=== PATIENT | male | born 1960 | race Caucasian/White ===

== ENCOUNTER 2021-04-14 01:14 | Inpatient (IN) | payer MEDICARE, MEDICAID, SELFPAY ==
[2021-04-14] VITALS (17 sets, daily range): BP systolic 129–168; BP diastolic 70–92; PULSE 85–109; RESP 11–24; TEMP 36.8–37.6; O2SAT 97–100; BMI 27.8
--- NOTE | ~2021-04-14 | CT_ITS ---
EXAMINATION: CT CHEST WITHOUT CONTRAST CT ABDOMEN AND PELVIS WITHOUT AND WITH CONTRAST CLINICAL INFORMATION: Shortness of breath. Cough. Nausea, vomiting, diarrhea. Melena. Pain. COMPARISON: None TECHNIQUE: Multidetector volumetric CT imaging of the chest was done. Noncontrast CT of the abdomen and pelvis performed followed by administration of 80 mL of Omnipaque 350 IV contrast. Acquisition of the abdomen and pelvis then performed during the arterial phase and after a 2 minute delay. Axial MIP volume rendering provided. Sagittal and coronal reformatted images were obtained. This CT examination was performed using dose optimization techniques as appropriate, variously including the following: *Automated exposure control *Adjustment of mA and/or kV according to patient size (this includes techniques or standardized protocols for targeted exams where dose is matched to indication/reason for exam; i.e. extremities or head) *Use of iterative reconstruction technique DLP: 1909 mGy-cm FINDINGS: LUNGS: The central airways are patent. Mild centrilobular emphysema. No dense consolidation. Linear atelectasis/scarring of the anterior right middle lobe. No pneumothorax. Small calcified granuloma at the left lung base. MEDIASTINUM: Normal heart size with coronary artery calcification. No pericardial effusion. No mediastinal lymphadenopathy. PLEURA: There is no pleural effusion. No pleural mass or thickening. AXILLA: No lymphadenopathy. LIVER, GALLBLADDER, AND BILIARY TREE: The liver is normal in size, shape, and attenuation. No focal hepatic lesion or biliary ductal dilatation is present. The gallbladder is unremarkable with no evidence of radiopaque gallstones, gallbladder wall thickening, or obvious pericholecystic inflammatory changes. PANCREAS: Unremarkable. SPLEEN: Unremarkable. ADRENAL GLANDS: Unremarkable. KIDNEYS AND URETERS: The kidneys are normal in size, shape, and attenuation. No hydronephrosis, hydroureter, or calculi seen. No perinephric stranding. BLADDER: Unremarkable. GASTROINTESTINAL TRACT: The stomach is unremarkable. Normal caliber of the small bowel. There is no obstruction. Diffuse colonic diverticulosis noted without diverticulitis. No colonic wall thickening or inflammatory change. There is a normal appendix. Mild to moderate colonic stool burden. There is no blush of contrast intraluminally to suggest an active arterial bleed. No pooling of contrast on the 2 minute delayed acquisition. ABDOMINAL WALL: No significant hernia is appreciated. LYMPH NODES: Normal. VASCULAR: Normal caliber aorta with mild atherosclerotic calcifications. PELVIC VISCERA: The prostate and seminal vesicles are unremarkable. OSSEOUS STRUCTURES: No acute or suspicious osseous abnormality. Mild degenerative changes throughout the spine. Cervical fusion hardware anteriorly at C6-C7 noted. Mild degenerative changes of the hips. Partially fused bilateral sacroiliac joints. CT/CT gi bleed abd pel wo/w con IMPRESSION: 1. Mild emphysema in the lungs. No consolidation. 2. No evidence of active GI bleed. Colonic diverticulosis without diverticulitis. Fleischner guidelines were followed.
--- NOTE | 2021-04-14 01:43 | ED.NAVMDI ---
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 Patient is a sometimes cigarette smoker and states that approximately 5 days ago he awoke in the middle the night and immediately became nauseous and began vomiting with dizziness and shortness of breath. Patient states that since that time he is consistently had nausea and vomiting that he denies any blood was present. In addition, patient has had numerous episodes of diarrhea that have become watery in nature but he denies any presence gross blood or darkness to it. Patient states this evening he began developing some chest pain and has been unable to keep his medications down for the past 2 days which include his methadone. Related Data Allergies Allergy/AdvReac Type Severity Reaction Status Date / Time prochlorperazine Allergy Unknown TINGLING Verified 04/14/21 02:01 [From COMPAZINE] Review of Systems Review of Systems: Pertinent positives and negatives as stated in HPI 10 point review of systems otherwise negative. [facility] Past Medical History Source: nursing notes reviewed Social History Social History Advance Directives: No Physical Exam Vital Signs: Vital Signs: Last Vital Signs Temp 98.6 F 04/14/21 05:31 Pulse 92 04/14/21 05:31 Resp 16 04/14/21 05:31 BP 148/82 H 04/14/21 05:31 Pulse Ox 98 04/14/21 04:01 BMI result Body Mass Index 27.8 VITAL SIGNS: Reviewed. GENERAL: Well developed, well nourished, in no acute distress. HEAD: Normocephalic/atraumatic EYES: PERRLA, EOMI with conjunctival pallor OROPHARYNX: no oral lesions noted, posterior pharynx clear, with pale mucosa NECK: Supple, no adenopathy LUNGS: Normal breath sounds, with tachypnea SpO2<100> CARDIOVASCULAR: Regular rate and rhythm without noted murmurs, no JVD or lower extremity edema. ABDOMEN: Soft, mild abdominal discomfort, non-distended with bowel sounds. JIM: No skin tags or external hemorrhoids noted, melena noted to finger, good rectal tone. MUSCULOSKELETAL: No tenderness, deformities, or effusions noted on gross inspection. EXTREMITIES: No cyanosis, clubbing or edema. SKIN: Inspection of the skin reveals no rashes, but discoloration noted between pallor/jaundice NEUROLOGIC: Alert and oriented x 4. Strength and sensation to light touch were grossly intact x 4. Course Course Course Narrative: 60-year-old male with history and clinical presentation concerning for anemia and possibly liver problems. On review of all investigations patient is severely anemic with MCV-97.8, and RBC-1.35. Retic Count-7.6%. Patient T&S with 3U RBCs ordered. All investigations reviewed to include imaging and this case was discussed with the inpatient hospitalist who accepts admission. MDM - Nausea/Vomiting/Diarrhea Lab Data Result diagrams: 04/14/21 02:45 04/14/21 02:45 Labs: Lab Results 04/14/21 04/14/21 04/14/21 Range/Units 01:48 02:45 02:45 WBC 10.4 (4.8-10.8) X10*3/uL RBC 1.35 L (4.60-5.80) X10*6/uL Hgb 4.4 L* (14.0-18.0) g/dl Hct 13.2 L* (42.0-52.0) % MCV 97.8 (80.0-98.0) fL MCH 32.6 (27.0-33.0) pg MCHC 33.3 (31.0-36.0) g/dl RDW 14.3 (11.0-16.0) % Plt Count 195 (160-400) X10*3/uL MPV 8.8 L (9.4-12.4) fL Immature Gran % (Auto) 2.1 H (0.0-0.4) % Neut % (Auto) 73.7 H (45-73) % Lymph % (Auto) 16.5 L (20-40) % [place] % (Auto) 7.3 (2-11) % Eos % (Auto) 0.3 (0-4) % Baso % (Auto) 0.1 (0-2) % Lymph # (Auto) 1.7 (1.2-4.9) X10*3/uL [place] # (Auto) 0.8 (0.1-1.2) X10*3/uL Eos # (Auto) 0.0 (0.0-0.4) X10*3/uL Baso # (Auto) 0.0 (0.0-0.2) X10*3/uL Abs Immat Gran (auto) 0.22 H (0.00-0.03) X10*3/uL Absolute Neuts (auto) 7.7 (2.0-8.3) x10*3/uL Absolute Nucleated RBC 0.070 H (0.0-0.012) X10*3/uL Nucleated RBC % (auto) 0.7 H (0.0-0.2) /100WBC Absolute Retic (0.026-0.095) X10*6/uL Percent Retic (0.5-1.8) % Immature Retic Fraction (2.3-13.4) % Retic Hgb Equivalent (30.0-35.0) pg Sodium 139 (135-145) mmol/L Potassium 3.7 (3.3-5.1) mmol/L Chloride 107 (96-108) mmol/L Carbon Dioxide 25 (22-29) mmol/L Anion Gap 11 L (12-20) BUN 12 (9-16) mg/dL Creatinine 0.80 (0.5-1.4) mg/dL Estim Creat Clear Calc 109.1 Estimated GFR > 60 Random Glucose 111 (60-115) mg/dL Lactic Acid (0.5-2.0) mmol/L Calcium 8.2 L (8.4-10.2) mg/dL Magnesium 2.0 (1.6-2.6) mg/dL Total Bilirubin < 0.2 (0.0-1.0) mg/dL AST 11 (5-37) U/L ALT 8 (0-40) U/L Alkaline Phosphatase 46 (39-117) U/L Lactate Dehydrogenase 125 (118-273) U/L Troponin I High Sens (<3.5-35.0) ng/L B-Natriuretic Peptide (<100) pg/mL Total Protein 5.2 L (6.5-8.0) g/dL Albumin 3.5 (3.5-5.0) g/dL Lipase 11 (8-78) U/L Urine Color Urine Appearance Urine pH (5.0-8.0) Ur Specific [place] (1.005-1.025) Urine Protein (NEG-TRACE) MG/DL Urine Glucose (UA) (NEG) MG/DL Urine Ketones (NEG) MG/DL Urine Blood (NEG) Urine Nitrite (NEG) Ur Leukocyte Esterase (NEG) Stool Occult Blood (NEGATIVE) COVID-19 (KEILY) Negative (Negative) COVID-19 Clin Com See Note Blood Type Antibody Screen Crossmatch 04/14/21 04/14/21 04/14/21 Range/Units 02:45 02:45 03:01 WBC (4.8-10.8) X10*3/uL RBC (4.60-5.80) X10*6/uL Hgb (14.0-18.0) g/dl Hct (42.0-52.0) % MCV (80.0-98.0) fL MCH (27.0-33.0) pg MCHC (31.0-36.0) g/dl RDW (11.0-16.0) % Plt Count (160-400) X10*3/uL MPV (9.4-12.4) fL Immature Gran % (Auto) (0.0-0.4) % Neut % (Auto) (45-73) % Lymph % (Auto) (20-40) % [place] % (Auto) (2-11) % Eos % (Auto) (0-4) % Baso % (Auto) (0-2) % Lymph # (Auto) (1.2-4.9) X10*3/uL [place] # (Auto) (0.1-1.2) X10*3/uL Eos # (Auto) (0.0-0.4) X10*3/uL Baso # (Auto) (0.0-0.2) X10*3/uL Abs Immat Gran (auto) (0.00-0.03) X10*3/uL Absolute Neuts (auto) (2.0-8.3) x10*3/uL Absolute Nucleated RBC (0.0-0.012) X10*3/uL Nucleated RBC % (auto) (0.0-0.2) /100WBC Absolute Retic (0.026-0.095) X10*6/uL Percent Retic (0.5-1.8) % Immature Retic Fraction (2.3-13.4) % Retic Hgb Equivalent (30.0-35.0) pg Sodium (135-145) mmol/L Potassium (3.3-5.1) mmol/L Chloride (96-108) mmol/L Carbon Dioxide (22-29) mmol/L Anion Gap (12-20) BUN (9-16) mg/dL Creatinine (0.5-1.4) mg/dL Estim Creat Clear Calc Estimated GFR Random Glucose (60-115) mg/dL Lactic Acid 1.2 (0.5-2.0) mmol/L Calcium (8.4-10.2) mg/dL Magnesium (1.6-2.6) mg/dL Total Bilirubin (0.0-1.0) mg/dL AST (5-37) U/L ALT (0-40) U/L Alkaline Phosphatase (39-117) U/L Lactate Dehydrogenase (118-273) U/L Troponin I High Sens 3.5 (<3.5-35.0) ng/L B-Natriuretic Peptide 96 (<100) pg/mL Total Protein (6.5-8.0) g/dL Albumin (3.5-5.0) g/dL Lipase (8-78) U/L Urine Color Urine Appearance Urine pH (5.0-8.0) Ur Specific [place] (1.005-1.025) Urine Protein (NEG-TRACE) MG/DL Urine Glucose (UA) (NEG) MG/DL Urine Ketones (NEG) MG/DL Urine Blood (NEG) Urine Nitrite (NEG) Ur Leukocyte Esterase (NEG) Stool Occult Blood (NEGATIVE) COVID-19 (KEILY) (Negative) COVID-19 Clin Com Blood Type A Positive Antibody Screen NEGATIVE Crossmatch See Detail 04/14/21 04/14/21 04/14/21 Range/Units 03:01 03:39 03:53 WBC (4.8-10.8) X10*3/uL RBC (4.60-5.80) X10*6/uL Hgb (14.0-18.0) g/dl Hct (42.0-52.0) % MCV (80.0-98.0) fL MCH (27.0-33.0) pg MCHC (31.0-36.0) g/dl RDW (11.0-16.0) % Plt Count (160-400) X10*3/uL MPV (9.4-12.4) fL Immature Gran % (Auto) (0.0-0.4) % Neut % (Auto) (45-73) % Lymph % (Auto) (20-40) % [place] % (Auto) (2-11) % Eos % (Auto) (0-4) % Baso % (Auto) (0-2) % Lymph # (Auto) (1.2-4.9) X10*3/uL [place] # (Auto) (0.1-1.2) X10*3/uL Eos # (Auto) (0.0-0.4) X10*3/uL Baso # (Auto) (0.0-0.2) X10*3/uL Abs Immat Gran (auto) (0.00-0.03) X10*3/uL Absolute Neuts (auto) (2.0-8.3) x10*3/uL Absolute Nucleated RBC (0.0-0.012) X10*3/uL Nucleated RBC % (auto) (0.0-0.2) /100WBC Absolute Retic 0.105 H (0.026-0.095) X10*6/uL Percent Retic 7.6 H (0.5-1.8) % Immature Retic Fraction 50.5 H (2.3-13.4) % Retic Hgb Equivalent 35.8 H (30.0-35.0) pg Sodium (135-145) mmol/L Potassium (3.3-5.1) mmol/L Chloride (96-108) mmol/L Carbon Dioxide (22-29) mmol/L Anion Gap (12-20) BUN (9-16) mg/dL Creatinine (0.5-1.4) mg/dL Estim Creat Clear Calc Estimated GFR Random Glucose (60-115) mg/dL Lactic Acid (0.5-2.0) mmol/L Calcium (8.4-10.2) mg/dL Magnesium (1.6-2.6) mg/dL Total Bilirubin (0.0-1.0) mg/dL AST (5-37) U/L ALT (0-40) U/L Alkaline Phosphatase (39-117) U/L Lactate Dehydrogenase (118-273) U/L Troponin I High Sens (<3.5-35.0) ng/L B-Natriuretic Peptide (<100) pg/mL Total Protein (6.5-8.0) g/dL Albumin (3.5-5.0) g/dL Lipase (8-78) U/L Urine Color YELLOW Urine Appearance CLEAR Urine pH 7.5 (5.0-8.0) Ur Specific [place] 1.010 (1.005-1.025) Urine Protein NEG (NEG-TRACE) MG/DL Urine Glucose (UA) NEG (NEG) MG/DL Urine Ketones 5 (NEG) MG/DL Urine Blood NEG (NEG) Urine Nitrite NEG (NEG) Ur Leukocyte Esterase NEG (NEG) Stool Occult Blood POSITIVE (NEGATIVE) COVID-19 (KEILY) (Negative) COVID-19 Clin Com Blood Type Antibody Screen Crossmatch Discharge Plan Discharge Clinical Impression: Gastroenteritis, Dehydration, Acute blood loss anemia Patient Disposition: Admitted As Inpatient
[2021-04-14] MEDS: ondansetron HCL 4 MG/2 ML VIAL IVPUSH ×5 (01:54→21:56)
[2021-04-14] MEDS: Acetaminophen 325 MG TABLET 975 MG PO (01:54)
[2021-04-14] MEDS: 0.9 % Sodium Chloride 2,000 ML 999 ML IV (02:01)
[2021-04-14 02:09] LABS: COVID-19 Test Negative (Negative); IDNOW Serial# 9DD0AD1C
[2021-04-14 02:50] LABS: MANUAL DIFF FLAG NO
[2021-04-14 02:51] LABS: Basophils Percent Auto 0.1 % (0-2); Eosinophils Percent Auto 0.3 % (0-4); Imm Gran Abs Auto 0.22 X10*3/uL (0.00-0.03); Imm Gran Pct Auto 2.1 % (0.0-0.4); Lymphocytes Absolute Auto 1.7 X10*3/uL (1.2-4.9); Lymphocytes Percent Auto 16.5 % (20-40); Mean Corpuscular HGB Conc 33.3 g/dl (31.0-36.0); Mean Corpuscular Hemoglobin 32.6 pg (27.0-33.0); Mean Corpuscular Volume 97.8 fL (80.0-98.0); Mean Platelet Volume 8.8 fL (9.4-12.4); Monocytes Absolute Auto 0.8 X10*3/uL (0.1-1.2); Monocytes Percent Auto 7.3 % (2-11); NRBC Pct Auto 0.7 /100WBC (0.0-0.2); Neutrophils Absolute Auto 7.7 x10*3/uL (2.0-8.3); Neutrophils Percent Auto 73.7 % (45-73); Platelet Count 195 X10*3/uL (160-400); Red Blood Count 1.35 X10*6/uL (4.60-5.80); Red Cell Distribution Width 14.3 % (11.0-16.0); White Blood Count 10.4 X10*3/uL (4.8-10.8)
[2021-04-14 02:54] LABS: Hematocrit 13.2 % (42.0-52.0); Hemoglobin 4.4 g/dl (14.0-18.0)
--- NOTE | 2021-04-14 03:00 | PC.NURSE ---
Assumed care of pt Pt arrived via EMS Pt c/o n/v/d x 5 days. Denies any abdominal pain Pt also c/o SOB with exertion Per pt, has not gotten Covid Vaccine. Denies any sick contacts or recent travel Will continue to monitor
[2021-04-14 03:04] LABS: Lactic Acid 1.2 mmol/L (0.5-2.0)
[2021-04-14 03:08] LABS: Immature Retic Fraction 50.5 % (2.3-13.4); Retic HGB Equivalent 35.8 pg (30.0-35.0); Reticulocyte Percent 7.6 % (0.5-1.8); Reticulocytes Absolute 0.105 X10*6/uL (0.026-0.095)
[2021-04-14 03:09] LABS: Alanine Aminotransferase 8 U/L (0-40); Albumin Level 3.5 g/dL (3.5-5.0); Alkaline Phosphatase 46 U/L (39-117); Anion Gap 11 (12-20); Aspartate Amino Transferase 11 U/L (5-37); Bilirubin Total < 0.2 mg/dL (0.0-1.0); Blood Urea Nitrogen 12 mg/dL (9-16); Calcium 8.2 mg/dL (8.4-10.2); Carbon Dioxide 25 mmol/L (22-29); Chloride 107 mmol/L (96-108); Creatinine Clr Calc Pharmacy 109.1; Estimated Glomerular Filt Rate > 60; Glucose Random 111 mg/dL (60-115); Lipase 11 U/L (8-78); Potassium 3.7 mmol/L (3.3-5.1); Sodium 139 mmol/L (135-145); Total Protein 5.2 g/dL (6.5-8.0)
[2021-04-14 03:16] LABS: B Type Natriuretic Peptide 96 pg/mL (<100); Troponin-I High Sensitivity 3.5 ng/L (<3.5-35.0)
[2021-04-14 03:33] LABS: Lactate Dehydrogenase 125 U/L (118-273)
[2021-04-14 03:45] LABS: Appearance Urine CLEAR; Color Urine YELLOW; Glucose Urine UA NEG (NEG); Leukocyte Esterase Urine NEG (NEG); Nitrite Urine NEG (NEG); PH 7.5 (5.0-8.0); Urine Blood NEG (NEG); Urine Ketones 5 MG/DL (NEG); Urine Protein NEG (NEG-TRACE)
--- NOTE | 2021-04-14 03:45 | PC.NURSE ---
Pt given urinal per request. Pt c/o inability to void. Per pt, secondary to ADHD meds. Bladder scan = >230 mL. As this nurse was putting back bladder scanner, pt attempted to void in urinal and had output of 300 cc. output clear and pale yellow urine Will continue to monitor
[2021-04-14 03:56] LABS: OBS Int Ctl Valid YES; OBS1 POSITIVE (NEGATIVE)
[2021-04-14] MEDS: Pantoprazole Sodium 40 MG/10 ML VIAL 80 MG IVPUSH (04:03)
[2021-04-14] MEDS: HYDROmorphone HCl 1 MG/ML SYRINGE IVPUSH (04:20)
[2021-04-14] MEDS: iohexoL 350 MG/ML 100 ML INFUS..BTL 80 ML IV (04:59)
--- NOTE | 2021-04-14 05:54 | PC.NURSE ---
First unit of PRBC infusing through warmer with WAYNE Anand as second check. Pt tolerating first unit Pt continious to c/o nausea and pain. MD made aware Will continue to monitor
--- NOTE | 2021-04-14 06:55 | P.HPHOSP_ITS ---
History of Present Illness Date of Service: 04/14/21 Chief Complaint: abd pain This is a 60-year-old male who reports history of hypertension who presents to the hospital with complaints of abdominal pain nausea or vomiting for the past 5 days. Patient reports generalized abdominal pain, diarrhea that is dark/tarry in color, no fever or chills, has SOB, no chest pain. no urinary symptoms. no headache or change in vision, has dizziness. He denies use of NSAIDs. All other review of system negative On arrival to the ED patient hemodynamically stable with no significant abnormal vitals satting 100% on room air Labs are significant for hemoglobin of 4.4 hematocrit of 13.2, no previous for comparison. BUN normal, UA negative. Chest CT and abdominal CT negative. Abdominal CT showed diverticulosis with no diverticulitis. Guaiac positive Patient receiving 2 units of PRBC and will be admitted for further management Review of Systems Review of Systems: Yes all other systems are reviewed and are negative [facility] Medical History (Updated 04/14/21 @ 06:59 by Rachael Lopez MD) Hypertension Family History (Updated 04/14/21 @ 07:00 by Rachael Lopez MD) Other No family history of disorders Surgical History (Updated 04/14/21 @ 07:00 by Rachael Lopez MD) No pertinent past surgical history Social History Advance Directives: No Meds Allergies Allergy/AdvReac Type Severity Reaction Status Date / Time prochlorperazine Allergy Unknown TINGLING Verified 04/14/21 02:01 [From COMPAZINE] Physical Exam Vital Signs and Narrative: Vital Signs: Last Vital Signs Temp 98.2 F 04/14/21 06:55 Pulse 109 H 04/14/21 06:55 Resp 13 04/14/21 06:55 BP 156/84 H 04/14/21 06:55 Pulse Ox 100 04/14/21 06:16 BMI result Body Mass Index 27.8 Const: General: cooperative and no acute distress Orientation/consciousness: patient oriented x3 Eyes: General: appearance normal, both eyes and all related structures Pupils: Equal, round and reactive pupils present Resp: Effort & Inspection: normal respiratory effort, able to speak in complete sentences and abnormal respiratory pattern Auscultation: clear to auscultation bilaterally Cardio: Rate: regular rate Rhythm: regular rhythm GI: Other: abd tenderness with minimal palpation, soft abdo, guarding Skin: General skin exam: no rashes or lesions noted Neuro: General: patient oriented x3 Cranial nerves: Yes Equal, round and reactive pupils present Cognition (Neuro): normal cognition Extrem: General: Yes normal to inspection and Yes no pedal edema Results Labs CBC and Chem 7: 04/14/21 02:45 04/14/21 02:45 Labs: Laboratory Results - last 24 hr 04/14/21 04/14/21 04/14/21 01:48 02:45 02:45 MCV 97.8 MCH 32.6 MCHC 33.3 RDW 14.3 Plt Count 195 MPV 8.8 L Immature Gran % (Auto) 2.1 H Neut % (Auto) 73.7 H Lymph % (Auto) 16.5 L [place] % (Auto) 7.3 Eos % (Auto) 0.3 Baso % (Auto) 0.1 Lymph # (Auto) 1.7 [place] # (Auto) 0.8 Eos # (Auto) 0.0 Baso # (Auto) 0.0 Abs Immat Gran (auto) 0.22 H Absolute Neuts (auto) 7.7 Absolute Nucleated RBC 0.070 H Nucleated RBC % (auto) 0.7 H Absolute Retic Percent Retic Immature Retic Fraction Retic Hgb Equivalent Anion Gap 11 L Estim Creat Clear Calc 109.1 Estimated GFR > 60 Random Glucose 111 Lactic Acid Calcium 8.2 L Magnesium 2.0 Total Bilirubin < 0.2 AST 11 ALT 8 Alkaline Phosphatase 46 Lactate Dehydrogenase 125 Troponin I High Sens B-Natriuretic Peptide Total Protein 5.2 L Albumin 3.5 Lipase 11 Urine Color Urine Appearance Urine pH Ur Specific [place] Urine Protein Urine Glucose (UA) Urine Ketones Urine Blood Urine Nitrite Ur Leukocyte Esterase Stool Occult Blood COVID-19 (KEILY) Negative COVID-19 Clin Com See Note Blood Type Antibody Screen Crossmatch 04/14/21 04/14/21 04/14/21 02:45 02:45 03:01 MCV MCH MCHC RDW Plt Count MPV Immature Gran % (Auto) Neut % (Auto) Lymph % (Auto) [place] % (Auto) Eos % (Auto) Baso % (Auto) Lymph # (Auto) [place] # (Auto) Eos # (Auto) Baso # (Auto) Abs Immat Gran (auto) Absolute Neuts (auto) Absolute Nucleated RBC Nucleated RBC % (auto) Absolute Retic Percent Retic Immature Retic Fraction Retic Hgb Equivalent Anion Gap Estim Creat Clear Calc Estimated GFR Random Glucose Lactic Acid 1.2 Calcium Magnesium Total Bilirubin AST ALT Alkaline Phosphatase Lactate Dehydrogenase Troponin I High Sens 3.5 B-Natriuretic Peptide 96 Total Protein Albumin Lipase Urine Color Urine Appearance Urine pH Ur Specific [place] Urine Protein Urine Glucose (UA) Urine Ketones Urine Blood Urine Nitrite Ur Leukocyte Esterase Stool Occult Blood COVID-19 (KEILY) COVID-19 Clin Com Blood Type A Positive Antibody Screen NEGATIVE Crossmatch See Detail 04/14/21 04/14/21 04/14/21 03:01 03:39 03:53 MCV MCH MCHC RDW Plt Count MPV Immature Gran % (Auto) Neut % (Auto) Lymph % (Auto) [place] % (Auto) Eos % (Auto) Baso % (Auto) Lymph # (Auto) [place] # (Auto) Eos # (Auto) Baso # (Auto) Abs Immat Gran (auto) Absolute Neuts (auto) Absolute Nucleated RBC Nucleated RBC % (auto) Absolute Retic 0.105 H Percent Retic 7.6 H Immature Retic Fraction 50.5 H Retic Hgb Equivalent 35.8 H Anion Gap Estim Creat Clear Calc Estimated GFR Random Glucose Lactic Acid Calcium Magnesium Total Bilirubin AST ALT Alkaline Phosphatase Lactate Dehydrogenase Troponin I High Sens B-Natriuretic Peptide Total Protein Albumin Lipase Urine Color YELLOW Urine Appearance CLEAR Urine pH 7.5 Ur Specific [place] 1.010 Urine Protein NEG Urine Glucose (UA) NEG Urine Ketones 5 Urine Blood NEG Urine Nitrite NEG Ur Leukocyte Esterase NEG Stool Occult Blood POSITIVE COVID-19 (KEILY) COVID-19 Clin Com Blood Type Antibody Screen Crossmatch Imaging Radiologist's Impressions: Impressions Abdomen/Pelvis CT 04/14/21 04:50 IMPRESSION: 1. Mild emphysema in the lungs. No consolidation. 2. No evidence of active GI bleed. Colonic diverticulosis without diverticulitis. Fleischner guidelines were followed. Chest CT 04/14/21 04:50 IMPRESSION: 1. Mild emphysema in the lungs. No consolidation. 2. No evidence of active GI bleed. Colonic diverticulosis without diverticulitis. Fleischner guidelines were followed. Assessment and Plan (1) Acute blood loss anemia: Status: Acute (2) Abdominal pain: Status: Acute (3) Nausea vomiting and diarrhea: Status: Acute (4) Gastroenteritis: Status: Acute 60-year-old male with past medical history of hypertension presents the hospital with complaints of abdominal pain nausea vomiting as well as dark diarrhea found to have acute anemia # acute blood loss anemia - guaiac positive - normal BUN - denies history of NSAID use - possibly secondary to gastroenteritis - transfused 2 units of PRBC - follow CBC post transfusion - GI consulted - IV PPI BID # abdominal pain, nausea vomiting, diarrhea - abd CT negative - possibly secondary to gastroenteritis - will obtain C diff, as well as stool culture - supportive measure - pain control # on methadone - care team consulted as pt will be npo # HTN - stable - not on home medications - monitor DVT ppx: SCDs Quality Stroke Does the patient have a stroke diagnosis?: No VTE Prior VTE?: No VTE Risk Level:: Medical - moderate - high VTE Device Contraindication: N/A - Device Ordered VTE Drug Contraindication: N/A - Med Ordered
[2021-04-14] MEDS: HYDROmorphone HCl 1 MG/ML SYRINGE 0.5 MG IVPUSH ×3 (07:34→22:00)
--- NOTE | 2021-04-14 08:24 | PM.GICN ---
History of Present Illness Data of Consult Service Date: 04/14/21 Requesting physician: Rachael Lopez Primary Care Provider: Unknown Physician HPI Reason for consult: anemia 60-year-old male w/ history of hypertension, ADHD and OA who I am seeing for assessment for acute anemia. he has had severe burning diffuse abdominal pain 10/10 in severity without radiation which is constant for the last 5 days and is worse with eating food. he has noted coffee colored emesis and nausea, as well as dark tarry stools. Prior to this he was normal, denies weight loss, but brown shave poor appetite last few days. no chest pain. no urinary symptoms. no headache or change in vision, has dizziness. no fever or chills. He denies use of NSAIDs. remote hx of drug use, but no alcohol . Never had EGD or colonoscopy. Labs are significant for hemoglobin of 4.4 hematocrit of 13.2, no previous for comparison.? BUN normal, UA negative.? Chest CT and abdominal CT negative.? Abdominal CT showed diverticulosis with no diverticulitis. Guaiac positive. Patient receiving 2 units of PRBC Review of Systems Review of Systems: Constitutional : No Weight loss, No Fever, No Chills ENT/Mouth : No sore throat, No Rhinorrhea Eyes: No Swelling, No Redness Cardiovascular : No Chest Pain, No SOB, No Edema Respiratory : No Cough, No Sputum, No Wheezing Gastrointestinal : see HPI Genitourinary : NO Dysuria, No Urinary Frequency, No Hematuria, No Urgency Musculoskeletal : + joint pain, No Myalgias, No Joint Swelling Skin : No Skin Lesions, No rash Neuro : No Weakness, No Numbness, No Dizziness, No Headache Psych : No Anxiety/Panic, No Depression Heme/Lymph: No Bruising, No Lymphadenopathy Endocrine : No Polyuria, No Polydipsia All other systems reviewed and are negative. [facility] Past Medical History Medical History (Updated 04/14/21 @ 06:59 by Rachael Lopez MD) Hypertension Family History Family History (Updated 04/14/21 @ 07:00 by Rachael Lopez MD) Other No family history of disorders Surgical History Surgical History (Updated 04/14/21 @ 07:00 by Rachael Lopez MD) No pertinent past surgical history Social History Social History Advance Directives: No Meds Allergies Allergy/AdvReac Type Severity Reaction Status Date / Time prochlorperazine Allergy Unknown [place] Verified 04/14/21 02:01 [From COMPAZINE] Active Medications: Current Medications Acetaminophen (Acetaminophen 325 Mg Tablet) 650 mg PO Q6H PRN PRN Reason: Pain, Mild (Pain Scale 1-3) Hydromorphone HCl (Hydromorphone Hcl 1 Mg/Ml Syringe) 0.5 mg IVPUSH Q4H PRN; Protocol PRN Reason: Pain, Severe (Pain Scale 7-10) Last Admin: 04/14/21 07:34 Dose: 0.5 mg Documented by: Lactated Ringer's (Lr) 1,000 mls @ 100 mls/hr IVCONT .Q10H CATHLEEN Ondansetron HCl (Ondansetron Hcl 4 Mg/2 Ml Vial) 4 mg IVPUSH Q8H PRN PRN Reason: Nausea and Vomiting Last Admin: 04/14/21 07:34 Dose: 4 mg Documented by: Pantoprazole Sodium (Pantoprazole Sodium 40 Mg/10 Ml Vial) 40 mg IVPUSH BID@0630,1630 [facility] Sodium Chloride (0.9 % Sodium Chloride Flush 3 Ml Syringe) 3 ml IVFLUSH QSHIFT [facility] Home Medications Medication Instructions Recorded Confirmed Last Taken Type amlodipine 10 mg tablet 1 tab PO DAILY 04/14/21 Unknown History dextroamphetamine-amphetamine ER 1 cap PO BEDTIME 04/14/21 Unknown History 30 mg 24hr capsule,extend release gabapentin 800 mg tablet 1 tab PO TID 04/14/21 Unknown History lisinopril 40 mg tablet 40 mg PO DAILY 04/14/21 Unknown History methadone 10 mg/mL oral concentrate 110 mg PO DAILY 04/14/21 Unknown History Physical Exam Vital Signs: Vital Signs: Last Vital Signs Temp 98.2 F 04/14/21 07:23 Pulse 88 04/14/21 07:23 Resp 18 04/14/21 07:23 BP 162/84 H 04/14/21 07:23 Pulse Ox 97 04/14/21 07:23 BMI result Body Mass Index 27.8 Const: General: cooperative (pallor noted ) Orientation/consciousness: patient oriented x3 Eyes: General: appearance normal, both eyes and all related structures Pupils: Equal, round and reactive pupils present Resp: Effort & Inspection: normal respiratory effort, able to speak in complete sentences and abnormal respiratory pattern Auscultation: clear to auscultation bilaterally Cardio: Rate: regular rate Rhythm: regular rhythm GI: Other: abd tenderness with minimal palpation, soft abdo, guarding Skin: General skin exam: no rashes or lesions noted Neuro: General: patient oriented x3 Cranial nerves: Yes Equal, round and reactive pupils present Cognition (Neuro): normal cognition Extrem: General: Yes normal to inspection and Yes no pedal edema Results Labs CBC & Chem 7: 04/14/21 02:45 04/14/21 02:45 Labs: Short CBC 04/14/21 Range/Units 02:45 WBC 10.4 (4.8-10.8) X10*3/uL Hgb 4.4 L* (14.0-18.0) g/dl Hct 13.2 L* (42.0-52.0) % Plt Count 195 (160-400) X10*3/uL BMP 04/14/21 02:45 Sodium 139 Potassium 3.7 Chloride 107 Carbon Dioxide 25 BUN 12 Creatinine 0.80 Calcium 8.2 L Liver Function 04/14/21 Range/Units 02:45 Total Bilirubin < 0.2 (0.0-1.0) mg/dL AST 11 (5-37) U/L ALT 8 (0-40) U/L Alkaline Phosphatase 46 (39-117) U/L Albumin 3.5 (3.5-5.0) g/dL Urine 04/14/21 Range/Units 03:39 Urine Color YELLOW Urine Appearance CLEAR Urine pH 7.5 (5.0-8.0) Ur Specific [place] 1.010 (1.005-1.025) Urine Protein NEG (NEG-TRACE) MG/DL Urine Glucose (UA) NEG (NEG) MG/DL Imaging CT scan - abdomen: Attestation: I personally reviewed and interpreted this imaging study as follows: My impression: atherosclerosis, constipation, diverticulosis Assessment and Plan (1) Acute blood loss anemia: Status: Acute 1/ Acute blood loss anemia possibly due to PUD, j carlos vee tear, colitis, gastroenteritis, no acute findings on imaging, no evidence of aorto enteric fistula or ischemic bowel, no bone marrow failure with good retic count PLAN: 1/ EGD and colonoscopy tomorrow 2/ can allow clears if tolerated 3/ scheduled anti emetic 4/ PPI -pantoprazole 40 mg IV BID 5/ check Hep b, C status Procedures Date of Service Date of Service: 04/14/21
--- NOTE | 2021-04-14 08:26 | P.PNIM_ITS ---
Subjective Subjective Date of Service: 04/14/21 Physical Exam Vital Signs: Vital Signs: Last Vital Signs Temp 98.2 F 04/14/21 07:23 Pulse 88 04/14/21 07:23 Resp 18 04/14/21 07:23 BP 162/84 H 04/14/21 07:23 Pulse Ox 97 04/14/21 07:23 BMI result Body Mass Index 27.8 Objective Data Active Medications Acetaminophen (Acetaminophen 325 Mg Tablet) 650 mg PO Q6H PRN PRN Reason: Pain, Mild (Pain Scale 1-3) Hydromorphone HCl (Hydromorphone Hcl 1 Mg/Ml Syringe) 0.5 mg IVPUSH Q4H PRN; Protocol PRN Reason: Pain, Severe (Pain Scale 7-10) Last Admin: 04/14/21 07:34 Dose: 0.5 mg Documented by: ALEXANDRO Lactated Ringer's (Lr) 1,000 mls @ 100 mls/hr IVCONT .Q10H CATHLEEN Ondansetron HCl (Ondansetron Hcl 4 Mg/2 Ml Vial) 4 mg IVPUSH Q8H PRN PRN Reason: Nausea and Vomiting Last Admin: 04/14/21 07:34 Dose: 4 mg Documented by: ALEXANDRO Pantoprazole Sodium (Pantoprazole Sodium 40 Mg/10 Ml Vial) 40 mg IVPUSH BID@0630,1630 [facility] Sodium Chloride (0.9 % Sodium Chloride Flush 3 Ml Syringe) 3 ml IVFLUSH QSHIFT [facility] Labs CBC & Chem 7: 04/14/21 02:45 04/14/21 02:45 Labs: Laboratory Results - last 24 hr 04/14/21 04/14/21 04/14/21 01:48 02:45 02:45 MCV 97.8 MCH 32.6 MCHC 33.3 RDW 14.3 Plt Count 195 MPV 8.8 L Immature Gran % (Auto) 2.1 H Neut % (Auto) 73.7 H Lymph % (Auto) 16.5 L [place] % (Auto) 7.3 Eos % (Auto) 0.3 Baso % (Auto) 0.1 Lymph # (Auto) 1.7 [place] # (Auto) 0.8 Eos # (Auto) 0.0 Baso # (Auto) 0.0 Abs Immat Gran (auto) 0.22 H Absolute Neuts (auto) 7.7 Absolute Nucleated RBC 0.070 H Nucleated RBC % (auto) 0.7 H Absolute Retic Percent Retic Immature Retic Fraction Retic Hgb Equivalent Anion Gap 11 L Estim Creat Clear Calc 109.1 Estimated GFR > 60 Random Glucose 111 Lactic Acid Calcium 8.2 L Magnesium 2.0 Total Bilirubin < 0.2 AST 11 ALT 8 Alkaline Phosphatase 46 Lactate Dehydrogenase 125 Troponin I High Sens B-Natriuretic Peptide Total Protein 5.2 L Albumin 3.5 Lipase 11 Urine Color Urine Appearance Urine pH Ur Specific [place] Urine Protein Urine Glucose (UA) Urine Ketones Urine Blood Urine Nitrite Ur Leukocyte Esterase Stool Occult Blood COVID-19 (KEILY) Negative COVID-19 Clin Com See Note Blood Type Antibody Screen Crossmatch 04/14/21 04/14/21 04/14/21 02:45 02:45 03:01 MCV MCH MCHC RDW Plt Count MPV Immature Gran % (Auto) Neut % (Auto) Lymph % (Auto) [place] % (Auto) Eos % (Auto) Baso % (Auto) Lymph # (Auto) [place] # (Auto) Eos # (Auto) Baso # (Auto) Abs Immat Gran (auto) Absolute Neuts (auto) Absolute Nucleated RBC Nucleated RBC % (auto) Absolute Retic Percent Retic Immature Retic Fraction Retic Hgb Equivalent Anion Gap Estim Creat Clear Calc Estimated GFR Random Glucose Lactic Acid 1.2 Calcium Magnesium Total Bilirubin AST ALT Alkaline Phosphatase Lactate Dehydrogenase Troponin I High Sens 3.5 B-Natriuretic Peptide 96 Total Protein Albumin Lipase Urine Color Urine Appearance Urine pH Ur Specific [place] Urine Protein Urine Glucose (UA) Urine Ketones Urine Blood Urine Nitrite Ur Leukocyte Esterase Stool Occult Blood COVID-19 (KEILY) COVID-19 Clin Com Blood Type A Positive Antibody Screen NEGATIVE Crossmatch See Detail 04/14/21 04/14/21 04/14/21 03:01 03:39 03:53 MCV MCH MCHC RDW Plt Count MPV Immature Gran % (Auto) Neut % (Auto) Lymph % (Auto) [place] % (Auto) Eos % (Auto) Baso % (Auto) Lymph # (Auto) [place] # (Auto) Eos # (Auto) Baso # (Auto) Abs Immat Gran (auto) Absolute Neuts (auto) Absolute Nucleated RBC Nucleated RBC % (auto) Absolute Retic 0.105 H Percent Retic 7.6 H Immature Retic Fraction 50.5 H Retic Hgb Equivalent 35.8 H Anion Gap Estim Creat Clear Calc Estimated GFR Random Glucose Lactic Acid Calcium Magnesium Total Bilirubin AST ALT Alkaline Phosphatase Lactate Dehydrogenase Troponin I High Sens B-Natriuretic Peptide Total Protein Albumin Lipase Urine Color YELLOW Urine Appearance CLEAR Urine pH 7.5 Ur Specific [place] 1.010 Urine Protein NEG Urine Glucose (UA) NEG Urine Ketones 5 Urine Blood NEG Urine Nitrite NEG Ur Leukocyte Esterase NEG Stool Occult Blood POSITIVE COVID-19 (KEILY) COVID-19 Clin Com Blood Type Antibody Screen Crossmatch Quality Stroke Does the patient have a stroke diagnosis?: No VTE Prior VTE?: No VTE Risk Level:: Medical - moderate - high VTE Device Contraindication: N/A - Device Ordered VTE Drug Contraindication: N/A - Med Ordered
--- NOTE | 2021-04-14 08:50 | PHA.MEDREC ---
Pharmacy Consult ? Medication Reconciliation Pharmacy has completed the medication reconciliation. Pt states he gets methadone 110mg daily at the [facility]. Salina Wheeler, TashD
--- NOTE | 2021-04-14 09:17 | PC.NURSE ---
Pt continues to complain of pain in neck despite dalaudid IV. skin is slightly jaundice, pt is axox3. aware of inlvement of Jennifer BLACK for pain med management and likely endoscopy/colonoscopy. IS Also aware of NPO status. 2nd unite of blood is transfusing. no reactions noted. Unlabored resp. LS CTA. phlebotomy to return after unit 3 for labs.
--- NOTE | 2021-04-14 10:11 | MHC.CM.PN ---
CM MET WITH PT WHO REPORTS HE LIVES WITH HIS S/O AND IS INDEPENDENT WITH ALL CARE PT REPORTS HE HAS A CANE AND NO OTHER DME PT DENIES USING HOME OR COMMUNITY SERVICES PT REPORTS HIS PCP IS VISHNU MITCHELL PT COMPLETED A HCP TODAY NAMING HIS SISTER, KELI VO [phone]) HIS AGENT. IMM DELIVERED, ORIGINAL AT BEDSIDE, COPY SENT TO [facility] CURRENT DC PLAN IS HOME WITH NO SERVICES S/O TO TRANSPORT
--- NOTE | 2021-04-14 10:28 | PC.NURSE ---
SHort stay states that patient is on schedule for tomorrow./ Start colon prep tonight.
--- NOTE | 2021-04-14 10:58 | MHC.RECOVRN ---
Met with pt regarding substance use and methadone dose. Pt connected to [facility]. Pt reports receiving 6 take home bottles of 110 mg, has them through the . Reports last dose was on 04/12 due to not being able to keep anything down. Pt also reports heroin, a few bags IN daily. LA obtained, awaiting return call from [facility].
[2021-04-14] MEDS: Lactated Ringers 1,000 ML 100 ML IVCONT ×2 (11:03→17:10)
--- NOTE | 2021-04-14 11:20 | PC.NURSE ---
pt continues to complain of pain. awaits authorization for methadone. this rn requesting additional nausea meds
--- NOTE | 2021-04-14 11:22 | MHC.RECOVRN ---
Verified 110 mg methadone with Micki at [facility]. Discussed with Karol Barksdale NP, who will order medication.
[2021-04-14] MEDS: Metoclopramide HCl 10 MG/2 ML VIAL 5 MG IVPUSH (11:42)
[2021-04-14 12:00] LABS: Glucose, Whole Blood 108 mg/dL (60-115)
--- NOTE | 2021-04-14 13:29 | PM.EVENT ---
Event Note Date of Service: 04/14/21 Event Note: Patient seen and examined by hospitalist service this morning. Seen again sees still has some abdominal discomfort physical exam: Unchanged H&P. Assessment plan: Anemia normochromic, workup pending, GI evaluation,, PPI, transfuse PRBC, CBC post transfusion. Clear liquid, continue Zofran egd in am npo past midnight
[2021-04-14] MEDS: Gabapentin 400 MG CAPSULE 800 MG PO (14:18)
[2021-04-14] MEDS: methADONE HCl 20 MG/2 ML ORAL.CONC 110 MG PO (14:20)
--- NOTE | 2021-04-14 14:50 | PM.EVENT ---
Event Note Date of Service: 04/14/21 Event Note: Methadone 110mg daily confirmed with [facility]. Patient missed one dose, on 04/13/21. As this was less than 48 hours, okay to resume regular daily dosing. Methaodne 110mg daily, start today, order placed. Provider Dr. Hernandez notified via secure messaging system.
--- NOTE | 2021-04-14 15:41 | PC.NURSE ---
RN to RN james Mccurdy in ED Overflow
[2021-04-14 16:08] LABS: Hemoglobin 7.9 g/dl (14.0-18.0)
[2021-04-14 16:50] LABS: Ferritin 156 ng/mL (20-250)
[2021-04-14 17:07] LABS: Folate 17.1 ng/mL (> or = 4.0); Vitamin B12 457 pg/mL (200-900)
[2021-04-14] MEDS: Pantoprazole Sodium 40 MG/10 ML VIAL IVPUSH (17:08)
--- NOTE | 2021-04-14 20:08 | PC.NURSE ---
Assumed care of pt at 1900. Pt ambulatory to and from bathroom, states he feels better , IVF infusing. Pharmacy contacted for golytely. Pt aware of POC. Awaiting inpatient bed assignment
[2021-04-14] MEDS: PEG 3350/Na Sulf,Bicarb,Cl/KCL 4,000 ML SOLN.RECON 4000 ML PO (21:16)
[2021-04-15] VITALS (13 sets, daily range): BP systolic 110–140; BP diastolic 60–80; PULSE 70–95; RESP 14–20; TEMP 36.2–36.9; O2SAT 94–99; BMI 27.8
--- NOTE | 2021-04-15 01:54 | PC.NURSE ---
Pt w/ first BM since initiation of golytely, dark brown in color but mostly liquid
--- NOTE | 2021-04-15 02:09 | PC.NURSE ---
Report called to inpatient RN. Pt to floor in stable condition w/ all belongings, sent w/ remainder of norily
[2021-04-15] MEDS: ondansetron HCL 4 MG/2 ML VIAL IVPUSH ×4 (02:33→20:45)
[2021-04-15] MEDS: HYDROmorphone HCl 1 MG/ML SYRINGE 0.5 MG IVPUSH (02:33)
[2021-04-15] MEDS: Lactated Ringers 1,000 ML 100 ML IVCONT ×2 (02:33→11:26)
[2021-04-15] MEDS: Pantoprazole Sodium 40 MG/10 ML VIAL IVPUSH ×2 (06:30→17:47)
[2021-04-15 07:26] LABS: MANUAL DIFF FLAG NO
[2021-04-15 07:30] LABS: Basophils Percent Auto 0.4 % (0-2); Eosinophils Absolute Auto 0.1 X10*3/uL (0.0-0.4); Eosinophils Percent Auto 1.3 % (0-4); Hematocrit 21.7 % (42.0-52.0); Hemoglobin 7.2 g/dl (14.0-18.0); Imm Gran Abs Auto 0.16 X10*3/uL (0.00-0.03); Lymphocytes Percent Auto 25.9 % (20-40); Mean Corpuscular HGB Conc 33.2 g/dl (31.0-36.0); Mean Corpuscular Hemoglobin 31.9 pg (27.0-33.0); Mean Platelet Volume 9.1 fL (9.4-12.4); Monocytes Absolute Auto 0.7 X10*3/uL (0.1-1.2); Monocytes Percent Auto 8.5 % (2-11); Neutrophils Absolute Auto 4.9 x10*3/uL (2.0-8.3); Neutrophils Percent Auto 61.9 % (45-73); Platelet Count 215 X10*3/uL (160-400); Red Blood Count 2.26 X10*6/uL (4.60-5.80); Red Cell Distribution Width 15.8 % (11.0-16.0); White Blood Count 7.9 X10*3/uL (4.8-10.8)
[2021-04-15 07:35] LABS: NRBC Pct Auto 1.4 /100WBC (0.0-0.2)
[2021-04-15 07:47] LABS: Anion Gap 10 (12-20); Blood Urea Nitrogen 9 mg/dL (9-16); Calcium 8.4 mg/dL (8.4-10.2); Carbon Dioxide 28 mmol/L (22-29); Chloride 105 mmol/L (96-108); Creatinine Clr Calc Pharmacy 109.1; Estimated Glomerular Filt Rate > 60; Glucose Random 86 mg/dL (60-115); Potassium 3.3 mmol/L (3.3-5.1); Sodium 140 mmol/L (135-145)
--- NOTE | 2021-04-15 07:51 | P.PNIM_ITS ---
Subjective Subjective Date of Service: 04/15/21 Interval History: nauseated , anemia Review of Systems Still has epigastric discomfort and pain, nausea. Unable to tolerate diet yet. Physical Exam Verdana 4l Vital Signs: Verdana 4d Verdana 4d Vital Signs: Verdana 4d Verdana 4Bd Last Vital Signs Verdana 4d Spring Assembler New 4d Spring Assembler New 4d Temp 98.1 F 04/15/21 03:05 Spring Assembler New 4d Pulse 78 04/15/21 03:05 Spring Assembler New 4d Resp 18 04/15/21 03:05 BP 119/62 04/15/21 03:05 Pulse Ox 97 04/15/21 03:05 BMI result Body Mass Index 27.8 Appearance: Alert.? Oriented X3.? not in distress.? Eyes: Pupils equal, round and reactive to light.? Sclera nonicteric.? ENT: Pharynx normal.? Moist mucous membranes. cvs: rrr, [id number] , no murmur res: clear to auscultation ,no rhonchii or wheezing abd: no rebound or guarding, has epigastric discomfort, bs present. ext pulses present , no cyanosis ,Gait well balanced well coordinated. neuro: axo3 , nonfocal. Objective Data Active Medications Acetaminophen (Acetaminophen 325 Mg Tablet) 650 mg PO Q6H PRN PRN Reason: Pain, Mild (Pain Scale 1-3) Amlodipine Besylate (Amlodipine Besylate 10 Mg Tablet) 10 mg PO DAILY [facility]; Protocol Amphetamine/Dextroamphetamine (Dextroamphetamine/Amphetamine Xr 10 Mg Cap.Er.24h) 30 mg PO DAILY [facility] Gabapentin (Gabapentin 400 Mg Capsule) 800 mg PO TID [facility] Last Admin: 04/14/21 23:28 Dose: Not Given Documented by: CAROL Non-Admin Reason: Patient Refused Hydromorphone HCl (Hydromorphone Hcl 1 Mg/Ml Syringe) 0.5 mg IVPUSH Q4H PRN; Protocol PRN Reason: Pain, Severe (Pain Scale 7-10) Last Admin: 04/15/21 02:33 Dose: 0.5 mg Documented by: ADDIE Lactated Ringer's (Lr) 1,000 mls @ 100 mls/hr IVCONT .Q10H [facility] Last Admin: 04/15/21 02:33 Dose: 100 mls/hr Documented by: ADDIE Influenza Virus Vaccine (Flu Vacc [id number](6mos Up)/Pf 0.5 Ml Syringe) 0.5 ml IM .ONCE ONE Stop: 04/15/21 10:01 Methadone HCl (Methadone Hcl 20 Mg/2 Ml Oral.Conc) 110 mg PO DAILY [facility] Last Admin: 04/14/21 14:20 Dose: 110 mg Documented by: MEMO Ondansetron HCl (Ondansetron Hcl 4 Mg/2 Ml Vial) 4 mg IVPUSH Q6H [facility] Last Admin: 04/15/21 02:33 Dose: 4 mg Documented by: ADDIE Pantoprazole Sodium (Pantoprazole Sodium 40 Mg/10 Ml Vial) 40 mg IVPUSH BID @0630,1630 [facility] Last Admin: 04/15/21 06:30 Dose: 40 mg Documented by: ADDIE Sodium Chloride (0.9 % Sodium Chloride Flush 3 Ml Syringe) 3 ml IVFLUSH QSHIFT [facility] Last Admin: 04/15/21 01:24 Dose: Not Given Documented by: CAROL Non-Admin Reason: Med Not Available Labs CBC & Chem 7: 04/15/21 06:48 04/15/21 06:48 Labs: Laboratory Results - last 24 hr 04/14/21 04/14/21 04/14/21 02:45 03:01 11:56 MCV MCH MCHC RDW Plt Count MPV Immature Gran % (Auto) Neut % (Auto) Lymph % (Auto) [place] % (Auto) Eos % (Auto) Baso % (Auto) Lymph # (Auto) [place] # (Auto) Eos # (Auto) Baso # (Auto) Abs Immat Gran (auto) Absolute Neuts (auto) Absolute Nucleated RBC Nucleated RBC % (auto) Smear Path Review SEE NOTE Anion Gap Estim Creat Clear Calc Estimated GFR POC Glucose 108 Random Glucose Calcium Ferritin Vitamin B12 Folate Blood Type A Positive Antibody Screen NEGATIVE Crossmatch See Detail 04/14/21 04/14/21 04/15/21 15:55 15:55 06:48 MCV 96.0 MCH 31.9 MCHC 33.2 RDW 15.8 Plt Count 215 MPV 9.1 L Immature Gran % (Auto) 2.0 H Neut % (Auto) 61.9 Lymph % (Auto) 25.9 [place] % (Auto) 8.5 Eos % (Auto) 1.3 Baso % (Auto) 0.4 Lymph # (Auto) 2.0 [place] # (Auto) 0.7 Eos # (Auto) 0.1 Baso # (Auto) 0.0 Abs Immat Gran (auto) 0.16 H Absolute Neuts (auto) 4.9 Absolute Nucleated RBC 0.110 H Nucleated RBC % (auto) 1.4 H Smear Path Review Anion Gap Estim Creat Clear Calc Estimated GFR POC Glucose Random Glucose Calcium Ferritin 156 Vitamin B12 457 Folate 17.1 Blood Type Antibody Screen Crossmatch 04/15/21 06:48 MCV MCH MCHC RDW Plt Count MPV Immature Gran % (Auto) Neut % (Auto) Lymph % (Auto) [place] % (Auto) Eos % (Auto) Baso % (Auto) Lymph # (Auto) [place] # (Auto) Eos # (Auto) Baso # (Auto) Abs Immat Gran (auto) Absolute Neuts (auto) Absolute Nucleated RBC Nucleated RBC % (auto) Smear Path Review Anion Gap 10 L Estim Creat Clear Calc 109.1 Estimated GFR > 60 POC Glucose Random Glucose 86 Calcium 8.4 Ferritin Vitamin B12 Folate Blood Type Antibody Screen Crossmatch Microbiology Microbiology Results: Microbiology 04/14/21 03:23 Blood Culture - Preliminary Blood - Venous No growth after 24 hours. 04/14/21 03:23 Blood Culture - Preliminary Blood - Venous No growth after 24 hours. Assessment and Plan (1) Gastroenteritis: Status: Acute (2) Acute blood loss anemia: Status: Acute Plan 60-year-old male with past medical history of hypertension presents the hospital with complaints of abdominal pain nausea vomiting as well as dark diarrhea found to have acute anemia 1. acute blood loss anemia due to Gi bleed - guaiac positive,possibly secondary to gastroenteritis transfused 3 units of PRBC h/h maintained in 7 range after prbc 's IV PPI BID, zofran 2. abdominal pain, nausea vomiting, diarrhea - abd CT negative - possibly secondary to gastroenteritis no stool yet available for obtain C diff, as well as stool culture - supportive measure - pain control 3. on methadone - care team consulted as pt will be npo 4. HTN - stable - not on home medications - monitor Quality Stroke Does the patient have a stroke diagnosis?: No VTE Prior VTE?: No VTE Risk Level:: Medical - moderate - high VTE Device Contraindication: N/A - Device Ordered VTE Drug Contraindication: N/A - Med Ordered
[2021-04-15 07:53] LABS: HBS Num1 0.53 mIU/mL (0-7.99); HBc Num1 0.04 S/CO (0.00-0.79); HBsAGNum1 0.17 S/CO (0.00-0.99); Hepatitis A Antibody IgM 0.12 Index (0-0.79); Hepatitis B Core Antibody Nonreactive (Nonreactive); Hepatitis B Surface Antigen Negative (Negative); ~HepC Num1 0.06 S/CO (0.00-0.79); ~Hepatitis A Antibody IgM Nonreactive (Nonreactive); ~Hepatitis B Surface Antibody NONREACTIVE (Nonreactive); ~Hepatitis C Antibody Nonreactive (Nonreactive)
[2021-04-15] MEDS: methADONE HCl 20 MG/2 ML ORAL.CONC 110 MG PO (08:27)
[2021-04-15] MEDS: Dextroamphetamine/Amphetamine XR 10 MG CAP.ER.24H 30 MG PO (08:28)
[2021-04-15] MEDS: Gabapentin 400 MG CAPSULE 800 MG PO ×3 (08:28→20:45)
[2021-04-15] MEDS: amLODIPine Besylate 10 MG TABLET PO (08:28)
[2021-04-15] MEDS: Metoclopramide HCl 10 MG/2 ML VIAL 5 MG IVPUSH (11:26)
--- NOTE | 2021-04-15 13:00 | MHC.SHP ---
Pre-Procedural Eval Section A Date of Service: 04/15/21 The patient is an INPATIENT: Yes The History & Physical has been completed within 30 days and I have reviewed it.: Yes Section B Chief Complaint: acute anemia Allergies: Allergies Allergy/AdvReac Type Severity Reaction Status Date / Time prochlorperazine Allergy Unknown TINGLING Verified 04/14/21 02:01 [From COMPAZINE] Plan I have reviewed the history and physical and performed a pertinent physical examination on my patient. No changes have occurred unless specified.
--- NOTE | 2021-04-15 13:58 | P.CONAN_ITS ---
FORM[facility]LY [facility] Active Problems Active Problems: All Active Problems (Updated 04/14/21 @ 06:59 by Rachael Lopez MD) Abdominal pain (Acute) Nausea vomiting and diarrhea (Acute) Gastroenteritis (Acute) Dehydration (Acute) Acute blood loss anemia (Acute) Past Medical History Medical History (Updated 04/14/21 @ 06:59 by Rachael Lopez MD) Hypertension Family History Family History (Updated 04/14/21 @ 07:00 by Rachael Lopez MD) Other No family history of disorders Family history of problems with anesthesia: No Surgical History Surgical History (Updated 04/14/21 @ 07:00 by Rachael Lopez MD) No pertinent past surgical history History of Problems with Anesthesia: No Social History Social History Household Members: Spouse and Family Housing: House Do you presently have visiting nurse or other home services: No Alcohol intake: never Patient Tobacco Use Status: Current someday Tobacco user Tobacco use type: Cigarette Cigarettes Per Day: 0.5 Substance Use Type: Heroin service: No Current occupational status: unemployed Meds Allergies Allergy/AdvReac Type Severity Reaction Status Date / Time prochlorperazine Allergy Unknown [place]INGL[place] Verified 04/14/21 02:01 [From COMPAZINE] Active Medications: Current Medications Acetaminophen (Acetaminophen 325 Mg Tablet) 650 mg PO Q6H PRN PRN Reason: Pain, Mild (Pain Scale 1-3) Amlodipine Besylate (Amlodipine Besylate 10 Mg Tablet) 10 mg PO DAILY [facility]; Protocol Last Admin: 04/15/21 08:28 Dose: 10 mg Documented by: Amphetamine/Dextroamphetamine (Dextroamphetamine/Amphetamine Xr 10 Mg Cap.Er.24h) 30 mg PO DAILY [facility] Last Admin: 04/15/21 08:28 Dose: 30 mg Documented by: Gabapentin (Gabapentin 400 Mg Capsule) 800 mg PO TID [facility] Last Admin: 04/15/21 08:28 Dose: 800 mg Documented by: Hydromorphone HCl (Hydromorphone Hcl 1 Mg/Ml Syringe) 0.5 mg IVPUSH Q4H PRN; Protocol PRN Reason: Pain, Severe (Pain Scale 7-10) Last Admin: 04/15/21 02:33 Dose: 0.5 mg Documented by: Lactated Ringer's (Lr) 1,000 mls @ 100 mls/hr IVCONT .Q10H [facility] Last Admin: 04/15/21 11:26 Dose: 100 mls/hr Documented by: Methadone HCl (Methadone Hcl 20 Mg/2 Ml Oral.Conc) 110 mg PO DAILY [facility] Last Admin: 04/15/21 08:27 Dose: 110 mg Documented by: Ondansetron HCl (Ondansetron Hcl 4 Mg/2 Ml Vial) 4 mg IVPUSH Q6H [facility] Last Admin: 04/15/21 08:29 Dose: 4 mg Documented by: Pantoprazole Sodium (Pantoprazole Sodium 40 Mg/10 Ml Vial) 40 mg IVPUSH BID@0630,1630 [facility] Last Admin: 04/15/21 06:30 Dose: 40 mg Documented by: Sodium Chloride (0.9 % Sodium Chloride Flush 3 Ml Syringe) 3 ml IVFLUSH QSHIFT [facility] Last Admin: 04/15/21 08:28 Dose: Not Given Documented by: Home Medications Medication Instructions Recorded Confirmed Last Taken Type amlodipine 10 mg 1 tab PO DAILY 04/14/21 04/14/21 Unknown History tablet dextroamphetamine- 1 cap PO DAILY 04/14/21 04/14/21 Unknown History amphetamine ER 30 mg 24hr capsule,extend release gabapentin 800 mg 1 tab PO TID 04/14/21 04/14/21 Unknown History tablet lisinopril 40 mg 40 mg PO DAILY 04/14/21 04/14/21 Unknown History tablet methadone 10 mg/mL 110 mg PO DAILY 04/14/21 04/14/21 Unknown History oral concentrate Exam Exam Date and Time: April 15, 2021 1358 Height,Weight and Vital Signs: Height 6 ft Weight 93.1 kg Last Vital Signs Temp 97.2 F 04/15/21 12:00 Pulse 73 04/15/21 12:00 Resp 20 04/15/21 12:00 BP 136/62 04/15/21 12:00 Pulse Ox 97 04/15/21 12:00 Pertinent Lab Results Pertinent Lab Results: Laboratory Tests 04/14/21 04/14/21 04/14/21 01:48 02:45 02:45 WBC 10.4 RBC 1.35 L Hgb 4.4 L* Hct 13.2 L* MCV 97.8 MCH 32.6 MCHC 33.3 RDW 14.3 Plt Count 195 MPV 8.8 L Immature Gran % (Auto) 2.1 H Neut % (Auto) 73.7 H Lymph % (Auto) 16.5 L [place] % (Auto) 7.3 Eos % (Auto) 0.3 Baso % (Auto) 0.1 Lymph # (Auto) 1.7 [place] # (Auto) 0.8 Eos # (Auto) 0.0 Baso # (Auto) 0.0 Abs Immat Gran (auto) 0.22 H Absolute Neuts (auto) 7.7 Absolute Nucleated RBC 0.070 H Nucleated RBC % (auto) 0.7 H Smear Path Review SEE NOTE Absolute Retic Percent Retic Immature Retic Fraction Retic Hgb Equivalent Sodium 139 Potassium 3.7 Chloride 107 Carbon Dioxide 25 Anion Gap 11 L BUN 12 Creatinine 0.80 Estim Creat Clear Calc 109.1 Estimated GFR > 60 POC Glucose Random Glucose 111 Lactic Acid Calcium 8.2 L Magnesium 2.0 Ferritin Total Bilirubin < 0.2 AST 11 ALT 8 Alkaline Phosphatase 46 Lactate Dehydrogenase 125 Troponin I High Sens B-Natriuretic Peptide Total Protein 5.2 L Albumin 3.5 Lipase 11 Vitamin B12 Folate Urine Color Urine Appearance Urine pH Ur Specific [place] Urine Protein Urine Glucose (UA) Urine Ketones Urine Blood Urine Nitrite Ur Leukocyte Esterase Stool Occult Blood COVID-19 (KEILY) Negative COVID-19 Clin Com See Note Hepatitis A IgM Ab Hep Bs Antigen Hep Bs Antibody Hep B Core Total Ab Hepatitis C Ab (EIA) Blood Type Antibody Screen Crossmatch 04/14/21 04/14/21 04/14/21 02:45 02:45 03:01 WBC RBC Hgb Hct MCV MCH MCHC RDW Plt Count MPV Immature Gran % (Auto) Neut % (Auto) Lymph % (Auto) [place] % (Auto) Eos % (Auto) Baso % (Auto) Lymph # (Auto) [place] # (Auto) Eos # (Auto) Baso # (Auto) Abs Immat Gran (auto) Absolute Neuts (auto) Absolute Nucleated RBC Nucleated RBC % (auto) Smear Path Review Absolute Retic Percent Retic Immature Retic Fraction Retic Hgb Equivalent Sodium Potassium Chloride Carbon Dioxide Anion Gap BUN Creatinine Estim Creat Clear Calc Estimated GFR POC Glucose Random Glucose Lactic Acid 1.2 Calcium Magnesium Ferritin Total Bilirubin AST ALT Alkaline Phosphatase Lactate Dehydrogenase Troponin I High Sens 3.5 B-Natriuretic Peptide 96 Total Protein Albumin Lipase Vitamin B12 Folate Urine Color Urine Appearance Urine pH Ur Specific [place] Urine Protein Urine Glucose (UA) Urine Ketones Urine Blood Urine Nitrite Ur Leukocyte Esterase Stool Occult Blood COVID-19 (KEILY) COVID-19 Clin Com Hepatitis A IgM Ab Hep Bs Antigen Hep Bs Antibody Hep B Core Total Ab Hepatitis C Ab (EIA) Blood Type A Positive Antibody Screen NEGATIVE Crossmatch See Detail 04/14/21 04/14/21 04/14/21 03:01 03:39 03:53 WBC RBC Hgb Hct MCV MCH MCHC RDW Plt Count MPV Immature Gran % (Auto) Neut % (Auto) Lymph % (Auto) [place] % (Auto) Eos % (Auto) Baso % (Auto) Lymph # (Auto) [place] # (Auto) Eos # (Auto) Baso # (Auto) Abs Immat Gran (auto) Absolute Neuts (auto) Absolute Nucleated RBC Nucleated RBC % (auto) Smear Path Review Absolute Retic 0.105 H Percent Retic 7.6 H Immature Retic Fraction 50.5 H Retic Hgb Equivalent 35.8 H Sodium Potassium Chloride Carbon Dioxide Anion Gap BUN Creatinine Estim Creat Clear Calc Estimated GFR POC Glucose Random Glucose Lactic Acid Calcium Magnesium Ferritin Total Bilirubin AST ALT Alkaline Phosphatase Lactate Dehydrogenase Troponin I High Sens B-Natriuretic Peptide Total Protein Albumin Lipase Vitamin B12 Folate Urine Color YELLOW Urine Appearance CLEAR Urine pH 7.5 Ur Specific [place] 1.010 Urine Protein NEG Urine Glucose (UA) NEG Urine Ketones 5 Urine Blood NEG Urine Nitrite NEG Ur Leukocyte Esterase NEG Stool Occult Blood POSITIVE COVID-19 (KEILY) COVID-19 Clin Com Hepatitis A IgM Ab Hep Bs Antigen Hep Bs Antibody Hep B Core Total Ab Hepatitis C Ab (EIA) Blood Type Antibody Screen Crossmatch 04/14/21 04/14/21 04/14/21 11:56 15:55 15:55 WBC RBC Hgb Hct MCV MCH MCHC RDW Plt Count MPV Immature Gran % (Auto) Neut % (Auto) Lymph % (Auto) [place] % (Auto) Eos % (Auto) Baso % (Auto) Lymph # (Auto) [place] # (Auto) Eos # (Auto) Baso # (Auto) Abs Immat Gran (auto) Absolute Neuts (auto) Absolute Nucleated RBC Nucleated RBC % (auto) Smear Path Review Absolute Retic Percent Retic Immature Retic Fraction Retic Hgb Equivalent Sodium Potassium Chloride Carbon Dioxide Anion Gap BUN Creatinine Estim Creat Clear Calc Estimated GFR POC Glucose 108 Random Glucose Lactic Acid Calcium Magnesium Ferritin 156 Total Bilirubin AST ALT Alkaline Phosphatase Lactate Dehydrogenase Troponin I High Sens B-Natriuretic Peptide Total Protein Albumin Lipase Vitamin B12 457 Folate 17.1 Urine Color Urine Appearance Urine pH Ur Specific [place] Urine Protein Urine Glucose (UA) Urine Ketones Urine Blood Urine Nitrite Ur Leukocyte Esterase Stool Occult Blood COVID-19 (KEILY) COVID-19 Clin Com Hepatitis A IgM Ab Hep Bs Antigen Hep Bs Antibody Hep B Core Total Ab Hepatitis C Ab (EIA) Blood Type Antibody Screen Crossmatch 04/14/21 04/14/21 04/15/21 15:55 15:55 06:48 WBC 7.9 RBC 2.26 L D Hgb 7.9 L D 7.2 L Hct 23.0 L D 21.7 L MCV 96.0 MCH 31.9 MCHC 33.2 RDW 15.8 Plt Count 215 MPV 9.1 L Immature Gran % (Auto) 2.0 H Neut % (Auto) 61.9 Lymph % (Auto) 25.9 [place] % (Auto) 8.5 Eos % (Auto) 1.3 Baso % (Auto) 0.4 Lymph # (Auto) 2.0 [place] # (Auto) 0.7 Eos # (Auto) 0.1 Baso # (Auto) 0.0 Abs Immat Gran (auto) 0.16 H Absolute Neuts (auto) 4.9 Absolute Nucleated RBC 0.110 H Nucleated RBC % (auto) 1.4 H Smear Path Review Absolute Retic Percent Retic Immature Retic Fraction Retic Hgb Equivalent Sodium Potassium Chloride Carbon Dioxide Anion Gap BUN Creatinine Estim Creat Clear Calc Estimated GFR POC Glucose Random Glucose Lactic Acid Calcium Magnesium Ferritin Total Bilirubin AST ALT Alkaline Phosphatase Lactate Dehydrogenase Troponin I High Sens B-Natriuretic Peptide Total Protein Albumin Lipase Vitamin B12 Folate Urine Color Urine Appearance Urine pH Ur Specific [place] Urine Protein Urine Glucose (UA) Urine Ketones Urine Blood Urine Nitrite Ur Leukocyte Esterase Stool Occult Blood COVID-19 (KEILY) COVID-19 Clin Com Hepatitis A IgM Ab Nonreactive Hep Bs Antigen Negative Hep Bs Antibody NONREACTIVE Hep B Core Total Ab Nonreactive Hepatitis C Ab (EIA) Nonreactive Blood Type Antibody Screen Crossmatch 04/15/21 06:48 WBC RBC Hgb Hct MCV MCH MCHC RDW Plt Count MPV Immature Gran % (Auto) Neut % (Auto) Lymph % (Auto) [place] % (Auto) Eos % (Auto) Baso % (Auto) Lymph # (Auto) [place] # (Auto) Eos # (Auto) Baso # (Auto) Abs Immat Gran (auto) Absolute Neuts (auto) Absolute Nucleated RBC Nucleated RBC % (auto) Smear Path Review Absolute Retic Percent Retic Immature Retic Fraction Retic Hgb Equivalent Sodium 140 Potassium 3.3 Chloride 105 Carbon Dioxide 28 Anion Gap 10 L BUN 9 Creatinine 0.80 Estim Creat Clear Calc 109.1 Estimated GFR > 60 POC Glucose Random Glucose 86 Lactic Acid Calcium 8.4 Magnesium Ferritin Total Bilirubin AST ALT Alkaline Phosphatase Lactate Dehydrogenase Troponin I High Sens B-Natriuretic Peptide Total Protein Albumin Lipase Vitamin B12 Folate Urine Color Urine Appearance Urine pH Ur Specific [place] Urine Protein Urine Glucose (UA) Urine Ketones Urine Blood Urine Nitrite Ur Leukocyte Esterase Stool Occult Blood COVID-19 (KEILY) COVID-19 Clin Com Hepatitis A IgM Ab Hep Bs Antigen Hep Bs Antibody Hep B Core Total Ab Hepatitis C Ab (EIA) Blood Type Antibody Screen Crossmatch Airway Mallampati Class: II (Missing 2 teeth) TM Dist: >3cm Neck ROM: Full Heart: rrr Lungs: cta Assessment and Plan Assessment Anesthesia Assessment: Anesthesia Plan Discussed and Chart Reviewed Final Anesthetic Review Family History of Problems with Anesthesia: No History of Problems with Anesthesia: No NPO: Yes ASA Class: III Final Preanesthetic Review: No Changes in Pt Med Stat, Meds/Allgs Chart Reviewed and Consent Obtained/Reviewed Patient Risk: Intermediate Procedure Risk: Intermediate Anesthetic Plan Anesthetic Plan: MAC: Disposition: Standard PACU
--- NOTE | 2021-04-15 14:17 | PC.NURSE ---
15min check for blood complted pt to or anesthesia will monitor patient and blood transfusion
--- NOTE | 2021-04-15 14:32 | PM.OP ---
Brief Operative Note Date of Service: 04/15/21 Pre-op diagnosis: acute blood loss anemia Post-op diagnosis: same Procedure: see op note Surgeon: Lin Almanza MD Anesthesia: MAC Was an Financial Reporting Consultant used for this Procedure?: No Estimated blood loss (mL): 0 Condition: stable Disposition: PACU
--- NOTE | 2021-04-15 14:33 | W.PM.OPN ---
Operative Note Operative Note Date of Service: 04/15/21 Narrative: Procedure Description: EGD FLEXIBLE TRANSORAL UPPER GASTROINTESTINAL ENDOSCOPY UPPER ENDOSCOPY Consent: Indications for the procedure and potential complications of bleeding, perforation, reaction to medications and missed diagnosis were discussed with the patient and informed consent was obtained. Instrument: Olympus GIF H 190 J mid size upper endoscope Monitoring: Vital signs and clinical assessment, continuous EKG monitoring, Pulse oximetry, Carbon Dioxide monitoring and blood pressure monitoring were done throughout the procedure. Procedure: The patient was placed in the left lateral decubitis position and pre-procedure medications were administered and a bite block was placed. The endoscope was inserted into the mouth and advanced under direct vision to the third part of duodenum. A careful inspection was made as the upper endoscope was withdrawn including a retroflexed examination of the proximal stomach; Findings and interventions are described below. Findings: Larynx:normal Esophagus: GE junction at 44 cm, diaphragm hiatus at 44 cm, erosive esophagitis LA grade A with schatzki ring noted. Stomach: Patchy gastric erythema with erosions in antrum. Biopsies were obtained. Grade 2 flap valve on retroflexed examination of the cardia. Duodenum: moderate bulbar duodenitis, x 2 ulcers 10-12 mm with surrounding edema and erythema at the duodenal sweep along with an erosion. ulcers were Henrry grade III (low risk of rebleeding <5%) Intervention: Biopsies as noted above for h pylori Impression/Findings: erosive esophagitis erosive gastritis duodenal ulcers schatzki ring PLAN: High dose PPI for 3 months avoid nsaids if h pylori pos treat can eat and can go home tonight or tomorrow o/p colonoscopy and clinic f/u reflux precautions
[2021-04-16] VITALS: BP 123/71; PULSE 68; RESP 16; TEMP 36.8; O2SAT 98
[2021-04-16] MEDS: Lactated Ringers 1,000 ML 100 ML IVCONT (00:50)
[2021-04-16] MEDS: 0.9 % Sodium Chloride Flush 3 ML SYRINGE IVFLUSH ×2 (00:51→06:43)
[2021-04-16] MEDS: ondansetron HCL 4 MG/2 ML VIAL IVPUSH ×2 (03:48→10:26)
[2021-04-16 04:00] VITALS: BP 120/74; PULSE 73; RESP 16; TEMP 37; O2SAT 95
[2021-04-16] MEDS: Pantoprazole Sodium 40 MG/10 ML VIAL IVPUSH (05:38)
[2021-04-16 06:43] LABS: Hematocrit 25.5 % (42.0-52.0); Hemoglobin 8.4 g/dl (14.0-18.0); Mean Corpuscular HGB Conc 32.9 g/dl (31.0-36.0); Mean Corpuscular Hemoglobin 31.9 pg (27.0-33.0); Mean Platelet Volume 9.1 fL (9.4-12.4); NRBC Pct Auto 0.5 /100WBC (0.0-0.2); Platelet Count 219 X10*3/uL (160-400); Red Blood Count 2.63 X10*6/uL (4.60-5.80); Red Cell Distribution Width 16.9 % (11.0-16.0); White Blood Count 6.5 X10*3/uL (4.8-10.8)
--- NOTE | 2021-04-16 06:56 | HO.POSTANES ---
Post Anesthesia Evaluation Post Anesthesia Evaluation Vital Signs: Vital Signs Temp Pulse Resp BP Pulse Ox 04/16/21 04:00 98.6 F 73 16 120/74 95 04/16/21 00:00 98.2 F 68 16 123/71 98 04/15/21 19:23 98.5 F 76 18 115/74 99 Anesthesia: Monitored Mental Status: Awake Pain Control: Satisfactory Nausea/Vomiting: None Hydration: Adequate Anesthesia-Related Issues: No Anes. Related Issues
[2021-04-16 07:55] VITALS: BP 119/70; PULSE 76; RESP 20; TEMP 36.9; O2SAT 97
--- NOTE | 2021-04-16 07:55 | P.DS_ITS ---
DS: Providers Provider Date of Service: 04/16/21 Date of admission: 04/14/21 06:53 Primary care physician: Unknown Physician Consults: 04/14/21 06:52 Consult to Gastroenterology Routine Consulting Provider: Dae Alvarez Reason for consultation: GI bleed Has provider been notified: No 04/14/21 06:58 Consult to Care Team Routine Comment: Reason for consultation: methadone- pt needs to be npo due to gi bleed DS: Diagnosis Discharge Diagnosis (1) Gastroenteritis: Status: Acute (2) Acute blood loss anemia: Status: Acute DS: Summary Hospital Course Hospital Course: 60-year-old male with past medical history of hypertension presents the hospital with complaints of abdominal pain nausea vomiting as well as dark diarrhea found to have acute anemia. Hospital course: patient came to the hospital because of acute blood loss anemia secondary to GI bleed -received for 4 units of blood transfusion- his hemoglobin is stable now around 8. Patient was also seen by GI- EGD was done: found to have duodenal ulcer as well as gastritis possible reason for his anemia, also biopsies sent. Patient is to follow up outpatient with GI as well as PCP and monitor CBC out patiently ,patient will go home on PPI , advised reflux precautions. Above management discussed with the patient in detail length he understand and in agreement with the above plan, time spent 50 minutes and 50% time spent on counseling. Significant findings: As above. Procedures performed: None. Treatment and response: As above. Complications: None. Time Spent with Patient Time attestation: Total time spent providing and/or coordinating discharge services: Discharge coordination time: Greater than 30 minutes Quality: Stroke Does the patient have a stroke diagnosis?: No Physical Exam Verdana 4l Vital Signs: Verdana 4d Verdana 4d Vital Signs: Verdana 4d Verdana 4Bd Last Vital Signs Verdana 4d Jewelry Bench Worker New 4d Jewelry Bench Worker New 4d Temp 98.6 F 04/16/21 04:00 Jewelry Bench Worker New 4d Pulse 73 04/16/21 04:00 Jewelry Bench Worker New 4d Resp 16 04/16/21 04:00 BP 120/74 04/16/21 04:00 Pulse Ox 95 04/16/21 04:00 BMI result Body Mass Index 27.8 Physical exam: Appearance: Alert.? Oriented X3.? not in distress.? Eyes: Pupils equal, round and reactive to light.? Sclera nonicteric.? ENT: Pharynx normal.? Moist mucous membranes. cvs: rrr, [id number] , no murmur res: clear to auscultation ,no rhonchii or wheezing abd: no rebound or guarding ,nt, bs present. ext pulses present , no cyanosis ,Gait well balanced well coordinated. neuro: axo3 , nonfocal. DS: Data Data Completed and Pending Pending studies at discharge: Pending at discharge 04/15/21 14:54 Surgical [PTH] Routine Labs on day of discharge: Laboratory Results - last 24 hr 04/14/21 04/14/21 04/16/21 03:01 15:55 05:39 WBC 6.5 RBC 2.63 L Hgb 8.4 L Hct 25.5 L MCV 97.0 MCH 31.9 MCHC 32.9 RDW 16.9 H Plt Count 219 MPV 9.1 L Absolute Nucleated RBC 0.030 H Nucleated RBC % (auto) 0.5 H Hepatitis A IgM Ab Nonreactive Hep Bs Antigen Negative Hep Bs Antibody NONREACTIVE Hep B Core Total Ab Nonreactive Hepatitis C Ab (EIA) Nonreactive Blood Type A Positive Antibody Screen NEGATIVE Crossmatch See Detail Preliminary micro results at discharge 04/14/21 03:23 Blood Culture - Preliminary Blood - Venous No growth after 48 hours. 04/14/21 03:23 Blood Culture - Preliminary Blood - Venous No growth after 48 hours. Additional Comments Additional comments: ?CT/CT chest wo con IMPRESSION: ? 1. Mild emphysema in the lungs. No consolidation. 2. No evidence of active GI bleed. Colonic diverticulosis without diverticulitis.? ? Fleischner guidelines were followed. Discharge Plan Discharge Patient Disposition: Home, Self-Care Discharge Diagnosis: acute blood loss anemia secondary to GI bleed, duodenal ulcers Referrals: Lin Almanza MD [Physician] - 1 Week (follow up in outpatiently) Physician,Unknown J [Primary Care Provider] - 1 Week Discharge Medications: New omeprazole 40 mg Capsule,Delayed Release(Dr/Ec) 40 mg PO BID@0630,1630 Qty: 61 0RF ondansetron HCl 4 mg tablet 4 mg PO Q8H Qty: 10 0RF Continued gabapentin 800 mg tablet 1 tab PO TID 0RF amlodipine 10 mg tablet 1 tab PO DAILY 0RF dextroamphetamine-amphetamine 30 mg capsule,extended release 24hr 1 cap PO DAILY 0RF lisinopril 40 mg tablet 40 mg PO DAILY 0RF methadone 10 mg/mL Concentrate 110 mg PO DAILY 0RF Discharge Orders: Discharge Order (Routine); Ordered 04/16/21 Ordered By: Venkatesh Hernandez Diet: advance to usual diet Activity on Discharge: As tolerated Stand Alone Forms: Patient Portal Discharge page Care Plan Goals: patient came to the hospital because of acute blood loss anemia secondary to GI bleed -received for 4 units of blood transfusion- his hemoglobin is stable now around 8. Patient was also seen by GI- EGD was done: found to have duodenal ulcer as well as gastritis possible reason for his anemia, also biopsies sent. Patient is to follow up outpatient with GI as well as PCP and monitor CBC out patiently in 1week ,patient will go home on PPI , advised reflux precautions. Follow up with Dr Almanza GI outpatiently Health Concerns: As above. Plan of Treatment: As above. Assessment: As above. Patient Instructions: Peptic Ulcer (GEN), Gastroesophageal Reflux Disease (GEN)
[2021-04-16] MEDS: methADONE HCl 20 MG/2 ML ORAL.CONC 110 MG PO (10:25)
[2021-04-16] MEDS: Dextroamphetamine/Amphetamine XR 10 MG CAP.ER.24H 30 MG PO (10:26)
[2021-04-16] MEDS: Gabapentin 400 MG CAPSULE 800 MG PO (10:26)
[2021-04-16] MEDS: amLODIPine Besylate 10 MG TABLET PO (10:26)
--- NOTE | 2021-04-16 11:27 | P.PNIM_ITS ---
Subjective Subjective Date of Service: 04/16/21 Interval History: DU Review of Systems still has abd pain , nausea Physical Exam Verdana 4l Vital Signs: Verdana 4d Verdana 4d Vital Signs: Verdana 4d Verdana 4Bd Last Vital Signs Verdana 4d Night Worker New 4d Night Worker New 4d Temp 98.5 F 04/16/21 07:55 Night Worker New 4d Pulse 76 04/16/21 07:55 Night Worker New 4d Resp 20 04/16/21 07:55 BP 119/70 04/16/21 07:55 Pulse Ox 97 04/16/21 07:55 BMI result Body Mass Index 27.8 ?Appearance: Alert.? Oriented X3.? not in distress.? Eyes: Pupils equal, round and reactive to light.? Sclera nonicteric.? ENT: Pharynx normal.? Moist mucous membranes. cvs: rrr, [id number] , no murmur res: clear to auscultation ,no rhonchii or wheezing abd: no rebound or guarding, has epigastric discomfort, bs present. ext pulses present , no cyanosis ,Gait well balanced well coordinated. neuro: axo3 , nonfocal. Objective Data Active Medications Acetaminophen (Acetaminophen 325 Mg Tablet) 650 mg PO Q6H PRN PRN Reason: Pain, Mild (Pain Scale 1-3) Amlodipine Besylate (Amlodipine Besylate 10 Mg Tablet) 10 mg PO DAILY [facility]; Protocol Last Admin: 04/16/21 10:26 Dose: 10 mg Documented by: VARINDER Amphetamine/Dextroamphetamine (Dextroamphetamine/Amphetamine Xr 10 Mg Cap.Er.24h) 30 mg PO DAILY [facility] Last Admin: 04/16/21 10:26 Dose: 30 mg Documented by: VARINDER Gabapentin (Gabapentin 400 Mg Capsule) 800 mg PO TID [facility] Last Admin: 04/16/21 10:26 Dose: 800 mg Documented by: VARINDER Hydromorphone HCl (Hydromorphone Hcl 1 Mg/Ml Syringe) 0.5 mg IVPUSH Q4H PRN; Protocol PRN Reason: Pain, Severe (Pain Scale 7-10) Last Admin: 04/15/21 02:33 Dose: 0.5 mg Documented by: ADDIE Lactated Ringer's (Lr) 1,000 mls @ 100 mls/hr IVCONT .Q10H [facility] Last Infusion: 04/16/21 11:00 Dose: 0 mls/hr Documented by: VARINDER Methadone HCl (Methadone Hcl 20 Mg/2 Ml Oral.Conc) 110 mg PO DAILY [facility] Last Admin: 04/16/21 10:25 Dose: 110 mg Documented by: VARINDER Omeprazole (Omeprazole 40 Mg Capsule.Dr) 40 mg PO BID@0630,1630 [facility] Last Admin: 04/16/21 09:02 Dose: Not Given Documented by: VARINDER Non-Admin Reason: Previously Administered Ondansetron HCl (Ondansetron Hcl 4 Mg/2 Ml Vial) 4 mg IVPUSH Q6H [facility] Last Admin: 04/16/21 10:26 Dose: 4 mg Documented by: VARINDER Sodium Chloride (0.9 % Sodium Chloride Flush 3 Ml Syringe) 3 ml IVFLUSH QSHIFT [facility] Last Admin: 04/16/21 06:43 Dose: 3 ml Documented by: KELLY Labs CBC & Chem 7: 04/16/21 05:39 04/15/21 06:48 Labs: Laboratory Results - last 24 hr 04/14/21 04/16/21 03:01 05:39 MCV 97.0 MCH 31.9 MCHC 32.9 RDW 16.9 H Plt Count 219 MPV 9.1 L Absolute Nucleated RBC 0.030 H Nucleated RBC % (auto) 0.5 H Blood Type A Positive Antibody Screen NEGATIVE Crossmatch See Detail Microbiology Microbiology Results: Microbiology 04/14/21 03:23 Blood Culture - Preliminary Blood - Venous No growth after 48 hours. 04/14/21 03:23 Blood Culture - Preliminary Blood - Venous No growth after 48 hours. Assessment and Plan Plan Dudenal ulcer:patient came to the hospital because of acute blood loss anemia secondary to GI bleed -received for 4 units of blood transfusion- his hemoglobin is stable now around 8. Patient was also seen by GI- EGD was done: found to have duodenal ulcer as well as gastritis possible reason for his anemia, also biopsies sent. Patient is to follow up outpatient with GI as well as PCP and monitor CBC out patiently ,patient will go home on PPI , advised reflux precautions. Above management discussed with the patient in detail length he understand and in agreement with the above plan, time spent 50 minutes and 50% time spent on counseling Quality Stroke Does the patient have a stroke diagnosis?: No VTE Prior VTE?: No VTE Risk Level:: Medical - moderate - high VTE Device Contraindication: N/A - Device Ordered VTE Drug Contraindication: N/A - Med Ordered
[2021-04-16 12:00] VITALS: BP 122/67; PULSE 81; RESP 20; TEMP 36.6; O2SAT 97
[2021-04-16 14:16] LABS: Haptoglobin 110 mg/dL (43-212)
== END 2021-04-16 15:27 | disposition home or self-care (01) | DRG 377 ==
LOC: HO.ED 05:50 → HO.EDOVER 07:01 → HO.S3 04-15 01:53
PROVIDERS: Internal Medicine Gastroenterology; Admitting Provider Internal Medicine; Emergency Provider Student in an Organized Health Care Education/Training Program; Visit Provider Internal Medicine
PROC: 0DB78ZX Excision of Stomach, Pylorus, Via Natural or Artificial Opening Endoscopic, Diagnostic (ICD-10-PCS; principal; 2021-04-15 14:10)
DX: K26.4 Chronic or unspecified duodenal ulcer with hemorrhage (principal); K20.91 Esophagitis, unspecified with bleeding; D62 Acute posthemorrhagic anemia; F11.20 Opioid dependence, uncomplicated; K29.71 Gastritis, unspecified, with bleeding; E86.0 Dehydration; K22.2 Esophageal obstruction; I10 Essential (primary) hypertension; F17.210 Nicotine dependence, cigarettes, uncomplicated; Z71.6 Tobacco abuse counseling; Z20.822 Contact with and (suspected) exposure to COVID-19; Z79.899 Other long term (current) drug therapy
CPT/HCPCS: 36415; 36430; 71250; 74178; 80048; 80053; 81003; 82272; 82607; 82728; 82746; 82947; 83010; 83605; 83615; 83690; 83735; 83880; 84484; 85014; 85018; 85025; 85027; 85045; 86704; 86706; 86709; 86803; 86850; 86900; 86901; 86923; 87040; 87340; 87635; 88305; 88342; 96361; 96374; 96375; 96376; 99285; J1170; J2405; J2765; P9016; Q9967

== ENCOUNTER 2021-04-17 17:20 | Emergency (ER) | payer MEDICARE, MEDICAID, SELFPAY ==
[2021-04-17 18:37] VITALS: BP 131/80; PULSE 79; RESP 16; TEMP 36.8; O2SAT 98; BMI 27.1
--- NOTE | 2021-04-17 21:05 | ED_ITS ---
HPI - GI Bleed General Chief complaint: GI Bleed Stated complaint: dc 04/16 c/o of dizziness, black stools Time Seen by Provider: 04/17/21 21:01 Source: patient and old records reviewed Mode of arrival: ambulatory Limitations: no limitations History of Present Illness HPI Narrative: 60 yo male just DC yesterday for erosive esophagitis, duodenal ulcer found on EGD started on high dose PPI dc after receiving 4 UPRBCs states he went home felt weak and dizzy had bout of melena again today, also felt a migraine today so he took excedrin two tabs. He didn't realize he couldn't take aspirin. He is taking all of his medications as prescribed. MD complaint: melena Onset (ago): day(s) (1) Pain Consistency: constant Severity: moderate Relieving factors: rest Exacerbating factors: movement Context: history of GI bleed Associated symptoms: nausea, loss of appetite, malaise and other bleeding Treatments Prior to Arrival: none Related Data Home Medications Medication Instructions Recorded Confirmed amlodipine 10 mg tablet 1 tab PO DAILY 04/14/21 04/14/21 dextroamphetamine-amphetamine ER 1 cap PO DAILY 04/14/21 04/14/21 30 mg 24hr capsule,extend release gabapentin 800 mg tablet 1 tab PO TID 04/14/21 04/14/21 lisinopril 40 mg tablet 40 mg PO DAILY 04/14/21 04/14/21 methadone 10 mg/mL oral concentrate 110 mg PO DAILY 04/14/21 04/14/21 Previous Rx's Medication Instructions Recorded omeprazole 40 mg capsule,delayed 40 mg PO BID@0630,1630 #61 cap 04/16/21 release ondansetron HCl 4 mg tablet 4 mg PO Q8H #10 tab 04/16/21 Allergies Allergy/AdvReac Type Severity Reaction Status Date / Time prochlorperazine Allergy Unknown TINGLING Verified 04/14/21 02:01 [From COMPAZINE] Review of Systems Verdana 4l Review of Systems: Verdana 4d Verdana 4d Constitutional : No Weight loss, No Fever, No Chills ENT/Mouth : No sore throat, No Rhinorrhea Eyes: No Swelling, No Redness Cardiovascular : No Chest Pain, No SOB, NoEdema Respiratory : No Cough, No Sputum, No Wheezing Gastrointestinal :: Positive Nausea, no Vomiting, no Diarrhea, positive abdominal Pain, No Hematochezia, pos Melena Genitourinary : No Dysuria, No Urinary Frequency, No Hematuria, No Urgency Musculoskeletal : No joint pain, No Myalgias, No Joint Swelling Skin : No Skin Lesions, No rash Neuro : pos Weakness, No Numbness, pos Dizziness, No Headache Psych : No Anxiety/Panic, No Depression Heme/Lymph: No Bruising, No Lymphadenopathy Endocrine : No Polyuria, No Polydipsia All other systems reviewed and are negative. [facility] Past Medical History Attestation statement: The following information was validated with the patient. Medical History Acute blood loss anemia Duodenal ulcer Hypertension Surgical History No pertinent past surgical history Family History Family History (Updated 04/14/21 @ 07:00 by Rachael Lopez MD) Other No family history of disorders Social History Social History Household Members: Spouse and Family Housing: House Do you presently have visiting nurse or other home services: No Alcohol intake: never Patient Tobacco Use Status: Current someday Tobacco user Tobacco use type: Cigarette Cigarettes Per Day: 0.5 Substance Use Type: Heroin Advance Directives: No Advance Directives Information Provided: Yes service: No Current occupational status: unemployed Physical Exam Verdana 4l Vital Signs: Verdana 4d Verdana 4d Vital Signs: Verdana 4d Verdana 4Bd Last Vital Signs Verdana 4d Credentialing Specialist New 4d Credentialing Specialist New 4d Temp 97.9 F 04/17/21 21:20 Credentialing Specialist New 4d Pulse 88 04/17/21 21:57 Credentialing Specialist New 4d Resp 16 04/17/21 21:20 BP 139/80 04/17/21 21:57 Pulse Ox 100 04/17/21 21:20 BMI result Body Mass Index 27.1 Appearance: Alert. Oriented X3. No acute distress. Eyes: Pupils equal, round and reactive to light. ENT: Pharynx normal. Neck: Normal inspection. Neck supple. CVS: Normal heart rate and rhythm. Pulses normal. Respiratory: No respiratory distress. Breath sounds normal. Abdomen: Soft and mild lower abdominal ttp Rectal: light brown/mixed with darker stool Skin: Skin warm and dry. Normal skin color. Normal skin turgor. Extremities: No lower extremity edema. No calf ttp Neuro: Oriented X 3. No motor deficit. No sensory deficit. Course Course Course Narrative: orthostatics VS supine: 123/76 70 sittin/81 78 standin/80 88 - dizzy negative orthostatics hemoglobin negative from baseline repeat CBC ordered for 130, IV protonix ordered given his aspirin use hemoglobin 8.8 the patient feels fine and wants to go home now he states he was just anxious at this time he wants to go home, refuses to stay for repeat H/H aware we wanted to trend alert and oriented x 3 MDM - GI Bleed MDM Narrative Medical decision making narrative: 60 yo male with recent hx of acute blood loss anemia resulting in need for 4 units of blood and EGD with findings of erosive esophagitis, duodenal ulcer now on 40mg BID of omeprazole comes in with c/o weak and dizzy saw melena at home today x 1 - currently H/H stable will repeat in 4 hours, VS stable - orthostatics ordered. Unfortunately he went home and took 2 doses of excedrin for headache he was not aware he could not take aspirin. At this time dispo per repeat CBC, orthostatic VS. Lab Data Result diagrams: 04/17/21 21:29 04/17/21 21:29 Labs: Lab Results 04/17/21 04/17/21 04/17/21 Range/Units 21:25 21:29 21:29 WBC 6.7 (4.8-10.8) X10*3/uL RBC 2.75 L (4.60-5.80) X10*6/uL Hgb 8.8 L (14.0-18.0) g/dl Hct 27.0 L (42.0-52.0) % MCV 98.2 H (80.0-98.0) fL MCH 32.0 (27.0-33.0) pg MCHC 32.6 (31.0-36.0) g/dl RDW 17.4 H (11.0-16.0) % Plt Count 248 (160-400) X10*3/uL MPV 9.0 L (9.4-12.4) fL Immature Gran % (Auto) 0.8 H (0.0-0.4) % Neut % (Auto) 61.3 (45-73) % Lymph % (Auto) 25.8 (20-40) % Hitchcock % (Auto) 10.4 (2-11) % Eos % (Auto) 1.4 (0-4) % Baso % (Auto) 0.3 (0-2) % Lymph # (Auto) 1.7 (1.2-4.9) X10*3/uL Hitchcock # (Auto) 0.7 (0.1-1.2) X10*3/uL Eos # (Auto) 0.1 (0.0-0.4) X10*3/uL Baso # (Auto) 0.0 (0.0-0.2) X10*3/uL Abs Immat Gran (auto) 0.05 H (0.00-0.03) X10*3/uL Absolute Neuts (auto) 4.1 (2.0-8.3) x10*3/uL Absolute Nucleated RBC 0.000 (0.0-0.012) X10*3/uL Nucleated RBC % (auto) 0.0 (0.0-0.2) /100WBC PT 12.3 (9.9-13.0) SEC INR 1.1 (0.9-1.1) Sodium (135-145) mmol/L Potassium (3.3-5.1) mmol/L Chloride (96-108) mmol/L Carbon Dioxide (22-29) mmol/L Anion Gap (12-20) BUN (9-16) mg/dL Creatinine (0.5-1.4) mg/dL Estim Creat Clear Calc Estimated GFR Random Glucose (60-115) mg/dL Calcium (8.4-10.2) mg/dL Magnesium (1.6-2.6) mg/dL Total Bilirubin (0.0-1.0) mg/dL Direct Bilirubin (0.0-0.5) mg/dL AST (5-37) U/L ALT (0-40) U/L Alkaline Phosphatase (39-117) U/L Troponin I High Sens (<3.5-35.0) ng/L Total Protein (6.5-8.0) g/dL Albumin (3.5-5.0) g/dL Stool Occult Blood (NEGATIVE) COVID-19 (KEILY) Negative (Negative) COVID-19 Clin Com See Note 04/17/21 04/17/21 04/17/21 Range/Units 21:29 21:29 21:31 WBC (4.8-10.8) X10*3/uL RBC (4.60-5.80) X10*6/uL Hgb (14.0-18.0) g/dl Hct (42.0-52.0) % MCV (80.0-98.0) fL MCH (27.0-33.0) pg MCHC (31.0-36.0) g/dl RDW (11.0-16.0) % Plt Count (160-400) X10*3/uL MPV (9.4-12.4) fL Immature Gran % (Auto) (0.0-0.4) % Neut % (Auto) (45-73) % Lymph % (Auto) (20-40) % Hitchcock % (Auto) (2-11) % Eos % (Auto) (0-4) % Baso % (Auto) (0-2) % Lymph # (Auto) (1.2-4.9) X10*3/uL [place]cock # (Auto) (0.1-1.2) X10*3/uL Eos # (Auto) (0.0-0.4) X10*3/uL Baso # (Auto) (0.0-0.2) X10*3/uL Abs Immat Gran (auto) (0.00-0.03) X10*3/uL Absolute Neuts (auto) (2.0-8.3) x10*3/uL Absolute Nucleated RBC (0.0-0.012) X10*3/uL Nucleated RBC % (auto) (0.0-0.2) /100WBC PT (9.9-13.0) SEC INR (0.9-1.1) Sodium 141 (135-145) mmol/L Potassium 4.5 D (3.3-5.1) mmol/L Chloride 106 (96-108) mmol/L Carbon Dioxide 28 (22-29) mmol/L Anion Gap 12 (12-20) BUN 15 D (9-16) mg/dL Creatinine 1.18 (0.5-1.4) mg/dL Estim Creat Clear Calc 73.9 Estimated GFR > 60 Random Glucose 103 (60-115) mg/dL Calcium 8.7 (8.4-10.2) mg/dL Magnesium 2.4 (1.6-2.6) mg/dL Total Bilirubin 0.2 (0.0-1.0) mg/dL Direct Bilirubin < 0.2 (0.0-0.5) mg/dL AST 16 D (5-37) U/L ALT 9 (0-40) U/L Alkaline Phosphatase 63 D (39-117) U/L Troponin I High Sens < 3.5 (<3.5-35.0) ng/L Total Protein 5.7 L (6.5-8.0) g/dL Albumin 3.6 (3.5-5.0) g/dL Stool Occult Blood POSITIVE (NEGATIVE) COVID-19 (KEILY) (Negative) COVID-19 Clin Com ECG Data Attestation: I personally reviewed and interpreted this ECG as follows: ECG interpretation date: 04/17/21 ECG interpretation time: 22:10 Interpretation: Rate: 68 Rhythm: NSR [place]: normal Normal P waves. Normal LESTER. Normal QRS complex. ST T wave : normal no TRITSON qTC: normal prior studies: no acute ischemia The study has been interpreted contemporaneously by me. . Discharge Plan Discharge Clinical Impression: Melena, Duodenal ulcer Patient Disposition: Home, Self-Care Instructions: Peptic Ulcer (ED), Melena (ED) Additional Instructions: return to ED for any worsening symptoms or concerns avoid any over the counter pain medications other than tylenol - limit to 3 grams a day of tylenol follow up with your outside doctors as planned monitor your symptoms, we wanted to trend your labs in the emergency department but you refused. Prescriptions: No Action gabapentin 800 mg tablet 1 tab PO TID 0RF amlodipine 10 mg tablet 1 tab PO DAILY 0RF dextroamphetamine-amphetamine 30 mg capsule,extended release 24hr 1 cap PO DAILY 0RF lisinopril 40 mg tablet 40 mg PO DAILY 0RF methadone 10 mg/mL Concentrate 110 mg PO DAILY 0RF omeprazole 40 mg Capsule,Delayed Release(Dr/Ec) 40 mg PO BID@0630,1630 Qty: 61 0RF ondansetron HCl 4 mg tablet 4 mg PO Q8H Qty: 10 0RF
--- NOTE | 2021-04-17 21:05 | ECG_ITS ---
Test Reason : DIZZY Blood Pressure : / mmHG Vent. Rate : 068 BPM Atrial Rate : 068 BPM P-R Int : 186 ms QRS Dur : 094 ms QT Int : 430 ms P-R-T Axes : 013 049 050 degrees QTc Int : 457 ms Normal sinus rhythm Normal ECG No previous ECGs available Referred By: Shaniqua Barker Electronically Signed By:PRICILLA DONALD MD
[2021-04-17 21:20] VITALS: BP 125/73; PULSE 72; RESP 16; TEMP 36.6; O2SAT 100
[2021-04-17 21:36] LABS: MANUAL DIFF FLAG NO
[2021-04-17 21:39] LABS: Basophils Percent Auto 0.3 % (0-2); Eosinophils Absolute Auto 0.1 X10*3/uL (0.0-0.4); Eosinophils Percent Auto 1.4 % (0-4); Hemoglobin 8.8 g/dl (14.0-18.0); Imm Gran Abs Auto 0.05 X10*3/uL (0.00-0.03); Imm Gran Pct Auto 0.8 % (0.0-0.4); Lymphocytes Absolute Auto 1.7 X10*3/uL (1.2-4.9); Lymphocytes Percent Auto 25.8 % (20-40); Mean Corpuscular HGB Conc 32.6 g/dl (31.0-36.0); Mean Corpuscular Volume 98.2 fL (80.0-98.0); Monocytes Absolute Auto 0.7 X10*3/uL (0.1-1.2); Monocytes Percent Auto 10.4 % (2-11); Neutrophils Absolute Auto 4.1 x10*3/uL (2.0-8.3); Neutrophils Percent Auto 61.3 % (45-73); Platelet Count 248 X10*3/uL (160-400); Red Blood Count 2.75 X10*6/uL (4.60-5.80); Red Cell Distribution Width 17.4 % (11.0-16.0); White Blood Count 6.7 X10*3/uL (4.8-10.8)
[2021-04-17 21:44] LABS: INTERNATIONAL NORM RATIO 1.1 (0.9-1.1); Prothrombin Time 12.3 SEC (9.9-13.0)
[2021-04-17 21:48] LABS: OBS Int Ctl Valid YES; OBS1 POSITIVE (NEGATIVE)
[2021-04-17 21:54] VITALS: BP 123/76; PULSE 70
[2021-04-17 21:56] VITALS: BP 123/81; PULSE 78
[2021-04-17 21:57] VITALS: BP 139/80; PULSE 88
[2021-04-17 22:01] LABS: Troponin-I High Sensitivity < 3.5 ng/L (<3.5-35.0)
[2021-04-17 22:02] LABS: COVID-19 Test Negative (Negative)
[2021-04-17 22:05] LABS: Alanine Aminotransferase 9 U/L (0-40); Albumin Level 3.6 g/dL (3.5-5.0); Alkaline Phosphatase 63 U/L (39-117); Anion Gap 12 (12-20); Aspartate Amino Transferase 16 U/L (5-37); Bilirubin Direct < 0.2 mg/dL (0.0-0.5); Bilirubin Total 0.2 mg/dL (0.0-1.0); Blood Urea Nitrogen 15 mg/dL (9-16); Calcium 8.7 mg/dL (8.4-10.2); Carbon Dioxide 28 mmol/L (22-29); Chloride 106 mmol/L (96-108); Creatinine Clr Calc Pharmacy 73.9; Estimated Glomerular Filt Rate > 60; Glucose Random 103 mg/dL (60-115); Magnesium 2.4 mg/dL (1.6-2.6); Potassium 4.5 mmol/L (3.3-5.1); Sodium 141 mmol/L (135-145); Total Protein 5.7 g/dL (6.5-8.0)
[2021-04-17] MEDS: Pantoprazole Sodium 40 MG/10 ML VIAL IVPUSH (22:25)
[2021-04-17] MEDS: 0.9 % Sodium Chloride 500 ML IV (22:28)
[2021-04-17 23:38] VITALS: BP 122/76; PULSE 70; RESP 16; TEMP 36.9; O2SAT 98
== END 2021-04-17 23:43 | disposition home or self-care (01) ==
PROVIDERS: Emergency Provider Emergency Medicine
DX: K92.1 Melena (principal); K26.4 Chronic or unspecified duodenal ulcer with hemorrhage; F17.210 Nicotine dependence, cigarettes, uncomplicated; Z20.822 Contact with and (suspected) exposure to COVID-19; Z71.6 Tobacco abuse counseling; Z79.899 Other long term (current) drug therapy
CPT/HCPCS: 80048; 80076; 82272; 83735; 84484; 85025; 85610; 87635; 93005; 96361; 96374; 99284

== ENCOUNTER 2021-05-06 10:11 | Day surgery (SDC) | payer MEDICARE, MEDICAID, SELFPAY ==
[2021-04-30 10:48] VITALS: BMI 27.9
--- NOTE | 2021-05-05 12:15 | P.CONAN_ITS ---
Documented by User: Aretha Lin NP 05/05/21 12:17 HPI - Anesthesia Eval Consult details Narrative: 60yo M for Colonoscopy s/p EGD and [place] 03/2021 with MAC PMF Active Problems Active Problems: All Active Problems (Updated 04/30/21 @ 10:47 by Radha Redding, RN) Gastroenteritis (Acute) Dehydration (Acute) Nausea vomiting and diarrhea (Acute) Abdominal pain (Acute) Past Medical History Medical History (Updated 04/30/21 @ 10:47 by Radha Redding, RN) Acute blood loss anemia Degenerative disc disease, cervical Duodenal ulcer History of blood transfusion Hypertension Neck pain Osteoarthritis Family History Family History (Updated 04/14/21 @ 07:00 by Rachael Lopez MD) Other No family history of disorders Family history of problems with anesthesia: No Surgical History Surgical History (Updated 04/30/21 @ 10:45 by Radha Redding RN) History of esophagogastroduodenoscopy (EGD) Hx of arthroscopic knee surgery Hx of cervical discectomy Hx of hand surgery History of Problems with Anesthesia: No Social History Social History (Updated 04/30/21 @ 10:51 by Radha Redding RN) Household Members: Spouse and Family Housing: House Are you a primary patient care specialist to a significant other at home: No Do you presently have visiting nurse or other home services: No Alcohol intake: never Patient Tobacco Use Status: Current everyday Tobacco user Tobacco use type: Cigarette Cigarettes Per Day: 3 Smoked in Last 30 Days: Yes Use of substances other than those prescribed or required for medical reasons: Yes Substance Use Type: Heroin and Marijuana Substance Use Frequency: Occasionally Last Used Substance Other:: denies Heroin use, marijuana occasionally for pain Have you been hit, kicked, punched, or otherwise hurt by someone within the past year? If so, by whom?: No Are you DNR?: No Advance Directives: No Advance Directives Information Provided: Yes Advance Directives on File: No Recently lost weight without trying: No Poor oral hygiene: No service: No Current occupational status: unemployed Meds Allergies Allergy/AdvReac Type Severity Reaction Status Date / Time prochlorperazine Allergy Unknown TINGLING Verified 04/30/21 10:47 [From COMPAZINE] Home Medications Medication Instructions Recorded Confirmed Last Taken Type amlodipine 10 mg tablet 1 tab PO DAILY 04/14/21 04/30/21 Unknown History dextroamphetamine-amphetamine ER 1 cap PO DAILY 04/14/21 04/30/21 Unknown History 30 mg 24hr capsule,extend release gabapentin 800 mg tablet 1 tab PO TID 04/14/21 04/30/21 Unknown History lisinopril 40 mg tablet 40 mg PO DAILY 04/14/21 04/30/21 Unknown History methadone 10 mg/mL oral concentrate 79 mg PO DAILY 04/14/21 04/30/21 Unknown History Exam Exam Date and Time: May 05, 2021 1215 Height,Weight and Vital Signs: Height 6 ft 0.5 in Weight 94.801 kg Pertinent Lab Results Pertinent Lab Results: Laboratory Tests 04/17/21 04/17/21 21:29 21:29 WBC 6.7 Hgb 8.8 L Hct 27.0 L Plt Count 248 Sodium 141 Potassium 4.5 D Chloride 106 Carbon Dioxide 28 BUN 15 D Creatinine 1.18 Narrative Narrative: EKG 03/2021 Vent. Rate : 068 BPM ? ? Atrial Rate : 068 BPM ?? P-R Int : 186 ms? QRS Dur : 094 ms ? ? QT Int : 430 ms ? ? ? P-R-T Axes : 013 049 050 degrees ?? QTc Int : 457 ms ? Normal sinus rhythm Normal ECG No previous ECGs available Assessment and Plan Assessment Anesthesia Assessment: Chart Reviewed Final Anesthetic Review Family History of Problems with Anesthesia: No History of Problems with Anesthesia: No Documented by User: Nilam Flanagan MD 05/06/21 11:15 [facility] Past Medical History Medical History (Updated 04/30/21 @ 10:47 by Radha Redding, WAYNE) Acute blood loss anemia Degenerative disc disease, cervical Duodenal ulcer History of blood transfusion Hypertension Neck pain Osteoarthritis Family History Family History (Updated 04/14/21 @ 07:00 by Rachael Lopez MD) Other No family history of disorders Surgical History Surgical History (Updated 04/30/21 @ 10:45 by Radha Redding RN) History of esophagogastroduodenoscopy (EGD) Hx of arthroscopic knee surgery Hx of cervical discectomy Hx of hand surgery Social History Social History (Updated 04/30/21 @ 10:51 by Radha Redding RN) Household Members: Spouse and Family Housing: House Are you a primary patient care specialist to a significant other at home: No Do you presently have visiting nurse or other home services: No Alcohol intake: never Patient Tobacco Use Status: Current everyday Tobacco user Tobacco use type: Cigarette Cigarettes Per Day: 3 Smoked in Last 30 Days: Yes Use of substances other than those prescribed or required for medical reasons: Yes Substance Use Type: Heroin and Marijuana Substance Use Frequency: Occasionally Last Used Substance Other:: denies Heroin use, marijuana occasionally for pain Have you been hit, kicked, punched, or otherwise hurt by someone within the past year? If so, by whom?: No Are you DNR?: No Advance Directives: No Advance Directives Information Provided: Yes Advance Directives on File: No Recently lost weight without trying: No Poor oral hygiene: No service: No Current occupational status: unemployed Meds Allergies Allergy/AdvReac Type Severity Reaction Status Date / Time prochlorperazine Allergy Unknown TINGLING Verified 04/30/21 10:47 [From COMPAZINE] Home Medications Medication Instructions Recorded Confirmed Last Taken Type amlodipine 10 mg tablet 1 tab PO DAILY 04/14/21 04/30/21 Unknown History dextroamphetamine-amphetamine ER 1 cap PO DAILY 04/14/21 04/30/21 Unknown History 30 mg 24hr capsule,extend release gabapentin 800 mg tablet 1 tab PO TID 04/14/21 04/30/21 Unknown History lisinopril 40 mg tablet 40 mg PO DAILY 04/14/21 04/30/21 Unknown History methadone 10 mg/mL oral concentrate 79 mg PO DAILY 04/14/21 04/30/21 Unknown History Exam Airway Mallampati Class: II (Missing couple teeth) TM Dist: >3cm Neck ROM: Full Heart: rrr Lungs: cta Assessment and Plan Assessment Anesthesia Assessment: Anesthesia Plan Discussed and Chart Reviewed Final Anesthetic Review NPO: Yes ASA Class: III Final Preanesthetic Review: No Changes in Pt Med Stat, Meds/Allgs Chart Reviewed and Consent Obtained/Reviewed Patient Risk: Intermediate Procedure Risk: Intermediate Anesthetic Plan Anesthetic Plan: MAC: Disposition: Standard PACU
[2021-05-06 11:04] VITALS: BP 152/96; PULSE 76; RESP 17; TEMP 36.5; O2SAT 99; BMI 27.4
--- NOTE | 2021-05-06 11:22 | MHC.SHP ---
Pre-Procedural Eval Section A Date of Service: 05/06/21 Section B Chief Complaint: peptic ulcer Details of Present Illness: anemia work up Relevant Family History (Specify if Yes): No Relevant Social History: Tobacco Use Present Medications: see Short Stay Collaborative assessment Medical History: Significant History (Acute blood loss anemia Degenerative disc disease, cervical Duodenal ulcer History of blood transfusion Hypertension Neck pain Osteoarthritis) History of Previous Operations: Relevant previous surgery/procedure and date(s) (History of esophagogastroduodenoscopy (EGD) Hx of arthroscopic knee surgery Hx of cervical discectomy Hx of hand surgery) Allergies: Allergies Allergy/AdvReac Type Severity Reaction Status Date / Time prochlorperazine Allergy Unknown TINGLING Verified 04/30/21 10:47 [From COMPAZINE] Review of Systems Sugical H&P ROS: Negative: Constitution, Cardiovascular, Respiratory, Neurological, Psychiatric, Hem-Onc, Allergic/Immunologic, Gastrointestinal, Genitourinary, Musculoskeletal, Integumentary, Endocrine and Eyes/Ears/Nose/Throat Exam Surgical H&P Exam: Normal: HEENT, Normal: Heart, Normal: Lungs, Normal: Extremities, Normal: Abdomen, Normal: Skin and Normal: Neurological Plan Diagnosis/Plan: Unchanged I have reviewed the history and physical and performed a pertinent physical examination on my patient. No changes have occurred unless specified.
--- NOTE | 2021-05-06 12:30 | P.BOP_ITS ---
Brief Operative Note Date of Service: 05/06/21 Pre-op diagnosis: anemia Post-op diagnosis: same Procedure: see op note Surgeon: Lin Almanza MD Anesthesia: MAC Was an Lead Sprinkler used for this Procedure?: No Estimated blood loss (mL): 0 Condition: stable Disposition: PACU
--- NOTE | 2021-05-06 12:30 | W.PM.OPN ---
Operative Note Operative Note Date of Service: 05/06/21 Narrative: Operative Information Procedure Description: Colonoscopy COLONOSCOPY Instrument: Olympus variable stiffness pediatric scope 190L Colonoscopy Monitoring: Vital signs and clinical assessment, continuous EKG monitoring, Pulse oximetry, Carbon Dioxide monitoring and blood pressure monitoring were done throughout the procedure. Colon withdrawal time was [] minutes. Procedure: The patient was placed in the left lateral decubitis position and pre-procedure medications were administered. After a digital rectal examination of the ano-rectum, the video colonoscope was inserted into the rectum and advanced through the colon to the cecum/TI. The colonoscope was slowly withdrawn in a retrograde panoramic fashion and the colon mucosa was carefully examined including a retroflexed view of the rectum. Findings and interventions are described below. Procedure Difficulty:moderate due to looping Findings: Terminal Ileum-not intubated Cecum:normal Ascending Colon: normal Transverse Colon -normal Descending Colon:normal Sigmoid Colon: moderate diverticulosis Rectum: Retroflexion with medium szied internal hemorrhoids, grade I Anorectum - normal Colon preparation: [place] Bowel Preparation Scale Right colon; 1 Transverse colon: 1 Left colon; 1 (0 = Unprepared colon segment with mucosa not seen due to solid stool that cannot be cleared. 1 = Portion of mucosa of the colon segment seen, but other areas of the colon segment not well seen due to staining, residual stool and/or opaque liquid. 2 = Minor amount of residual staining, small fragments of stool and/or opaque liquid, but mucosa of colon segment seen well. 3 = Entire mucosa of colon segment seen well with no residual staining, small fragments of stool or opaque liquid) Impression and Post Procedure Diagnosis: diverticulosis internal hemorrhoids Plan: High fiber diet leaflet Avoid straining at stool, epsom salts and sitz bath, anusol supps or cream Repeat Colonoscopy in 1 year or earlier if clinically indicated, next time do 2 d clears Above findings were reviewed with the patient and relevant handouts were provided if indicated.
[2021-05-06 12:32] VITALS: BP 132/84; PULSE 76; RESP 16; TEMP 36.9; O2SAT 98
[2021-05-06 12:47] VITALS: BP 148/96; PULSE 68; RESP 18; TEMP 36.6; O2SAT 99
--- NOTE | 2021-05-06 13:01 | PC.NURSE ---
patient dressing at bedside. tolerated po fluids. no nausea.
== END 2021-05-06 13:40 | disposition home or self-care (01) ==
PROVIDERS: Visit Provider Internal Medicine Gastroenterology
PROC: 0DJD8ZZ Inspection of Lower Intestinal Tract, Via Natural or Artificial Opening Endoscopic (ICD-10-PCS; CPT 45378; principal; 2021-05-06 11:40)
DX: K27.9 Peptic ulcer, site unspecified, unspecified as acute or chronic, without hemorrhage or perforation (principal); D62 Acute posthemorrhagic anemia; R19.5 Other fecal abnormalities; K57.30 Diverticulosis of large intestine without perforation or abscess without bleeding; K64.0 First degree hemorrhoids; I10 Essential (primary) hypertension; M19.90 Unspecified osteoarthritis, unspecified site; F90.9 Attention-deficit hyperactivity disorder, unspecified type; Z79.899 Other long term (current) drug therapy; Z88.8 Allergy status to other drugs, medicaments and biological substances
CPT/HCPCS: 45378

== ENCOUNTER → 2021-06-15 09:32 | Outpatient (BNVA) | payer MEDICARE, MEDICAID, SELFPAY | PROVIDERS: Visit Provider Internal Medicine Gastroenterology | DX: R10.9 Unspecified abdominal pain (principal) | CPT/HCPCS: 99212 ==

== ENCOUNTER → 2022-02-05 11:15 | Outpatient (BNVA) | payer MEDICARE, MEDICAID, SELFPAY | PROVIDERS: Visit Provider Internal Medicine Gastroenterology | DX: K27.9 Peptic ulcer, site unspecified, unspecified as acute or chronic, without hemorrhage or perforation (principal); K21.9 Gastro-esophageal reflux disease without esophagitis; K59.00 Constipation, unspecified | CPT/HCPCS: Q3014 ==

== ENCOUNTER → 2022-02-16 11:54 | Day surgery (SDC) | payer MEDICARE, MEDICAID, SELFPAY ==
[2022-02-16 12:01] VITALS: BMI 27.4
[2022-02-16 12:10] VITALS: BP 133/84; PULSE 79; RESP 16; TEMP 36.4; O2SAT 96; BMI 27.4
--- NOTE | 2022-02-16 12:24 | MHC.SHP ---
Pre-Procedural Eval Section A Date of Service: 02/16/22 The patient is an INPATIENT: No The History & Physical has been completed within 30 days and I have reviewed it.: Yes Section B Chief Complaint: ulcer,abd pain Relevant Family History (Specify if Yes): No Relevant Social History: Tobacco Use Present Medications: see Short Stay Collaborative assessment Medical History: Significant History (Acute blood loss anemia Degenerative disc disease, cervical Duodenal ulcer History of blood transfusion Hypertension Neck pain Osteoarthritis) History of Previous Operations: Relevant previous surgery/procedure and date(s) (History of esophagogastroduodenoscopy (EGD) Hx of arthroscopic knee surgery Hx of cervical discectomy Hx of colonoscopy Hx of hand surgery) Allergies: Allergies Allergy/AdvReac Type Severity Reaction Status Date / Time prochlorperazine Allergy Unknown TINGLING Verified 06/15/21 09:39 [From COMPAZINE] Review of Systems Sugical H&P ROS: Negative: Constitution, Cardiovascular, Respiratory, Neurological, Psychiatric, Hem-Onc, Allergic/Immunologic, Gastrointestinal, Genitourinary, Musculoskeletal, Integumentary, Endocrine and Eyes/Ears/Nose/Throat Exam Surgical H&P Exam: Normal: HEENT, Normal: Heart, Normal: Lungs, Normal: Extremities, Normal: Abdomen, Normal: Skin and Normal: Neurological Plan Diagnosis/Plan: Unchanged I have reviewed the history and physical and performed a pertinent physical examination on my patient. No changes have occurred unless specified.
[2022-02-16] MEDS: Lactated Ringers 1,000 ML 100 ML IVCONT (12:41)
--- NOTE | 2022-02-16 12:55 | P.CONAN_ITS ---
HPI - Anesthesia Eval Consult details Narrative: 61 yo male patient for EGD PMF Active Problems Active Problems: All Active Problems (Updated 04/30/21 @ 10:47 by Radha Redding RN) Gastroenteritis (Acute) Dehydration (Acute) Nausea vomiting and diarrhea (Acute) Abdominal pain (Acute) On methadone. Last dose this am 02/16/22 Past Medical History Medical History Acute blood loss anemia Degenerative disc disease, cervical Duodenal ulcer History of blood transfusion Hypertension Neck pain Osteoarthritis Family History Family History Mother HTN (hypertension) Maternal Grandmother HTN (hypertension) Maternal Uncle HTN (hypertension) Maternal Uncle HTN (hypertension) Sister Diabetes Family history of problems with anesthesia: No Surgical History Surgical History History of esophagogastroduodenoscopy (EGD) Hx of arthroscopic knee surgery Hx of cervical discectomy Hx of colonoscopy Hx of hand surgery History of Problems with Anesthesia: No Social History Social History Household Members: Spouse and Family Housing: House Are you a primary resident care assistant to a significant other at home: No Do you presently have visiting nurse or other home services: No Alcohol intake: never Patient Tobacco Use Status: Current everyday Tobacco user Tobacco use type: Cigarette Cigarettes Per Day: 3 Date Education Initiated: 02/16/22 Use of substances other than those prescribed or required for medical reasons: No Substance Use Type: Heroin and Marijuana Substance Use Type Other:: former fentanyl 1 month ago, methadone for 2 years Are you DNR?: No Advance Directives: No Advance Directives Information Provided: Yes service: No Current occupational status: unemployed Meds Allergies Allergy/AdvReac Type Severity Reaction Status Date / Time prochlorperazine Allergy Unknown TINGLING Verified 06/15/21 09:39 [From COMPAZINE] Active Medications: Current Medications Albuterol Sulfate (Albuterol Sulfate (0.083%) 2.5 Mg/3 Ml Vial.Neb) 2.5 mg INHALE ONCE PRN PRN Reason: Wheezing Lactated Ringer's (Lr) 1,000 mls @ 100 mls/hr IVCONT .Q10H CATHLEEN Last Admin: 02/16/22 12:41 Dose: 100 mls/hr Home Medications Medication Instructions Recorded Confirmed Last Taken Type amlodipine 10 mg tablet 1 tab PO DAILY 04/14/21 04/30/21 02/16/22 History dextroamphetamine-amphetamine ER 1 cap PO DAILY 04/14/21 04/30/21 Unknown History 30 mg 24hr capsule,extend release gabapentin 800 mg tablet 1 tab PO TID 04/14/21 04/30/21 Unknown History lisinopril 40 mg tablet 40 mg PO DAILY 04/14/21 04/30/21 02/16/22 History methadone 10 mg/mL oral concentrate 50 mg PO DAILY 06/15/21 Unknown History Exam Exam Date and Time: February 16, 2022 1255 Height,Weight and Vital Signs: Height 6 ft 0.5 in Weight 92.986 kg Last Vital Signs Temp 97.5 F 02/16/22 12:10 Pulse 79 02/16/22 12:10 Resp 16 02/16/22 12:10 BP 133/84 02/16/22 12:10 Pulse Ox 96 02/16/22 12:10 O2 Del Method 02/16/22 12:10 Airway Mallampati Class: II TM Dist: >3cm Neck ROM: Full Loose/Missing/Broken Teeth: No (Denies broken or loose teeth) Heart: RRR Lungs: CTAB Assessment and Plan Assessment Anesthesia Assessment: Anesthesia Plan Discussed and Chart Reviewed Final Anesthetic Review Family History of Problems with Anesthesia: No History of Problems with Anesthesia: No NPO: Yes ASA Class: II Final Preanesthetic Review: No Changes in Pt Med Stat, Meds/Allgs Chart Reviewed, Consent Obtained/Reviewed and Anes Risks/Benef Reviewed Patient Risk: Low Procedure Risk: Low Assessment/Block/Sedation in SS: Assess/Block/Sedation-SS Anesthetic Plan Anesthetic Plan: MAC: Disposition: Standard PACU
--- NOTE | 2022-02-16 13:25 | W.PM.OPN ---
Operative Note Operative Note Narrative: Procedure Description: EGD Indication: Hx of peptic ulcer Anesthesia: MAC FLEXIBLE TRANSORAL UPPER GASTROINTESTINAL ENDOSCOPY UPPER ENDOSCOPY Consent: Indications for the procedure and potential complications of bleeding, perforation, reaction to medications and missed diagnosis were discussed with the patient and informed consent was obtained. Instrument: Olympus GIF H 190 J mid size upper endoscope Monitoring: Vital signs and clinical assessment, continuous EKG monitoring, Pulse oximetry, Carbon Dioxide monitoring and blood pressure monitoring were done throughout the procedure. Procedure: The patient was placed in the left lateral decubitis position and pre-procedure medications were administered and a bite block was placed. The endoscope was inserted into the mouth and advanced under direct vision to the third part of duodenum. A careful inspection was made as the upper endoscope was withdrawn including a retroflexed examination of the proximal stomach; Findings and interventions are described below. Findings: Larynx:normal Esophagus: GE junction at 38 cm, diaphragm hiatus at 38 cm, no varices or esophagitis. Stomach: Patchy gastric erythema. Biopsies were obtained. Grade 2 flap valve on retroflexed examination of the cardia. Duodenum: Normal bulb and descending duodenum, bx taken Intervention: Biopsies as noted above Impression/Findings: [] PLAN: []
[2022-02-16 13:27] LABS: Amphetamine Screen Urine POSITIVE (Not Detect); Barbiturates, Urine Not Detected (Not Detect); Benzodiazepines Screen Urine Not Detected (Not Detect); Cannabinoid Screen Urine POSITIVE (Not Detect); Cocaine Screen Urine Not Detected (Not Detect); Fentanyl, urine POSITIVE (Not Detect); Opiate Screen Urine POSITIVE (Not Detect); Phencyclidine Screen Urine Not Detected (Not Detect)
--- NOTE | 2022-02-16 13:35 | PC.NURSE ---
late entry, pt admitted to last dose of fentanyl 1 month ago, takes methadone, text note to Dr. Watters floor anesthesia & urine drug screen ordered & +for opiates, fentanyl, marijuana amphetamines. pt does take addirall as well. Dr. Bermudez over to see pt. case cancelled. pt encouraged to reschedule and to avoid recreational drugs that are not prescribed to him and encouraged to reschedule egd due to gi bleed and transfusion of prbc's recent hx. pt became very upset, cursing quietly, but allowed this RN to remove his IV & apply dsd - no oozing. pt dressed and left ambulatory.
== END ==
PROVIDERS: Anesthesiology; Visit Provider Internal Medicine Gastroenterology
DX: R10.9 Unspecified abdominal pain (principal); Z53.8 Procedure and treatment not carried out for other reasons; R82.5 Elevated urine levels of drugs, medicaments and biological substances; K27.9 Peptic ulcer, site unspecified, unspecified as acute or chronic, without hemorrhage or perforation; K21.9 Gastro-esophageal reflux disease without esophagitis; F11.90 Opioid use, unspecified, uncomplicated; Z79.899 Other long term (current) drug therapy
CPT/HCPCS: 80307

== ENCOUNTER 2023-04-04 08:22 | Emergency (ER) | payer OTHER, MEDICAID, SELFPAY ==
--- NOTE | ~2023-04-04 | CT_ITS ---
EXAMINATION: CT HEAD WITHOUT CONTRAST CLINICAL INFORMATION: Pain, blurry vision COMPARISON: None available. TECHNIQUE: Contiguous axial imaging was performed from the skull base to vertex without intravenous administration of contrast. This CT examination was performed using dose optimization techniques as appropriate, variously including the following: *Automated exposure control *Adjustment of mA and/or kV according to patient size (this includes techniques or standardized protocols for targeted exams where dose is matched to indication/reason for exam; i.e. extremities or head) *Use of iterative reconstruction technique DLP: 805 mGy-cm FINDINGS: There is no intracranial hemorrhage or evidence of acute territorial infarction. There is no mass effect or midline shift. No abnormal extra-axial fluid collection. A Dominic cisterna magna is noted, a normal variant. Hilliard-white matter differentiation is maintained. The ventricles are normal. There is no abnormal low attenuation. The paranasal sinuses and mastoid air cells are clear. There are calcified vessels within the brain indicative of atherosclerotic disease. No acute osseous abnormality. CT/CT head/brain wo IV con IMPRESSION: No acute intracranial pathology.
--- NOTE | ~2023-04-04 | CT_ITS ---
EXAMINATION: CTA OF THE HEAD AND NECK CLINICAL INFORMATION: Headaches and blurred vision. Reported past history of brain aneurysm. COMPARISON: Head CT from 04/04/2023. TECHNIQUE: Test bolus sequences followed by intravenous administration 70 mL of Omnipaque 350. Helical imaging was performed in the axial plane from the mediastinum to the skull vertex. Delayed postcontrast imaging of the head was also performed. The data was processed at the systems technologist's workstation for generation of MIP sequences. Three-dimensional volume rendered reformatted images were also generated at an offline 3-D workstation. Stenoses are assessed in accordance with NASCET criteria unless otherwise indicated. This CT examination was performed using dose optimization techniques as appropriate, variously including the following: *Automated exposure control *Adjustment of mA and/or kV according to patient size (this includes techniques or standardized protocols for targeted exams where dose is matched to indication/reason for exam; i.e. extremities or head) *Use of iterative reconstruction technique DLP: 1715 mGy-cm. FINDINGS: CTA neck: The imaged aortic arch and origins of the great vessels are widely patent with mild atherosclerotic wall calcifications. The common carotid arteries are widely patent. The carotid bifurcations are normal in caliber with mild wall calcifications. The remainder of the cervical internal carotid arteries are normal. The vertebral arteries opacify normally and are of normal caliber with mild atherosclerotic wall calcifications. The soft tissues of the neck are unremarkable. The patient is status post previous anterior cervical discectomies and fusion with hardware instrumentation at the C5-C6 and C6-C7 levels. The imaged portions of the lungs are clear with [id number] emphysematous changes. CTA head: The intradural vertebral arteries and basilar artery are normal. The posterior cerebral arteries are widely patent. The internal carotid arteries are of normal caliber. The WYATT and MCA vascular complexes bilaterally are normal. Small patchy areas of low-density change in the brain parenchyma may be due to chronic microangiopathy. The venous sinuses opacify normally. CT/CT angio head neck IMPRESSION: Scattered atherosclerotic wall calcifications without a hemodynamically significant stenosis or vessel occlusion in the cervical or intracranial vasculature. [id number] emphysematous changes in the lungs. Imaging findings reported to YANIV Kincaid at 1:40 PM on 04/04/2023.
[2023-04-04 08:39] VITALS: BP 187/115; PULSE 77; RESP 20; TEMP 36.8; O2SAT 97; BMI 28.2
[2023-04-04 08:54] LABS: MANUAL DIFF FLAG NO
[2023-04-04 08:55] LABS: Basophils Percent Auto 0.3 % (0-2); Eosinophils Absolute Auto 0.1 X10*3/uL (0.0-0.4); Eosinophils Percent Auto 0.9 % (0-4); Hematocrit 43.2 % (42.0-52.0); Hemoglobin 14.8 g/dl (14.0-18.0); Imm Gran Abs Auto 0.04 X10*3/uL (0.00-0.03); Imm Gran Pct Auto 0.3 % (0.0-0.4); Lymphocytes Absolute Auto 2.2 X10*3/uL (1.2-4.9); Lymphocytes Percent Auto 17.6 % (20-40); Mean Corpuscular HGB Conc 34.3 g/dl (31.0-36.0); Mean Corpuscular Hemoglobin 31.6 pg (27.0-33.0); Mean Corpuscular Volume 92.3 fL (80.0-98.0); Mean Platelet Volume 9.1 fL (9.4-12.4); Monocytes Absolute Auto 0.8 X10*3/uL (0.1-1.2); Monocytes Percent Auto 6.7 % (2-11); Neutrophils Absolute Auto 9.3 x10*3/uL (2.0-8.3); Neutrophils Percent Auto 74.2 % (45-73); Platelet Count 254 X10*3/uL (160-400); Red Blood Count 4.68 X10*6/uL (4.60-5.80); Red Cell Distribution Width 12.5 % (11.0-16.0); White Blood Count 12.5 X10*3/uL (4.8-10.8)
[2023-04-04 09:07] LABS: COVID-19 Test Negative (Negative)
[2023-04-04 09:08] LABS: IDNOW Serial# 152EDE1D
[2023-04-04 09:16] LABS: Alanine Aminotransferase 14 U/L (0-40); Albumin Level 4.6 g/dL (3.5-5.0); Alkaline Phosphatase 84 U/L (39-117); Anion Gap 15 (12-20); Aspartate Amino Transferase 15 U/L (5-37); Bilirubin Total 0.3 mg/dL (0.0-1.0); Blood Urea Nitrogen 13 mg/dL (9-16); Calcium 9.9 mg/dL (8.4-10.2); Carbon Dioxide 26 mmol/L (22-29); Chloride 101 mmol/L (96-108); Creatinine Clr Calc Pharmacy 92.5; Estimated Glomerular Filt Rate > 60; Glucose Random 106 mg/dL (60-115); Potassium 3.9 mmol/L (3.3-5.1); Sodium 138 mmol/L (135-145); Total Protein 7.7 g/dL (6.5-8.0)
--- NOTE | 2023-04-04 11:11 | ED_ITS ---
HPI - General Adult General Chief complaint: Headache Stated complaint: headache back of head Time Seen by Provider: 04/04/23 11:00 Source: patient Mode of arrival: ambulatory Limitations: no limitations History of Present Illness HPI narrative: 62 yold male with pmh of migraines, methadone use for opoid abuse, gastroenteritis, cervical spine surgery, GI bleed, presents to the ED for 3 days of posterior headache and this morning having left eye blurry vision that's resolved. Patient denies any facial droop, slurred speech, paralysis of extremities, altered mental status, neck stiffness, or any recent trauma. Patient snorted heroin last week. Related Data Home Medications Medication Instructions Recorded Confirmed amlodipine 10 mg tablet 1 tab PO DAILY 04/14/21 04/30/21 dextroamphetamine-amphetamine ER 1 cap PO DAILY 04/14/21 04/30/21 30 mg 24hr capsule,extend release gabapentin 800 mg tablet 1 tab PO TID 04/14/21 04/30/21 lisinopril 40 mg tablet 40 mg PO DAILY 04/14/21 04/30/21 methadone 10 mg/mL oral concentrate 50 mg PO DAILY 06/15/21 Previous Rx's Medication Instructions Recorded linaclotide 290 mcg capsule 290 mcg PO DAILY #30 caps 05/23/22 (Linzess) pantoprazole 40 mg tablet,delayed 40 mg PO DAILY #30 tabs 07/02/22 release jalziuggsy-pkybvjrtwyvut-zfptstld 1 cap PO Q6H PRN pain 3 days #12 04/04/23 50 mg-300 mg-40 mg capsule caps (Fioricet) metoclopramide HCl 10 mg tablet 10 mg PO Q6H PRN nausea and 04/04/23 (Reglan) vomiting 2 days #8 tabs Allergies Allergy/AdvReac Type Severity Reaction Status Date / Time prochlorperazine Allergy Unknown TINGLING Verified 04/04/23 08:44 [From COMPAZINE] Review of Systems 2 Review of Systems: Posterior headache. resolved left eye blurriness. Yes all other systems are reviewed and are negative PMFSH Past Medical History Onset Date is defined in the Problem List Problems that require an onset date and time if occurred within 24 hrs of arrival to the ED Aortic Dissection and Rupture; Neurologic impairment; Cardiopulmonary Arrest; Endotracheal Intubation; Insertion or Replacement of Mechanical Circulatory Assist Device Medical History Acute blood loss anemia Degenerative disc disease, cervical Duodenal ulcer History of blood transfusion Hypertension Neck pain Osteoarthritis Surgical History History of esophagogastroduodenoscopy (EGD) Hx of arthroscopic knee surgery Hx of cervical discectomy Hx of colonoscopy Hx of hand surgery Family History Family History Mother HTN (hypertension) Maternal Grandmother HTN (hypertension) Maternal Uncle HTN (hypertension) Maternal Uncle HTN (hypertension) Sister Diabetes Social History Social History Household Members: Spouse and Family Housing: House Are you a primary health care analyst to a significant other at home: No Do you presently have visiting nurse or other home services: No Alcohol intake: never Patient Tobacco Use Status: Current everyday Tobacco user Tobacco use type: Cigarette Cigarettes Per Day: 3 Smoked in Last 30 Days: Yes Use of substances other than those prescribed or required for medical reasons: Yes Substance Use Type: Marijuana Advance Directives: No Advance Directives Information Provided: No service: No Current occupational status: unemployed Physical Exam ED Vital Signs: Vital Signs - 24 hr 04/04/23 08:39 04/04/23 11:14 04/04/23 12:32 Temperature 98.2 F 98 F Pulse Rate 77 70 Respiratory Rate 20 20 Blood Pressure 187/115 H 172/103 H 152/98 H Pulse Oximetry 97 97 Oxygen Delivery Method Room Air Room Air 04/04/23 14:06 Temperature Pulse Rate 61 Respiratory Rate 18 Blood Pressure 150/88 H Pulse Oximetry 97 Oxygen Delivery Method Room Air BMI result Body Mass Index 28.2 Const General: cooperative, healthy appearing, comfortable, no acute distress, well developed, alert, awake and Physically active Orientation/consciousness: oriented to person, oriented to place, oriented to time and patient oriented x3 HENMT Head: Yes normal to inspection, Yes No palpable skull fracture present, Yes normocephalic and Yes atraumatic Head images: 2 1. Positive for tenderness on palpation. Negative crepitus, ecchymosis, mass, fluctuance, or deformity. Ears: hearing grossly normal bilaterally, external ears normal, TM's normal bilaterally, TM normal on the right, TM normal on the left, EAC's normal, mastoids normal and no periauricular adenopathy Throat: Yes posterior oropharynx normal, Yes tonsils normal and Yes uvula midline Eyes Other: Negative photophobia. Presently no blurry vision in the eye. General: appearance normal, both eyes and all related structures Visual Pineda: normal visual pineda by confrontation Alignment and Position: alignment normal Periorbital: periorbital findings normal Eyelids: Yes eyelids normal Conjunctivae: conjunctivae normal Sclerae: sclerae normal Corneas: corneas normal Pupils: Equal, round and reactive pupils present EOM: EOMs intact bilaterally Direct Ophthalmoscopy: normal light reflex Neck Other: Negative for any posterior cervical spine tenderness on palpation. Negative for lateral neck tenderness or pain on palpation. Neck: Yes normal visual inspection, Yes full ROM, Yes no lymphadenopathy, Yes no meningeal signs, Yes trachea midline, Yes supple, No anterior neck swelling and No tender Chest Chest palpation & inspection: normal inspection of the chest and normal palpation of entire chest wall Cardio Jugular venous distension: no JVD Heart sounds: S1 normal heart sound present and S2 normal heart sound present GI Inspection: Yes normal to inspection Palpation (GI): Soft to palpation, not firm, nontender, no guarding and not rigid General: No CVA tenderness and Yes no CVA tenderness Back/Spine/Pelvis Back: no CVA tenderness, No CVA tenderness and No back tenderness Skin General skin exam: no rashes or lesions noted, elasticity normal and turgor normal Neuro General: oriented to person, oriented to place, oriented to time, patient oriented x3, gait normal, tone normal, moves all extremities, Normal light touch and pain sensation, no meningeal signs, no focal motor deficits, CN's II-XI intact bilaterally and normal sensation to monofilament Cranial nerves: Yes Equal, round and reactive pupils present Extrem General: Yes normal to inspection and Yes full ROM Psych Appearance: grossly normal, well kempt and not disheveled NIH Stroke Scale Internal: Initial- Upon Arrival Level of Consciousness: Alert Level of Consciousness Questions: Answers both questions correctly Level of Consciousness Commands: Performs both tasks correctly Best Gaze: Normal Visual: No visual loss Facial Palsy: Normal Motor Arm (Right): No drift Motor Arm (Left): No drift Motor Leg (Right): No drift Motor Leg (Left): No drift Limb Ataxia: Absent Sensory: Normal Best Language: No aphasia Dysarthia: Normal Extinction and Inattention: No abnormality Score: 0 Medications Administered Discontinued Medications Generic Name Dose Route Start Last Admin Trade Name Shashankq PRN Reason Stop Dose Admin Cyclobenzaprine HCl 10 mg 04/04/23 12:36 04/04/23 12:42 Cyclobenzaprine Hcl 10 Mg Tablet PO 04/04/23 12:37 10 mg ONCE ONE Administration Dexamethasone Sodium Phosphate 10 mg 04/04/23 12:51 04/04/23 13:09 Dexamethasone Sod Phosphate 10 Mg/Ml Vial IVPUSH 04/04/23 12:52 10 mg ONCE ONE Administration Diphenhydramine HCl 50 mg 04/04/23 11:31 04/04/23 11:39 Diphenhydramine Hcl 25 Mg Capsule PO 04/04/23 11:32 50 mg ONCE ONE Administration Diphenhydramine HCl 25 mg 04/04/23 12:51 04/04/23 13:09 Diphenhydramine Hcl 50 Mg/Ml Vial IVPUSH 04/04/23 12:52 25 mg ONCE ONE Administration Iohexol 100 ml 04/04/23 13:03 04/04/23 13:03 Iohexol 350 Mg/Ml 100 Ml Infus..Btl IV 04/04/23 13:04 70 ml ONCE ONE Administration Metoclopramide HCl 10 mg 04/04/23 11:31 04/04/23 11:39 Metoclopramide Hcl 10 Mg Tablet PO 04/04/23 11:32 10 mg ONCE ONE Administration Metoclopramide HCl 10 mg 04/04/23 12:51 04/04/23 13:09 Metoclopramide Hcl 10 Mg/2 Ml Vial IVPUSH 04/04/23 12:52 10 mg ONCE ONE Administration Tramadol HCl 50 mg 04/04/23 12:36 04/04/23 12:42 Tramadol Hcl 50 Mg Tablet PO 04/04/23 12:37 50 mg ONCE ONE Administration Medical Decision Making Medical Decision Making MDM Narrative: 62 yold with past medical history of migraines, brain aneurysm, cervical spine surgery, methadon use presents to the ED for left base of skull occipital pain for the past 3 days and than having left eye blurry vision this morning that resolved. Patient denies any trauma, slurred speech, loss of vision, or any paralysis of extremities. Patient denies any neck pain. Physical exam negative for any cervical spine tenderness or signs of meningitis. Physical exam positive for left occipital skull tenderness on palpation. Negative for temporal arteritis tenderness on palpation. Head CT scan came back normal. Bright light placed in patient's eyes without any photophobia. Patient playing on phone with bright light video games without any photophobia. 12:45pm: CRP negative. Head CT scan negative. Discussed with with Dr. Levy who agrees patient should receive head CTA rule out small aneurysmal bleed. Patient states GI bleed last year and was informed by mail officer not receive any NSAIDs. Will give another Benadryl IV and Reglan as up-to-date states Reglan can be given up to 20 mg. Also give Decadron. 2;21pm: Head CT came back negative for brain aneurysm occlusion or bleed. Patient headache improving and resolving with IV Benadryl, IV Decadron, and IV Reglan. We will do EKG and 1 troponin due to patient be hypertensive on initial ED visit. Most likely patient will be discharged 3:06pm: EKG negative STEMI. Troponin negative. Patient will be discharged. Negative for any neuro deficits. Patient alert oriented x3. Presently negative for any photophobia, nausea, vomiting. Patient states headache resolved. Not suspecting meningitis, encephalitis, cervical epidural abscess, stroke, brain bleed, temporal arteritits, caroitd dissection, or aneurysm rupture. Differential Diagnosis Differential Diagnoses: The differential diagnosis associated with the presentation includes (Migraine headache, tension headache, COVID, hypertensive headache) Admission/Observation Consideration of admission/observation: Escalation of care including admission/observation considered Lab Data MDM Lab Attestation statement: I reviewed the patient's lab results. 04/04/23 08:49 04/04/23 08:49 Labs: Lab Results 04/04/23 Range/Units 08:49 WBC 12.5 H (4.8-10.8) X10*3/uL RBC 4.68 D (4.60-5.80) X10*6/uL Hgb 14.8 D (14.0-18.0) g/dl Hct 43.2 D (42.0-52.0) % MCV 92.3 (80.0-98.0) fL MCH 31.6 (27.0-33.0) pg MCHC 34.3 (31.0-36.0) g/dl RDW 12.5 (11.0-16.0) % Plt Count 254 (160-400) X10*3/uL MPV 9.1 L (9.4-12.4) fL Immature Gran % (Auto) 0.3 (0.0-0.4) % Neut % (Auto) 74.2 H (45-73) % Lymph % (Auto) 17.6 L (20-40) % [place] % (Auto) 6.7 (2-11) % Eos % (Auto) 0.9 (0-4) % Baso % (Auto) 0.3 (0-2) % Lymph # (Auto) 2.2 (1.2-4.9) X10*3/uL [place] # (Auto) 0.8 (0.1-1.2) X10*3/uL Eos # (Auto) 0.1 (0.0-0.4) X10*3/uL Baso # (Auto) 0.0 (0.0-0.2) X10*3/uL Abs Immat Gran (auto) 0.04 H (0.00-0.03) X10*3/uL Absolute Neuts (auto) 9.3 H (2.0-8.3) x10*3/uL Absolute Nucleated RBC 0.000 (0.0-0.012) X10*3/uL Nucleated RBC % (auto) 0.0 (0.0-0.2) /100WBC ESR 7 (0-15) MM/HR Sodium 138 (135-145) mmol/L Potassium 3.9 (3.3-5.1) mmol/L Chloride 101 (96-108) mmol/L Carbon Dioxide 26 (22-29) mmol/L Anion Gap 15 (12-20) BUN 13 (9-16) mg/dL Creatinine 1.00 (0.5-1.4) mg/dL Estim Creat Clear Calc 92.5 Estimated GFR > 60 Random Glucose 106 (60-115) mg/dL Calcium 9.9 D (8.4-10.2) mg/dL Total Bilirubin 0.3 (0.0-1.0) mg/dL AST 15 (5-37) U/L ALT 14 (0-40) U/L Alkaline Phosphatase 84 (39-117) U/L Troponin I High Sens < 2.7 (<3.5-35.0) ng/L C-Reactive Protein 0.36 (< or = 0.50) mg/dL Total Protein 7.7 (6.5-8.0) g/dL Albumin 4.6 (3.5-5.0) g/dL COVID-19 (KEILY) Negative (Negative) COVID-19 Clin Com See Note Independent Interpretation I performed an independent interpretation of an: CT Scan Radiology Impression Discussion of test interpretation with radiology: I have reviewed the radiologist's reading. External Record Review External record reviewed: Other (Prior visits) Prescription Management I considered prescription management with: Pain Medication Discharge Plan Discharge Clinical Impression: Headache, Hypertension Patient Disposition: Home, Self-Care Instructions: Hypertension (ED), General Headache (ED) Additional Instructions: Follow-up with your primary care provider. Return to the ED immediately for any worsening headache, slurred speech, facial droop, paralysis of extremities, loss of vision, nausea, vomiting, worsening headache, neck stiffness, fever, chill, or any other concerning symptoms. Prescriptions: New metoclopramide HCl [Reglan] 10 mg tablet 10 mg PO Q6H PRN (Reason: nausea and vomiting) 2 Days Qty: 8 0RF dixffxfpyb-gemzixylyakuj-dedq [Fioricet] 50-300-40 mg capsule 1 cap PO Q6H PRN (Reason: pain) 3 Days Qty: 12 0RF No Action Linzess 290 mcg capsule 290 mcg PO DAILY Qty: 30 2RF pantoprazole 40 mg tablet,delayed release (DR/EC) 40 mg PO DAILY Qty: 30 2RF gabapentin 800 mg tablet 1 tab PO TID amlodipine 10 mg tablet 1 tab PO DAILY dextroamphetamine-amphetamine 30 mg capsule,extended release 24hr 1 cap PO DAILY lisinopril 40 mg tablet 40 mg PO DAILY methadone 10 mg/mL concentrate 50 mg PO DAILY Stand Alone Forms: Work/School Release Interventions: ED Discharge Assessment Last Done: 04/04/23 15:20 Discharge Date/Time: 04/04/23 15:21 Print Language: Hungarian
[2023-04-04 11:14] VITALS: BP 172/103; PULSE 70; RESP 20; TEMP 36.6; O2SAT 97
[2023-04-04] MEDS: diphenhydrAMINE HCL 25 MG CAPSULE 50 MG PO (11:39)
[2023-04-04] MEDS: Metoclopramide HCl 10 MG TABLET PO (11:39)
[2023-04-04 12:11] LABS: C Reactive Protein 0.36 mg/dL (< or = 0.50)
[2023-04-04 12:32] VITALS: BP 152/98
[2023-04-04] MEDS: traMADoL HCL 50 MG TABLET PO (12:42)
[2023-04-04] MEDS: Cyclobenzaprine HCl 10 MG TABLET PO (12:42)
[2023-04-04 12:55] LABS: Erythrocyte Sedimentation Rate 7 MM/HR (0-15)
[2023-04-04] MEDS: iohexoL 350 MG/ML 100 ML INFUS..BTL IV (13:03)
[2023-04-04] MEDS: diphenhydrAMINE HCL 50 MG/ML VIAL 25 MG IVPUSH (13:09)
[2023-04-04] MEDS: Metoclopramide HCl 10 MG/2 ML VIAL IVPUSH (13:09)
[2023-04-04] MEDS: dexAMETHasone sod phosphate 10 MG/ML VIAL IVPUSH (13:09)
[2023-04-04 14:06] VITALS: BP 150/88; PULSE 61; RESP 18; O2SAT 97
--- NOTE | 2023-04-04 14:06 | ECG_ITS ---
Test Reason : HIGH BP Blood Pressure : / mmHG Vent. Rate : 068 BPM Atrial Rate : 068 BPM P-R Int : 196 ms QRS Dur : 092 ms QT Int : 428 ms P-R-T Axes : 047 -07 036 degrees QTc Int : 455 ms Normal sinus rhythm Normal ECG When compared with ECG of 17-APR-2021 21:49, Questionable change in QRS axis Referred By: Jacobo Kincaid Electronically Signed By:EVELYN AGUIRRE
[2023-04-04 14:32] LABS: Troponin-I High Sensitivity < 2.7 ng/L (<3.5-35.0)
== END 2023-04-04 15:21 | disposition home or self-care (01) ==
PROVIDERS: Physician Assistant; Emergency Provider Emergency Medicine
DX: R51.9 Headache, unspecified (principal); M54.2 Cervicalgia; I10 Essential (primary) hypertension; Z79.899 Other long term (current) drug therapy; Z20.828 Contact with and (suspected) exposure to other viral communicable diseases; Z11.52 Encounter for screening for COVID-19
CPT/HCPCS: 36415; 70450; 70496; 70498; 80053; 84484; 85025; 85652; 86140; 87635; 93005; 96374; 96375; 99284; 99285; J1100; J1200; J2765; Q9967

== ENCOUNTER → 2023-04-04 14:06 | Outpatient (BNV) | payer OTHER, MEDICAID, SELFPAY | PROVIDERS: Emergency Provider Emergency Medicine; Visit Provider Internal Medicine | DX: R03.0 Elevated blood-pressure reading, without diagnosis of hypertension (principal) | CPT/HCPCS: 93010 ==

== ENCOUNTER 2023-09-26 14:02 | Outpatient (AMB) | payer OTHER, SELFPAY ==
--- NOTE | 2023-09-26 14:09 | A.OFFPC_ITS ---
Vital Signs 09/26/23 14:14 Height 6 ft Weight 211 lb BMI 28.6 BP 124/80 Blood Pressure Location Rt brachial Position Sitting Pulse 75 Pulse Source Pulse Oximeter Pulse Oximetry (%) 95 Oxygen Delivery Method Room Air Intake Visit Reasons: Problem Urinating (f/u with JG) Intake Note: pt is here c/o urinary issues. New pt Allergies prochlorperazine [From COMPAZINE] Allergy (Unknown, Verified 09/26/23 14:29) TINGLING pantoprazole Adverse Reaction (Intermediate, Verified 09/26/23 14:29) Headache omeprazole Adverse Reaction (Intermediate, Uncoded 09/26/23 14:29) Headache Medication List - Last Reconciled 09/26/23 by BLAIR Vazquez amlodipine 1 tab PO DAILY dextroamphetamine-amphetamine 10 mg ER 1 cap PO QAM dextroamphetamine-amphetamine 30 mg (Adderall) 30 mg PO DAILY gabapentin 1 tab PO TID lisinopril 40 mg PO DAILY methadone 50 mg PO DAILY Tobacco use date assessed: 09/26/23 Dental Screening Dental Screen Date: 09/26/23 Did you have a dental visit in the last 12 months?: Yes Did you have a dental problem in the last 6 months where you did not have access to dental care?: No Was dental information given to patient?: Patient has dentist HPI HPI Comments History of Present Illness Details Patient is a 62-year-old male who I am meeting for the 1st time here to establish care. He has a primary complaint of cervical neck pain. This is a chronic issue has history of cervical disectomy. Patient would like referral to [facility]. Will refer. Will obtain records from previous provider. Patient has signed release in office today. Will order fasting labs. [facility] Medical History (Updated 09/26/23 @ 14:54 by BLAIR Vazquez) Neck pain Osteoarthritis Degenerative disc disease, cervical History of blood transfusion Duodenal ulcer Hypertension Acute blood loss anemia Surgical History Hx of colonoscopy History of esophagogastroduodenoscopy (EGD) Hx of cervical discectomy Hx of arthroscopic knee surgery Hx of hand surgery Family History Mother HTN (hypertension) Maternal Grandmother HTN (hypertension) Maternal Uncle HTN (hypertension) Maternal Uncle HTN (hypertension) Sister Diabetes Social History Household Members: Spouse and Family Housing: House Are you a primary administrator health care facility to a significant other at home: No Do you presently have visiting nurse or other home services: No Alcohol intake: never Patient Tobacco Use Status: Current everyday Tobacco user Tobacco use type: Cigarette Cigarettes Per Day: 3 Substance Use Type: Marijuana service: No Current occupational status: unemployed Questionnaire PHQ-9 Over the last 2 weeks, how often have you been bothered by any of the following problems? 1. Little interest or pleasure in doing things: not at all 2. Feeling down, depressed, or hopeless: not at all 3. Trouble falling or staying asleep, or sleeping too much: not at all 4. Feeling tired or having little energy: not at all 5. Poor appetite or overeating: not at all 6. Feeling bad about yourself - or that you are a failure or have let yourself or your family down: not at all 7. Trouble concentrating on things, such as reading the newspaper or watching television: not at all 8. Moving or speaking so slowly that other people could have noticed. Or the opposite - being so fidgety or restless that you have been moving around a lot more than usual: not at all 9. Thoughts that you would be better off or of hurting yourself in some way: not at all Total score: 0 Depression Screening Interpretation: Negative Depression Screening Done: Yes 95496 - PHQ-9 Billing: Yes Source: Developed by Drs. Dae Miranda, Sierra Weston, [place] and colleagues, with an educational marquise from [employer]. Thrive Questionnaire Date Thrive assessed: 09/26/23 I am a: Patient What is your living situation today?: I have a steady place to live Within the past 12 months, did the food you bought not last and you didn't have the money to get more?: Never true Within the past 12 months, did you worry whether your food would run out before you got money to buy more?: Never true Do you have trouble paying for medicines?: No Do you have trouble getting transportation to medical appointments?: No Do you have trouble paying your heating and electricity bill?: No Do you have trouble taking care of your child, family member or friend?: No Do you have trouble with day-to-day activities such as bathing, preparing meals, shopping, managing finances, etc.?: No Are you currently unemployed and looking for a job?: No Are you interested in more education?: No Please select the resources that you would like help with: None Currently or been in a relationship where the following occur: No concerns reported THRIVE Score: 0 AUDIT C Alcohol Use Questionnaire (AUDIT-C) 1. How often do you have a drink containing alcohol?: Never 3. How often do you have six or more drinks on one occasion?: Never Total Score: 0 DOREEN-7 AMB Questionnaire DOREEN-7 Date DOREEN - 7 assessed: 09/26/23 Feeling nervous, anxious, or on edge: 0 = Not at all Not being able to stop or control worryin = Not at all Worrying too much about different things: 0 = Not at all Trouble relaxin = Not at all Being so restless that it is hard to sit still: 0 = Not at all Becoming easily annoyed or irritable: 0 = Not at all Feeling afraid as if something awful might happen: 0 = Not at all Total DOREEN-7 score (0-4 normal; 5-9 mild; 10-14 moderate; 15-21 severe): 0 Source: Developed by Drs. Dae Miranda, Sierra Weston, [place] and colleagues, with an educational marquise from [employer]. DOREEN-7 Assessment Billing DOREEN-7 Assessment Tool: DOREEN-7 Assessment 02880 Review of Systems Const All systems reviewed & are unremarkable except as noted in HPI and below Physical exam (Primary Care) Vital Signs: Last Vital Signs Pulse 75 09/26/23 14:14 BP 124/80 09/26/23 14:14 Pulse Ox 95 09/26/23 14:14 Oxygen Delivery Method Room Air 09/26/23 14:14 Care Plan Goal for BP management: BP is controlled. BMI result Body Mass Index 28.6 Tobacco/Smoking Status: Tobacco use Status Tobacco use date assessed 09/26/23 09/26/23 14:12 Patient Tobacco Use Status Current everyday Tobacco 09/26/23 14:12 Tobacco use type Cigarette 09/26/23 14:12 PHQ-9: PHQ-9 Score PHQ-9: Total score 0 09/26/23 14:12 Depression Screening Interpretation: Negative Thrive Assessment: Date of Thrive Assessment Date Thrive assessed 09/26/23 09/26/23 14:12 Currently or been in a relationship where the following occur: No concerns reported Const Other: Appearance: Alert.? Oriented X3.? No acute distress.? Head: Normocephalic. Eyes: Pupils equal, round and reactive to light.? ENT: Pharynx normal.?TM intact and pearly kennedy. Neck: Normal inspection.? Neck supple.? CVS: Normal heart rate and rhythm.? Pulses normal.? Respiratory: No respiratory distress.? Breath sounds normal.? Back: No midline tenderness, no C-spine tenderness, Limited range of motion to rotation. Neuro: Oriented X 3.? No motor deficit.? No sensory deficit. CN 2-12 intact Assessment and Plan Assessment & Plan (1) Neck pain: Comment: Will give referral to [facility] neuro/spine. Code(s): M54.2 - Cervicalgia Plan: Will order labs. Orders: Orders Vitamin D 25-OH (D2 and D3) Today Z13.21 - Encounter for screening for nutritional disorder UA CC w/rflx Micro + Cult Today Z13.89 - Encounter for screening for other diso rder Vitamin B6 Today Z13.21 - Encounter for screening for nutritional disorder Vitamin B12 Today Z13.21 - Encounter for screening for nutritional disorder TSH reflex Free T4 Today Z13.29 - Encounter for screening for other suspected endocrine disorder Lipid Panel Today Z13.220 - Encounter for screening for lipoid disorders PSA,Total (Free>4and<10) Today Z12.5 - Encounter for screening for malignant neoplasm of prostate Complete Blood Count Auto Diff Today Z13.0 - Encounter for screening for diseases of the blood and blood-forming organs and certain disorders involving the immune mechanism Comprehensive Met. Panel Today Z91.89 - Other specified personal risk factors, not elsewhere classified Referrals Neuro Spine Referral M54.2 - Cervicalgia Coding Level of Care Code Est Pt Level 3 (45008) Diagnoses Neck pain M54.2 Additional Codes DOREEN-7 Assessment Billing - DOREEN-7 Assessment Tool: DOREEN-7 Assessment 89411 ([id number]) Time Spent (min) 26
[2023-09-26 14:14] VITALS: BP 124/80; PULSE 75; O2SAT 95; BMI 28.6
== END 2023-09-26 14:44 | disposition home or self-care (01) ==
PROVIDERS: Visit Provider Nurse Practitioner Primary Care
DX: M54.2 Cervicalgia (principal)
CPT/HCPCS: 99213

== ENCOUNTER 2023-11-29 07:22 | Outpatient (REF) | payer OTHER, SELFPAY ==
--- NOTE | ~2023-11-29 | MR_ITS ---
EXAMINATION: MR CERVICAL SPINE WITHOUT CONTRAST CLINICAL INFORMATION: Cervicalgia COMPARISON: PA April 04, 2023 TECHNIQUE: MRI of the cervical spine was obtained using routine sequences without contrast. FINDINGS: Again noted postsurgical changes status post C5-C7 yet with solid interbody arthrodesis at these levels. The craniocervical junction is intact. The cervical lordosis is preserved. There is no significant spondylolisthesis. Vertebral body heights are normal without acute compression fracture. No suspicious osseous lesion. Multilevel disc desiccation with mild disc height loss at C4-C5. Bilobed perineural root sleeve cyst on the left at T1-T2. Level by level detail as follows: C2-C3: No spinal canal or neural foraminal stenosis. C3-C4: Small annular disc bulge with bilateral uncovertebral spurring and mild facet arthrosis. No spinal canal stenosis. Mild right without left neural foraminal narrowing. C4-C5: Disc osteophyte complex with minor uncovertebral spurring and mild facet arthrosis. No spinal canal stenosis. Moderate right without left neural foraminal stenosis. C5-C6: Prior ACDF. Uncovertebral spurring and mild facet arthrosis. No spinal canal stenosis. Mild to moderate neural foraminal narrowing. C6-C7: Prior ACDF. Uncovertebral joint hypertrophy and mild facet arthrosis. No spinal canal stenosis. Mild right without left neural foraminal stenosis. C7-T1: Small annular disc bulge with bilateral uncovertebral joint hypertrophy and mild facet arthrosis. No spinal canal stenosis. Mild to moderate right without significant left neural foraminal stenosis. The cervical spinal cord is normal in signal and morphology. No epidural fluid collection, mass, or hematoma. No significant abnormalities of the paraspinal musculature. The flow voids of the major cervical vessels are maintained. The visualized intracranial structures are normal. No demonstrated abnormalities in the visualized neck. MR/MR cervical spine wo con IMPRESSION: 1. Status post C5-C7 ACDF with solid interbody arthrodesis at these levels. 2. Multilevel cervical spondylosis without significant spinal canal stenosis or cord compression. Neural foraminal stenosis is worst and moderate on the right at C4-C5. Electronically signed by: Merced Beckford MD 12/13/2023 06:02 PM EDT
== END 2023-11-29 07:23 | disposition home or self-care (01) ==
LOC: HO.MRI 07:22
PROVIDERS: PCP Nurse Practitioner Primary Care; Visit Provider Nurse Practitioner Primary Care
DX: M54.2 Cervicalgia (principal)
CPT/HCPCS: 72141

== ENCOUNTER 2023-12-28 12:42 | Outpatient (AMB) | payer OTHER, SELFPAY ==
--- NOTE | 2023-12-28 12:50 | A.SPINEOV_ITS ---
Intake Visit Reasons: Neck pain Intake Note: Mr. Armstrong is here today c/o Neck pain, headaches and having trouble swallowing. Clinical Pharmacologist Required: No Allergies prochlorperazine [From COMPAZINE] Allergy (Unknown, Verified 12/28/23 12:54) TINGLING pantoprazole Adverse Reaction (Intermediate, Verified 09/26/23 14:29) Headache omeprazole Adverse Reaction (Intermediate, Uncoded 09/26/23 14:29) Headache Assessment & Plan Assessment & Plan (1) Neck pain: Comment: Will give referral to [facility] neuro/spine. Code(s): M54.2 - Cervicalgia Category: Medical Plan Dear colleague Thank you for referring Ricardo Armstrong to the office today with a chief complaint of neck pain. HPI: This 64-year-old male underwent a two-level anterior diskectomy and fusion C5-6 and C6-7 approximately 20 years ago with good success. He comes in requesting to move his anterior plate. He has mild intermittent swallowing problems but not real symptoms that would medically required to remove the anterior plate. I explained to the patient that removing an anterior plate is not without risk and you should only do this if it is medically indicated which is not in his case. He fully understood my explanation and he was discharged from follow-up. Thank you for allowing me to participate in your patients care. total time spent was 15 minutes in counseling ,coordination of plan and personal review of imaging. Tino Delgadillo MD, PhD Spine Fellowship Trained Neurosurgeon Director, [facility] Coding Level of Care Code New Pt Level 2 (24327) Diagnoses Neck pain M54.2
== END 2023-12-28 13:07 | disposition home or self-care (01) ==
PROVIDERS: PCP Nurse Practitioner Primary Care; Referring Provider Nurse Practitioner Primary Care; Visit Provider Neurological Surgery
DX: M54.2 Cervicalgia (principal)
CPT/HCPCS: 99202

== ENCOUNTER → 2023-12-28 12:42 | Outpatient (BNVA) | payer OTHER, SELFPAY | PROVIDERS: PCP Nurse Practitioner Primary Care; Visit Provider Neurological Surgery | DX: M54.2 Cervicalgia (principal) | CPT/HCPCS: 99202 ==

== ENCOUNTER 2024-02-08 08:15 | Outpatient (REF) | payer OTHER, SELFPAY ==
--- NOTE | ~2024-02-08 | XR_ITS ---
EXAMINATION: XR KNEE, RIGHT CLINICAL INFORMATION: Right knee pain. COMPARISON: None available. TECHNIQUE: Four views of the right knee. FINDINGS: Mild lateral compartment joint space narrowing. Small tricompartmental marginal osteophytes. No osseous erosion. No fracture or dislocation. Trace joint effusion. Atherosclerotic calcifications. XR/XR knee RT 3V IMPRESSION: Mild tricompartmental osteoarthritis. Trace joint effusion. Electronically signed by: Rei Win MD 02/08/2024 10:47 AM [facility]
== END 2024-02-08 08:16 | disposition home or self-care (01) ==
LOC: HO.HMGCX 08:15
PROVIDERS: PCP Nurse Practitioner Family; Visit Provider Registered Nurse
DX: M25.561 Pain in right knee (principal); G62.89 Other specified polyneuropathies
CPT/HCPCS: 73562; 99212

== ENCOUNTER 2024-02-08 08:15 | Outpatient (AMB) | payer OTHER, SELFPAY ==
[2024-02-08 08:18] VITALS: BP 140/90; PULSE 81; O2SAT 99
--- NOTE | 2024-02-08 08:18 | AM.OFFWIN_ITS ---
Intake Vital Signs 02/08/24 08:18 Weight 210 lb BP 140/90 H Blood Pressure Location Lt brachial Position Sitting Pulse 81 Pulse Source Pulse Oximeter Pulse Oximetry (%) 99 Oxygen Delivery Method Room Air Intake Visit Reasons: EP RT knee swollen Intake Note: Patient here for right knee pain. He also wanted to talk about being constipated for about 3 days. Patient Tobacco Use Status: Current everyday Tobacco user Allergies prochlorperazine [From COMPAZINE] Allergy (Unknown, Verified 02/08/24 08:22) TINGLING pantoprazole Adverse Reaction (Intermediate, Verified 02/08/24 08:22) Headache omeprazole Adverse Reaction (Intermediate, Uncoded 02/08/24 08:22) Headache Do you need a note to return to daycare/school/sports/work: No HPI EP RT knee swollen HPI Details This note is constructed using voice recognition software. While every effort has been made to ensure accuracy, home school liaison officer errors may have been included. The patient is a 63 year old male who presents to the clinic today with several years of right sided knee pain, worse in the past 6 months. He is pending establishment of care with his new PCP early 2024. He reports he has a history of arthritis in the knee, and he does use his knee quite a bit. He is concerned because many family members have knee replacements, and feels that he may need 1 at some point. He denies any new injury, or old injury. 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 He reports pain is worse when he is turning either direction or going up or down stairs. He uses a knee brace that has compression to it which helps the pain. He will occasionally take [id number] medication to assist with the pain. He denies redness, warmth to the area. [facility] Medical History (Updated 09/26/23 @ 14:54 by BLAIR Vazquez) Neck pain Osteoarthritis Degenerative disc disease, cervical History of blood transfusion Duodenal ulcer Hypertension Acute blood loss anemia Surgical History Hx of colonoscopy History of esophagogastroduodenoscopy (EGD) Hx of cervical discectomy Hx of arthroscopic knee surgery Hx of hand surgery Family History Mother HTN (hypertension) Maternal Grandmother HTN (hypertension) Maternal Uncle HTN (hypertension) Maternal Uncle HTN (hypertension) Sister Diabetes Social History Household Members: Spouse and Family Housing: House Are you a primary hospice home care coordinator to a significant other at home: No Do you presently have visiting nurse or other home services: No Alcohol intake: never Patient Tobacco Use Status: Current everyday Tobacco user Tobacco use type: Cigarette Cigarettes Per Day: 3 Substance Use Type: Marijuana service: No Current occupational status: unemployed Review of Systems Const All systems reviewed & are unremarkable except as noted in HPI and below Physical Exam Vital Signs: Last Vital Signs Pulse 81 02/08/24 08:18 BP 140/90 H 02/08/24 08:18 Pulse Ox 99 02/08/24 08:18 Oxygen Delivery Method Room Air 02/08/24 08:18 Const General: cooperative, healthy appearing, comfortable, no acute distress and well developed Orientation/consciousness: patient oriented x3 Limitations: no limitations Resp Effort & Inspection: normal respiratory effort and able to speak in complete sentences Skin General skin exam: no rashes or lesions noted Neuro General: patient oriented x3 Extrem Other: Right knee FROM. Tenderness on medial joint line on lateral deviation, and lateral joint line on medial deviation. No ecchymosis, erythema, warmth. Distal neurovascular exam intact. Strength 5/5. General: Yes normal to inspection Assessment & Plan Assessment & Plan (1) Chronic pain of right knee: Code(s): M25.561 - Pain in right knee; G89.29 - Other chronic pain Plan: X-ray ordered to evaluate for arthritis involvement. Advised use of rest, ice, compression, elevation, versus transition to heat due to timeline since symptom onset. Advised [id number] NSAIDs or acetaminophen for assistance with pain. Advised follow up with new PCP as planned. Plan See above for full details and plan. Orders: Orders XR knee RT 3V Today M25.561 - Pain in right knee Coding Level of Care Code Est Pt Level 4 (72412) Diagnoses Chronic pain of right knee M25.561; G89.29
== END 2024-02-08 09:02 | disposition home or self-care (01) ==
PROVIDERS: PCP Nurse Practitioner Family; Visit Provider Registered Nurse
DX: M25.561 Pain in right knee (principal); G89.29 Other chronic pain

== ENCOUNTER 2024-04-25 04:26 | Emergency (ER) | payer MEDICARE, SELFPAY ==
--- NOTE | ~2024-04-25 | CT_ITS ---
EXAMINATION: CT ABDOMEN AND PELVIS WITH CONTRAST CLINICAL INFORMATION: Left-sided abdominal pain. COMPARISON: April 14, 2021. TECHNIQUE: Multidetector volumetric images were obtained from the superior aspect of the liver through the pubic symphysis following administration 85 mL of Omnipaque 350 intravenous contrast. Sagittal and coronal reformatted images were obtained on the technologist's workstation. Oral contrast: No This CT examination was performed using dose optimization techniques as appropriate, variously including the following: *Automated exposure control *Adjustment of mA and/or kV according to patient size (this includes techniques or standardized protocols for targeted exams where dose is matched to indication/reason for exam; i.e. extremities or head) *Use of iterative reconstruction technique. DLP: 587 mGy centimeter. FINDINGS: LUNG BASES: Patchy pulmonary groundglass with a 10 mm nodular component, left lower lung lobe. LIVER, GALLBLADDER, AND BILIARY TREE: Liver measures 15 cm. Decreased enhancement pattern with the heterogeneous morphology pattern slightly denser at the gallbladder fossa region and the posterior right hepatic lobe, likely focal fatty sparing. Portal veins, hepatic veins and intrahepatic portion of the IVC are patent. No pericholecystic fluid collection or gallbladder wall thickening. Common bile duct measures 4 mm. PANCREAS: No focal mass. No peripancreatic fluid collection. No main pancreatic ductal dilatation. Reduced volume of the pancreas. SPLEEN: 10 cm. No focal mass. Small accessory spleen. ADRENAL GLANDS: Soft tissue fullness without nodular lesions. KIDNEYS AND URETERS: No hydronephrosis. No gross nephrolithiasis. No enhancing renal mass. Normal enhancement pattern of the renal parenchyma. BLADDER: Fluid-filled. GASTROINTESTINAL TRACT: Abundant stool within the large intestine. Numerous diverticula in the sigmoid colon. Appendix is normal. No intestinal obstruction pattern. No ascites. No pneumoperitoneum. No pneumatosis intestinalis. ABDOMINAL WALL: Small fat-containing umbilical hernia. LYMPH NODES: Nonspecific mildly prominent lymph nodes, mesenteric and retroperitoneum. VASCULAR: Mixed plaques throughout the abdominal aorta wall and the origin of the main renal arteries and the iliac arteries. No aneurysm or dissection, abdominal aorta. PELVIC VISCERA: The prostate gland is not enlarged. OSSEOUS STRUCTURES: Sclerosis and the sacroiliac joints. Multilevel thoracolumbar spondylosis. No acute fracture or gross listhesis. Spina bifida occulta S1, congenital.. CT/CT abdomen pelvis w IV con IMPRESSION: Acute airspace disease, left lower lung lobe. Underlying neoplasm cannot be entirely excluded. Diverticular disease, sigmoid colon. Hepatic steatosis. Small fat-containing umbilical hernia. Atherosclerosis disease. Fleischner guidelines were followed. Electronically signed by: Ralph Sin MD 04/25/2024 08:19 AM [facility]
--- NOTE | ~2024-04-25 | XR_ITS ---
EXAMINATION: XR CHEST CLINICAL INFORMATION: LLL airspace dz een on CT abd COMPARISON: No prior radiographs. CT abdomen and pelvis performed same day. CT chest 04/14/2021. TECHNIQUE: 2 views of the chest were obtained. FINDINGS: The cardiac, hilar, and mediastinal contours are normal. Lungs demonstrate the clustered centrilobular nodular opacities seen on the CT exam in the posterior lateral left lower lobe are also present but subtle on x-ray, just lateral to left heart border. Appearance on CT suggests focal bronchopneumonia. Right lung is clear. There is no pneumothorax or pleural effusion. There is no focal osseous or soft tissue abnormality. Surgical fusion hardware partially imaged. Mild degenerative spinal changes. XR/XR chest 2V IMPRESSION: 1. Subtle opacity abutting the left heart border, left lower lobe, consistent with the focal bronchopneumonia seen on the CT exam. Given the nodular appearance on CT, follow-up imaging after treatment recommended to ensure resolution. 2. Lungs otherwise clear. No effusions. Electronically signed by: Jose Perez MD 04/25/2024 09:16 AM [facility]
[2024-04-25 04:31] VITALS: BP 150/95; PULSE 80; RESP 16; TEMP 36.7; O2SAT 97; BMI 27.1
[2024-04-25 05:11] LABS: Basophils Percent Auto 0.4 % (0-2); Hematocrit 43.7 % (42.0-52.0); Imm Gran Abs Auto 0.03 X10*3/uL (0.00-0.03); Imm Gran Pct Auto 0.4 % (0.0-0.4); Lymphocytes Absolute Auto 1.2 X10*3/uL (1.2-4.9); Lymphocytes Percent Auto 13.8 % (20-40); Mean Corpuscular HGB Conc 34.3 g/dl (31.0-36.0); Mean Corpuscular Hemoglobin 31.2 pg (27.0-33.0); Mean Corpuscular Volume 90.9 fL (80.0-98.0); Mean Platelet Volume 9.1 fL (9.4-12.4); Monocytes Percent Auto 11.3 % (2-11); Neutrophils Absolute Auto 6.4 x10*3/uL (2.0-8.3); Neutrophils Percent Auto 74.1 % (45-73); Platelet Count 218 X10*3/uL (160-400); Red Blood Count 4.81 X10*6/uL (4.60-5.80); Red Cell Distribution Width 12.5 % (11.0-16.0); White Blood Count 8.6 X10*3/uL (4.8-10.8)
[2024-04-25 05:12] LABS: MANUAL DIFF FLAG NO
[2024-04-25 05:38] LABS: Alanine Aminotransferase 36 U/L (0-40); Albumin Level 4.5 g/dL (3.5-5.0); Alkaline Phosphatase 85 U/L (39-117); Anion Gap 19 (12-20); Aspartate Amino Transferase 46 U/L (5-37); Bilirubin Direct < 0.2 mg/dL (0.0-0.5); Bilirubin Total 0.2 mg/dL (0.0-1.0); Blood Urea Nitrogen 15 mg/dL (9-16); Calcium 9.7 mg/dL (8.4-10.2); Carbon Dioxide 21 mmol/L (22-29); Chloride 99 mmol/L (96-108); Creatinine Clr Calc Pharmacy 101.2; Estimated Glomerular Filt Rate > 60; Glucose Random 105 mg/dL (60-115); Potassium 4.7 mmol/L (3.3-5.1); Sodium 134 mmol/L (135-145); Total Protein 8.5 g/dL (6.5-8.0)
[2024-04-25 05:47] LABS: Influenza A PCR POSITIVE (Negative); Influenza B PCR NEGATIVE (Negative); Resp Syncy Virus RNA Qual PCR NEGATIVE (Negative); SARS COV2 PCR INHOUSE NEGATIVE (Negative)
--- OUTSIDE RECORDS SUMMARY | 2024-04-25 05:51 | XMS_ITS | Clinical Summary ---
Author Organization [facility] Address [address] [place] [address] Care Team Providers Care Pattern Hanger Name Role Phone Tomas Billingsley MD Primary Care Provider [phone] Allergies Active Allergy Reactions Criticality Noted Date Comments Prochlorperazine Respiratory Distress High Atomoxetine Nausea 01/17/2018 Medications * This document contains information received from the source organization and may not represent a complete record from that organization. aspirin tablet 325 mg Take 2 tablets (650 mg total) by mouth 3 times a day as needed for pain. 120 tablet 1 04/10/19 20 Active omeprazole (PriLOSEC) 20 mg capsule Take 1 capsule (20 mg total) by mouth daily. For nausea and heartburn. 30 capsule 2 04/10/19 20 Active polyethylene glycol 3350 (Miralax) powder Follow Colonoscopy prep instructions. 238 g 01/29/20 20 Active ondansetron (ZOFRAN ODT) 4 mg disintegrating tablet Dissolve 1 tablet (4 mg total) in the mouth every 6 hours as needed for nausea or vomiting. 30 tablet 1 04/13/19 22 Active methylphenidate ER 63 mg tablet extended release 24hr Take 54 mg by mouth every morning for 7 days. 7 tablet 10/01/19 23 Active amphetamine-dextro amphetamine XR (Adderall XR) 30 mg capsule Take 1 capsule (30 mg total) by mouth every morning. 30 capsule 02/25/20 23 Active gabapentin (NEURONTIN) 800 mg tablet TAKE 1 TABLET(800 MG) BY MOUTH THREE TIMES DAILY 90 tablet 11 08/26/19 24 Active lisinopriL (PRINIVIL,ZESTRIL) 40 mg tabletIndications: Essential hypertension TAKE 1 TABLET(40 MG) BY MOUTH DAILY 30 tablet 11 08/26/19 24 Active amLODIPine (NORVASC) 10 mg tabletIndications: Essential hypertension TAKE 1 TABLET(10 MG) BY MOUTH DAILY 90 tablet 3 08/26/19 24 Active lisinopriL (PRINIVIL,ZESTRIL) 40 mg tabletIndications: Essential hypertension TAKE 1 TABLET(40 MG) BY MOUTH DAILY 30 tablet 11 08/26/19 24 Active Active Problems Patient Care Coordination No te Formatting of this note migh t be different from the original. Controlled Substance Tier 1 (most stable) Tomas Billingsley MD (PCP) Problem Noted Date Diagnosed Date Other specified anemias 05/25/2021 Recurrent depression 05/25/2021 Opioid use disorder, severe, on maintenance ther apy 01/10/2018 White coat syndrome with diagnosis of hypertensi on 01/10/2018 Arthralgia of multiple sites 07/11/2017 Psychosocial distress 06/19/2016 Shoulder pain 09/10/2014 Lateral epicondylitis 11/23/2013 Attention deficit disorder without hyperactivity 03/28/2012 Overview (03/17/2018): Began in middle school. Assessment & Plan (01/29/2019 12:01 PM EST): Patient has a history of ADHD for which he takes Adderall 30 mg extended release every morning. He said that the medication is working quite well for him. He does not have any concerns with the medication. He would like to continue on the same dose. No concerns this time. We will continue on his same dose of Adderall. Patient does have methadone in his swabs because he does get methadone from outside clinic. [employer] IN[employer]UMENT MAKER checked and appropriate. -Continue Adderall 30 mg extended release every morning -Follow-up PCP for routine physical Assessment & Plan (11/16/2018 2:03 PM EDT): Patient has a history of ADHD for which he takes Adderall 30 mg extended release every morning. He said that this medication is working quite well for him at this time. He does not have any concerns with the. He said that he has been on it for over 10 years. He would like to continue on the same dose at this time. Overall, patient has been appropriate. I do not have any concerns with his medication regimen at this time. We will continue him on Adderall 30 mg daily. [employer] INSTRUMENT MAKER checked and appropriate. We will also follow-up with the oral swab that he had done today. -Continue Adderall 30 mg extended release every morning -Follow-up oral swab -Follow-up with PCP for routine physical Assessment & Plan (11/02/2017 11:27 AM EDT): Patient here for a refill of his Adderall. He said that the medication is working well for him, but sometimes he feels as though the dose is too high. He was wondering if he could possibly have a decreased dose. He said that he used to be on 10 mg extended release a day, and is now on 30 mg. I told him that it would be a good idea to go down to 20 mg a day and see how that is working for him. If the 20 mg a day works for him I think that that would be a better option. Patient did refuse oral swab today. I was told that he has been told in the past that he does not need an oral swab if he is no longer on opioids. I tried to tell him that even for Adderall we need to do swabs, however he refused. I did refill his prescription for 1 month, however he needs to have a discussion with his primary care doctor regarding the need for oral swabs for continuation of medication. He said that he had a false positive in the past that gave him a significant amount of difficulties with his medications. -Adderall 20 mg extended release daily -Follow-up with PCP regarding need for oral swabs -Follow-up with PCP in 1 month Assessment & Plan (08/08/2017 9:32 AM EDT): Will continue radiation medications. Patient declined an oral swab today as he believes he does not need one as he is no longer on pain medications. Discussed that we do need swabs even for Adderall, and that I am okay refilling it for a month until he can have a discussion about this with PCP. 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 At this time his blood pressure is 137/87. Hypertension remains under good control. I will keep him on his current medication regimen. He has not had lab work done in quite some time, so we will check a BMP, lipid panel, and A1c today. -Continue amlodipine 10 mg daily -Continue lisinopril to 40 mg daily -Follow-up BMP Assessment & Plan (11/16/2018 2:03 PM EDT): Patient has a history of hypertension for which he takes a combination of amlodipine and lisinopril. At this time his blood pressure is 130/79. Hypertension under great control today, will not adjust his medications at this time. -Continue amlodipine 10 mg daily -Continue lisinopril 40 mg daily Assessment & Plan (08/08/2017 9:31 AM EDT): Patient's blood pressure continues to be elevated, but he smoked outside prior to coming in. Currently maxed out on amlodipine and lisinopril, and recommended follow-up PCP at next visit. Has cut down to about 5 cigarettes a day, and is working on this, which should help. Neck pain 08/21/2009 Depression 08/21/2009 Resolved Problems Problem Noted Date Diagnosed Date Resolved Date Nausea 11/05/2019 06/04/2022 Achilles tendinitis 04/12/2017 04/20/19 Colon cancer screening 11/15/201604/20 Headache 04/26/2016 06/04/2022 Immunizations Name Administration Dates Next Due INFLUENZA, SPLIT VIRUS, TRIVALENT, PF ,12/09/2011,03/16/2011,02/26 Influenza, Trivalent, MDV, Injectable 03/29/2008 Pneumococcal Polysaccharide Vaccine, 23 Valent 03/28/2008 Tetanus Toxoid, Reduced Diph theria Toxoid, and Acellular Pertussis Vaccine, Adsorbed 07/12/2022,10/03/2009 Family History Medical History Relation Name Comments Other Mother Family History of hypertension Relation Name Status Comments Mother Social History Tobacco Use Types Packs/Day Years Used Date Smoking Tobacco: Some Days Cigarettes Smokeless Tobacco: Never Tobacco Cessation:Ready to Q uit: Yes; Counseling Given: Yes Comments::10/D 10/19/2011 4/D 12/09/2011 + BUPROPRION Alcohol Use Standard Drinks/Week Comments Not Currently 0 (1 standard drink = 0.6 oz pur e alcohol) Sex and Gender Information Value Date Recorded Sex Assigned at Not on file Legal Sex Male 9:59 AM EDT Gender Identity Not on file Sexual Orientation Not on file Last Filed Vital Signs Vital Sign Reading Time Taken Comments Blood Pressure 149/89 07/12/2022 4:25 PM EDT Pulse 67 07/12/2022 4:25 PM EDT Temperature 36.9 ??C (98.5 ??F) 06/07/2012 4:12 PM ED T Respiratory Rate 18 07/12/2022 4:25 PM EDT Oxygen Saturation 99% 10/19/2011 3:48 PM EDT Inhaled Oxygen Concentration - - Weight 91.7 kg (202 lb 3.2 oz) 07/12/2022 4:25 P M EDT Height 182.9 cm (6') 07/12/2022 4:25 PM EDT Body Mass Index 27.42 07/12/2022 4:25 PM EDT Plan of Treatment Health Maintenance Due Date Last Done Comments Cologuard 1961 Colon Cancer Screening 1961 Colonoscopy 1961 FOBT / Fit Test 1961 HIV Screening 1961 Sigmoidoscopy 1961 Pneumococcal Vaccine: Pediatric (0-5 Years) and At-Risk Patients (6-64 Years) (2 of 2 - PCV) 03/28/2009 03/28/2008 CT Lung Cancer Screening (Baseline) 12/09/2011 Zoster Vaccines (1 of 2) 12/09/2011 Basic Metabolic Panel 01/30/2020 01/29/2019 , 04/26/2016, 07/02/2011, Additional history exists COVID-19 Vaccine ( - 2023- season) 2023 Influenza Vaccine (#1) 2023 3, 12/09/2011, 03/16/2011, Additional history exists Alcohol/Substance Use Screening 03/21/2024 Depression Evaluation 03/21/2024 Social Drivers of Health Annual Screening 03/21/2024 DTaP,Tdap,and Td Vaccines (3 - Td or Tdap) 07/12/2032 07/12/2022, 10/03/2009 RSV Vaccine (60+ years old and patients) (1 - 1-dose 75+ series) 2036 Hepatitis C Screening Completed 12/02/2009 Hepatitis B Vaccines Aged Out No long er eligible based on patient's age to complete this topic Procedures * Due to [facility] [place] law, this organization might not be sharing negative HIV tests. Procedure Name Priority Date/Time Associated Diagnosis Comments COMPREHENSIVE METABOLIC PANEL Routine 01/29/2019 11:57 AM EST Hyperglycemia HEPATITIS PANEL, ACUTE Routine 0 3:26 PM EDT from Last 3 Months or Most Recently Relevant to Health Maintenance Results * Due to [place] [employer] law, this organization might not be sharing negative HIV tests. * (ABNORMAL) Comprehensive metabolic panel (01/29/2019 11:57 AM EST) NA 137 135 - 145 mmol/L 01/29/2019 9:55 PM EST [facility] K 4.4 3.5 - 5.3 mmol/L 01/29/2019 9:55 PM EST [facility] Cl 102 97 - 110 mmol/L 01/29/2019 9:55 PM EST [facility] CO2 30 24 - 32 mmol/L 01/29/2019 9:55 PM EST [facility] Anion Gap 5 5 - 15 01/29/2019 9:55 PM EST [facility] Glucose 93 70 - 99 mg/dL 01/29/2019 9:55 PM EST [facility] Creatinine 0.98 0.60 - 1.30 mg/dL 01/29/2019 9:55 PM [facility] eGFR Non- 85(L) >=90 mL/min/BSA 01/29/2019 9:55 PM [facility] eGFR >90 >=90 mL/min/BSA 01/29/2019 9:55 PM [facility] Comment: Units = mL/min/1.73 m2 Glomerular Filtration Rate (GFR) is estimated based on the CKD-EPI Creatinine Equation (2009). Stage ?Description ? GFR 1 ? Normal ? >=90 mL/min/BSA 2 ? Mildly decreased GFR ? 60-89 mL/min/BSA 3 ? Moderately decreased GFR ? 30-59 mL/min/BSA 4 ? Severely decreased GFR ? 15-29 mL/min/BSA 5 ? Kidney Failure ? <15 mL/min/BSA Calcium 9.5 8.7 - 10.7 mg/dL 01/29/2019 9:55 PM [facility] Total Protein 6.9 6.0 - 8.0 g/dL 01/29/2019 9:55 PM [facility] Albumin 4.3 3.5 - 4.8 g/dL 01/29/2019 9:55 PM [facility] Bilirubin, Total 0.2(L) 0.3 - 1.2 mg/dL 01/29/2019 9:55 PM [facility] Alkaline Phosphatase 75 30 - 115 U/L 01/29/2019 9:55 PM [facility] AST 14 10 - 40 U/L 01/29/2019 9:55 PM [facility] ALT 11 10 - 40 U/L 01/29/2019 9:55 PM EST [facility] BUN 16 7 - 23 mg/dL 01/29/2019 9:55 PM EST [facility] Blood specimen (specimen) Structure of peripheral vein / Unknown Venipuncture / Unknown 01/29/2019 11:57 AM EST 01/29/2019 11:57 AM EST us Anju Rich MD LAB BLOOD ORDERABLES Final Result Performing Organization Address City/[facility]/ZIP Co de Phone Number [facility] [address] [place] [address], * Hepatitis Panel, Acute (12/02/2009 3:26 PM EDT) Hepatitis A IgM Antibody Negative Negative [facility] Hepatitis B Core IgM Antibody Negative Negative [facility] Hepatitis B Surface Ag Negative Negative [facility] Hepatitis C Antibody <0.02 <1.00 IV [facility] Comment: Negative Not infected with HCV, unless recent infection is suspected or other evidence exists to indicate HCV infection. 12/02/2009 3:26 PM EDT 12/02/2009 3:26 PM EDT us Tomas Billingsley MD LAB BLOOD ORDERABLES Final Result Performing Organization Address City/[facility] Co de Phone Number [facility] [address] [place] [address] from Last 3 Months or Most Recently Relevant to Health Maintenance Insurance MEDICARE [facility] Advance Directives Documents on File Type Date Recorded Patient Superintendent Gas Distribution Expl anation Health Care Proxy 07/26/2022 12:25 PM 2022 Health Care Proxy 08/23/2011 12:00 AM 08/22 Health Care Proxy 09/11/2008 No Date Care Teams Pattern Hanger Relationship Specialty Start Date End Date Tomas Billingsley MD [address] [place] [id number] PCP - General Family Medicine 10/07/16
--- OUTSIDE RECORDS SUMMARY | 2024-04-25 05:51 | XMS_ITS | Referral Summary ---
Author Organization [facility] Address [address] [place] [address] Care Team Providers Care Model Builder Display Name Role Phone Tomas Billingsley MD Primary Care Provider [phone] [phone] Allergies Active Allergy Reactions Criticality Noted Date [...] does get methadone from outside clinic. [employer] SUPERINTENDENT checked and appropriate. -Continue Adderall 30 mg [...] him on Adderall 30 mg daily. [employer] SUPERINTENDENT checked and appropriate. We will also follow-up [...] and sleep as possible Advise counseling at [facility] Vitamin d deficiency 12/02/2009 Common migraine without [...] Toxoid, and Acellular Pertussis Vaccine, Adsorbed 07/12/2022,10/03/2009 Social History Tobacco Use Types Packs/Day Years [...] 07/12/2022 4:25 PM EDT Plan of Treatment Not on file Procedures * Due to [place] [employer] law, this organization might not be sharing negative HIV tests. Procedure Name Priority Date/Time Associated Diagnosis Comments COMPREHENSIVE METABOLIC PANEL Routine 01/29/2019 11:57 AM EST Hyperglycemia HEPATITIS PANEL, ACUTE Routine 0 3:26 PM EDT from Last 3 Months or Most Recently Relevant to Health Maintenance Results * Due to [place] [employer] law, this organization might not be sharing negative HIV tests. * (ABNORMAL) Comprehensive metabolic panel (01/29/2019 11:57 AM EST) NA 137 135 - 145 mmol/L 01/29/2019 9:55 PM EST [facility] K 4.4 3.5 - 5.3 mmol/L 01/29/2019 9:55 PM [facility] Cl 102 97 - 110 mmol/L 01/29/2019 9:55 PM [facility] CO2 30 24 - 32 mmol/L 01/29/2019 9:55 PM [facility] Anion Gap 5 5 - 15 01/29/2019 9:55 PM [facility] Glucose 93 70 - 99 mg/dL 01/29/2019 9:55 PM [facility] Creatinine 0.98 0.60 - 1.30 mg/dL 01/29/2019 9:55 PM [facility] eGFR Non- 85(L) >=90 mL/min/BSA 01/29/2019 9:55 PM [facility] eGFR >90 >=90 mL/min/BSA 01/29/2019 9:55 PM [facility] Comment: Units = [...] 8.7 - 10.7 mg/dL 01/29/2019 9:55 PM [facility] Total Protein 6.9 6.0 - 8.0 g/dL 01/29/2019 9:55 PM EST [facility] Albumin 4.3 3.5 - 4.8 g/dL 01/29/2019 9:55 PM EST [facility] Bilirubin, Total 0.2(L) 0.3 - 1.2 mg/dL 01/29/2019 9:55 PM EST [facility] Alkaline Phosphatase 75 30 - 115 U/L 01/29/2019 9:55 PM EST [facility] AST 14 10 - 40 U/L 01/29/2019 9:55 PM EST [facility] ALT 11 10 - 40 U/L 01/29/2019 9:55 PM EST [facility] BUN 16 7 - 23 mg/dL 01/29/2019 9:55 PM EST [facility] Blood specimen (specimen) Structure of peripheral vein / Unknown Venipuncture / Unknown 01/29/2019 11:57 AM EST 01/29/2019 11:57 AM EST us Anju Rich MD LAB BLOOD ORDERABLES Final Result [facility] [address] [place] [address], * Hepatitis Panel, Acute (12/02/2009 3:26 PM EDT) Hepatitis A IgM Antibody Negative Negative [facility] Hepatitis B Core IgM Antibody Negative Negative [facility] Hepatitis B Surface Ag Negative Negative [facility] Hepatitis C Antibody <0.02 <1.00 IV [facility] Comment: Negative Not infected with HCV, unless recent infection is suspected or other evidence exists to indicate HCV infection. 12/02/2009 3:26 PM EDT 12/02/2009 3:26 PM EDT us Tomas Billingsley MD LAB BLOOD ORDERABLES Final Result [facility] [address] [address], from Last 3 Months or Most Recently Relevant to Health Maintenance Insurance [facility] Advance Directives Documents on File Type Date Recorded Patient Voice Instructor Expl anation Health Care Proxy 07/26/2022 12:25 PM 2022 Health Care Proxy 08/23/2011 12:00 AM 08/22 Health Care Proxy 09/11/2008 No Date Care Teams Model Builder Display Relationship Specialty Start Date End Date Tomas Billingsley MD [address] [place] [id number] (work) PCP - General Family Medicine 10/07/16
[2024-04-25 06:19] VITALS: BP 136/77; PULSE 83; RESP 12; TEMP 36.9; O2SAT 93
--- NOTE | 2024-04-25 06:48 | ED.GENADULT ---
HPI - General Adult General Chief complaint: General Medical Stated complaint: v/d/n Time Seen by Provider: 04/25/24 06:48 History of Present Illness ED Provider: Seun MOSHER narrative: The patient is a 63-year-old male who was on methadone. He says that although he uses methadone he also snorts fentanyl. He denies using any IV drugs. He says that he has not been feeling well for about 10 days. He has had abdominal pain, nausea, and vomiting. He thought that this might have originally been because he stopped using fentanyl but he tried using fentanyl 2 days ago and it did not make him feel any better. He has been taking his methadone although he thinks he may have vomited his methadone yesterday. He does not know if he has had a fever. Related Data Home Medications ?Medication ?Instructions ?Recorded ?Confirmed amlodipine 10 mg tablet 1 tab PO DAILY 04/14/21 09/26/23 gabapentin 800 mg tablet 1 tab PO TID 04/14/21 09/26/23 lisinopril 40 mg tablet 40 mg PO DAILY 04/14/21 09/26/23 methadone 10 mg/mL oral concentrate 50 mg PO DAILY 06/15/21 09/26/23 dextroamphetamine-amphetamine 30 30 mg PO DAILY 09/26/23 09/26/23 mg tablet (Adderall) dextroamphetamine-amphetamine ER 1 cap PO QAM 09/26/23 09/26/23 10 mg 24hr capsule,extend release Previous Rx's ?Medication ?Instructions ?Recorded cefuroxime axetil 500 mg tablet 500 mg PO BID #14 tabs 04/25/24 doxycycline monohydrate 100 mg 100 mg PO BID #14 caps 04/25/24 capsule oseltamivir 75 mg capsule 75 mg PO BID 5 days #9 caps 04/25/24 promethazine 25 mg tablet 25 mg PO Q6H PRN nausea and 04/25/24 vomiting #7 tabs Allergies Allergy/AdvReac Type Severity Reaction Status Date / Time prochlorperazine Allergy Unknown TINGLING Verified 04/25/24 04:33 [From COMPAZINE] pantoprazole AdvReac Intermediate Headache Verified 04/25/24 04:33 omeprazole AdvReac Intermediate Headache Uncoded 02/08/24 08:22 Review of Systems Review of Systems: Yes all other systems are reviewed and are negative PMFSH Past Medical History Medical History (Updated 04/26/24 @ 00:00 by Carlos Mendoza) Neck pain Osteoarthritis Degenerative disc disease, cervical History of blood transfusion Duodenal ulcer Hypertension Acute blood loss anemia Surgical History Hx of colonoscopy History of esophagogastroduodenoscopy (EGD) Hx of cervical discectomy Hx of arthroscopic knee surgery Hx of hand surgery Family History Family History Mother HTN (hypertension) Maternal Grandmother HTN (hypertension) Maternal Uncle HTN (hypertension) Maternal Uncle HTN (hypertension) Sister Diabetes Social History Social History Household Members: Spouse and Family Housing: House Are you a primary ocular care technologist to a significant other at home: No Do you presently have visiting nurse or other home services: No Alcohol intake: never Patient Tobacco Use Status: Current everyday Tobacco user Tobacco use type: Cigarette Cigarettes Per Day: 3 Substance Use Type: Marijuana service: No Current occupational status: unemployed Physical Exam ED Vital Signs: Vital Signs - 24 hr 04/25/24 08:37 04/25/24 10:23 04/25/24 11:59 Temperature 97.6 F 97.6 F Pulse Rate 74 70 70 Respiratory Rate 14 16 16 Blood Pressure 150/86 H 152/89 H 152/89 H Pulse Oximetry 95 95 95 Oxygen Delivery Method Room Air Room Air Room Air BMI result Body Mass Index 27.1 Const Other: The patient is a 63-year-old male. He looks relatively well for his age. He looks as if he is somewhat uncomfortable however. HENMT Other: Face is symmetrical. Mucous membranes not obviously dry. Eyes Other: No scleral icterus General: appearance normal, both eyes and all related structures Neck Neck: Yes full ROM and Yes no JVD Resp Effort & Inspection: normal respiratory effort Auscultation: clear to auscultation bilaterally Cardio Rate: regular rate Rhythm: regular rhythm Heart sounds: S1 normal heart sound present and S2 normal heart sound present GI Other: The patient is quite tender in the left abdomen. Skin Other: Skin is dry and unremarkable Neuro Other: The patient is awake and alert with a normal mental status. Cranial nerves are grossly intact. He moves all extremities normally. Extrem Other: No peripheral edema Medications Administered Discontinued Medications Generic Name Dose Route Start Last Admin Trade Name Freq PRN Reason Stop Dose Admin Ceftriaxone Sodium 1 gm 04/25/24 09:44 04/25/24 10:21 Ceftriaxone Sodium 1 Gm Vial IVPUSH 04/25/24 09:45 1 gm ONCE ONE Administration Diphenhydramine HCl 25 mg 04/25/24 06:56 04/25/24 07:10 Diphenhydramine Hcl 50 Mg/Ml Vial IVPUSH 04/25/24 06:57 25 mg ONCE ONE Administration Diphenhydramine HCl 25 mg 04/25/24 09:44 04/25/24 10:01 Diphenhydramine Hcl 50 Mg/Ml Vial IVPUSH 04/25/24 09:45 25 mg ONCE ONE Administration Sodium Chloride 1,000 mls @ 999 mls/hr 04/25/24 07:00 04/25/24 08:55 Ns IV 04/25/24 08:00 Infused .Q1H1M CATHLEEN Infusion Doxycycline Hyclate 100 mg/ 250 mls @ 166.67 mls/hr 04/25/24 09:44 04/25/24 11:59 Sodium Chloride IV 04/25/24 11:13 Infused ONCE ONE Infusion Iohexol 100 ml 04/25/24 07:58 04/25/24 08:05 Iohexol 350 Mg/Ml 100 Ml Infus..Btl IV 04/25/24 07:59 85 ml ONCE ONE Administration Ketorolac Tromethamine 10 mg 04/25/24 06:56 04/25/24 07:09 Ketorolac Tromethamine 15 Mg/Ml Vial IVPUSH 04/25/24 06:57 10 mg ONCE ONE Administration Metoclopramide HCl 10 mg 04/25/24 06:56 04/25/24 07:10 Metoclopramide Hcl 10 Mg/2 Ml Vial IVPUSH 04/25/24 06:57 10 mg ONCE ONE Administration Morphine Sulfate 4 mg 04/25/24 09:44 04/25/24 10:01 Morphine Sulfate 4 Mg/Ml Cartridge IVPUSH 04/25/24 09:45 4 mg ONCE ONE Administration Protocol Oseltamivir Phosphate 75 mg 04/25/24 09:45 04/25/24 10:01 Oseltamivir Phosphate 75 Mg Capsule PO 04/25/24 09:46 75 mg ONCE ONE Administration Medical Decision Making Medical Decision Making [facility] Narrative: The patient is a 63-year-old male who has opioid use disorder. He is on methadone but has been using fentanyl as well. He has been sick for over a week. Initially he said he thought he might be dope sick from stopping fentanyl (although he never stopped his methadone). He used fentanyl again 2 days before presenting and something else must be at work. Positive for the flu. He was quite tender in his abdomen. An abdominal CT was done which is negative abdominal pathology but which showed a possible left lower lobe infiltrate. Chest x-ray suggests a small left lower lobe infiltrate. The patient had blood cultures drawn and was given IV antibiotics and IV fluids. He felt considerably better and would be discharged on oral antibiotics as well as oseltamivir. Lab Data 04/25/24 05:05 04/25/24 05:05 Labs: Lab Results 04/25/24 04/25/24 Range/Units 05:05 10:14 WBC 8.6 (4.8-10.8) X10*3/uL RBC 4.81 (4.60-5.80) X10*6/uL Hgb 15.0 (14.0-18.0) g/dl Hct 43.7 (42.0-52.0) % MCV 90.9 (80.0-98.0) fL MCH 31.2 (27.0-33.0) pg MCHC 34.3 (31.0-36.0) g/dl RDW 12.5 (11.0-16.0) % Plt Count 218 (160-400) X10*3/uL MPV 9.1 L (9.4-12.4) fL Immature Gran % (Auto) 0.4 (0.0-0.4) % Neut % (Auto) 74.1 H (45-73) % Lymph % (Auto) 13.8 L (20-40) % [place] % (Auto) 11.3 H (2-11) % Eos % (Auto) 0.0 (0-4) % Baso % (Auto) 0.4 (0-2) % Lymph # (Auto) 1.2 (1.2-4.9) X10*3/uL [place] # (Auto) 1.0 (0.1-1.2) X10*3/uL Eos # (Auto) 0.0 (0.0-0.4) X10*3/uL Baso # (Auto) 0.0 (0.0-0.2) X10*3/uL Abs Immat Gran (auto) 0.03 (0.00-0.03) X10*3/uL Absolute Neuts (auto) 6.4 (2.0-8.3) x10*3/uL Absolute Nucleated RBC 0.000 (0.0-0.012) X10*3/uL Nucleated RBC % (auto) 0.0 (0.0-0.2) /100WBC Sodium 134 L (135-145) mmol/L Potassium 4.7 D (3.3-5.1) mmol/L Chloride 99 (96-108) mmol/L Carbon Dioxide 21 L (22-29) mmol/L Anion Gap 19 (12-20) BUN 15 (9-16) mg/dL Creatinine 0.83 (0.5-1.4) mg/dL Estim Creat Clear Calc 101.2 Estimated GFR > 60 Random Glucose 105 (60-115) mg/dL Lactic Acid 0.9 (0.5-2.0) mmol/L Calcium 9.7 (8.4-10.2) mg/dL Total Bilirubin 0.2 (0.0-1.0) mg/dL Direct Bilirubin < 0.2 (0.0-0.5) mg/dL AST 46 H (5-37) U/L ALT 36 (0-40) U/L Alkaline Phosphatase 85 (39-117) U/L C-Reactive Protein 5.24 H (< or = 0.50) mg/dL Total Protein 8.5 H (6.5-8.0) g/dL Albumin 4.5 (3.5-5.0) g/dL Lipase 11 (8-78) U/L Influenza Type A (PCR) POSITIVE A (Negative) Influenza Type B (PCR) NEGATIVE (Negative) RSV RNA Qual (PCR) NEGATIVE (Negative) SARS-CoV-2 RNA (RT-PCR) NEGATIVE (Negative) Discharge Plan Discharge Clinical Impression: Influenza A, Left lower lobe pneumonia Patient Disposition: Home, Self-Care Instructions: Influenza (ED) Additional Instructions: You have tested positive for the flu today. You has been started on an anti-flu medication called oseltamivir (although known as Tamiflu). Take this medication 2 times a day You also seem to have a small pneumonia in your left lower lung. You has been started on 2 antibiotics for this pneumonia, cefuroxime and doxycycline. Please take both of these medications 2 times a day. Drink a lot of fluids. I have sent a prescription for medication called promethazine that you may use if you have ongoing nausea. Please follow up with your regular providers. Return to the emergency room if significantly worse. Prescriptions: New cefuroxime axetil 500 mg tablet 500 mg PO BID Qty: 14 0RF doxycycline monohydrate 100 mg capsule 100 mg PO BID Qty: 14 0RF oseltamivir 75 mg capsule 75 mg PO BID 5 Days Qty: 9 0RF promethazine 25 mg tablet 25 mg PO Q6H PRN (Reason: nausea and vomiting) Qty: 7 0RF No Action gabapentin 800 mg tablet 1 tab PO TID amlodipine 10 mg tablet 1 tab PO DAILY lisinopril 40 mg tablet 40 mg PO DAILY methadone 10 mg/mL concentrate 50 mg PO DAILY dextroamphetamine-amphetamine 10 mg capsule,extended release 24hr 1 cap PO QAM dextroamphetamine-amphetamine [Adderall] 30 mg tablet 30 mg PO DAILY Referrals: Noam Jauregui FNP-BC [Primary Care Provider] - (Influenza, small pneumonia) Interventions: ED Discharge Assessment Last Done: 04/25/24 11:59 Discharge Date/Time: 04/25/24 12:00 Print Language: Bengali
--- NOTE | 2024-04-25 07:02 | ECG_ITS ---
Test Reason : abd pain Blood Pressure : */* mmHG Vent. Rate : 71 BPM Atrial Rate : 71 BPM P-R Int : 190 ms QRS Dur : 90 ms QT Int : 416 ms P-R-T Axes : 5 5 31 degrees QTcB Int : 452 ms Normal sinus rhythm Normal ECG When compared with ECG of 04-Apr-2023 14:23, No significant change was found Referred By: Adam Kohli Electronically Signed By: Iker Carter
[2024-04-25] MEDS: Ketorolac Tromethamine 15 MG/ML VIAL 10 MG IVPUSH (07:09)
[2024-04-25] MEDS: 0.9 % Sodium Chloride 1,000 ML 999 ML IV (07:10)
[2024-04-25] MEDS: diphenhydrAMINE HCL 50 MG/ML VIAL 25 MG IVPUSH ×2 (07:10→10:01)
[2024-04-25] MEDS: Metoclopramide HCl 10 MG/2 ML VIAL IVPUSH (07:10)
--- NOTE | 2024-04-25 07:26 | PC.NURSE ---
IV established, medicated per the MAR w/ fluids infusing. FLU +. awaiting ct scan
[2024-04-25 07:42] LABS: C Reactive Protein 5.24 mg/dL (< or = 0.50); Lipase 11 U/L (8-78)
[2024-04-25] MEDS: iohexoL 350 MG/ML 100 ML INFUS..BTL IV (08:05)
[2024-04-25 08:37] VITALS: BP 150/86; PULSE 74; RESP 14; O2SAT 95
[2024-04-25] MEDS: Morphine Sulfate 4 MG/ML CARTRIDGE IVPUSH (10:01)
[2024-04-25] MEDS: Oseltamivir Phosphate 75 MG CAPSULE PO (10:01)
[2024-04-25] MEDS: Doxycycline Hyclate 100 MG in 0.9 % Sodium Chloride 250 ML 166.67 MG IV (10:21)
[2024-04-25] MEDS: cefTRIAXone sodium 1 GM VIAL IVPUSH (10:21)
[2024-04-25 10:23] VITALS: BP 152/89; PULSE 70; RESP 16; TEMP 36.4; O2SAT 95
[2024-04-25 10:39] LABS: Lactic Acid 0.9 mmol/L (0.5-2.0)
[2024-04-25 11:59] VITALS: BP 152/89; PULSE 70; RESP 16; TEMP 36.4; O2SAT 95
== END 2024-04-25 12:00 | disposition home or self-care (01) ==
PROVIDERS: Emergency Provider Emergency Medicine; PCP Nurse Practitioner Family
DX: J10.00 Influenza due to other identified influenza virus with unspecified type of pneumonia (principal); R11.2 Nausea with vomiting, unspecified; I10 Essential (primary) hypertension; F15.90 Other stimulant use, unspecified, uncomplicated; Z79.899 Other long term (current) drug therapy
CPT/HCPCS: 0241U; 36415; 71046; 74177; 80053; 82248; 83605; 83690; 85025; 86140; 87040; 93005; 96361; 96365; 96366; 96375; 96376; 99285; J0696; J1200; J1885; J2270; J2765; Q9967

== ENCOUNTER → 2024-04-25 06:59 | Outpatient (BNV) | payer MEDICARE, SELFPAY | PROVIDERS: Emergency Provider Emergency Medicine; PCP Nurse Practitioner Family; Visit Provider Radiology Diagnostic Radiology | DX: K57.30 Diverticulosis of large intestine without perforation or abscess without bleeding (principal); K76.9 Liver disease, unspecified; K42.9 Umbilical hernia without obstruction or gangrene; I70.90 Unspecified atherosclerosis; J98.4 Other disorders of lung; R91.8 Other nonspecific abnormal finding of lung field | CPT/HCPCS: 71046; 74177 ==

== ENCOUNTER → 2024-04-25 07:02 | Outpatient (BNV) | payer MEDICARE, SELFPAY | PROVIDERS: Emergency Provider Emergency Medicine; PCP Nurse Practitioner Family; Visit Provider Internal Medicine Cardiovascular Disease | DX: R10.9 Unspecified abdominal pain (principal) | CPT/HCPCS: 93010 ==